=== PATIENT | female | born 1965 | race Caucasian/White ===

== ENCOUNTER 2017-01-10 02:13 | Emergency (ER) | payer MEDICARE ==
[2017-01-10] MEDS ORDERED: Phenergan 25 MG INJ IV ONE (02:42)
[2017-01-10] MEDS ORDERED: Sodium Chloride 0.9% 1000 ML 1,000 ML IV SCH (02:45)
[2017-01-10] MEDS ORDERED: Phenergan 25 MG INJ ONE (02:50)
[2017-01-10] MEDS ORDERED: Sodium Chloride 0.9% 1000 ML 1,000 ML ONE (02:50)
--- NOTE | 2017-01-10 02:50 | ERPHSYRPT ---
- History of Present Illness Time Seen by Provider: 01/10/17 02:28 Source: patient Exam Limitations: no limitations Patient Subjective Stated Complaint: STATES THAT SHE HAS TROUBLE FREQUENTLY WITH ANXIETY AND NON-SPECIFIC CP - WHILE VISITING HER DYING MOTHER IN THE [facility], SHE BEGAN TO HAVE ANXIETY WITH CHEST PAIN RADIATING TO THE JAW - DESCRIBES HAVING FATIGUE, SHE HAS BEEN UP FOR NEARLY 24 HOURS - ALSO REPORTS SOME DIZZINESS Triage Nursing Assessment: AMBULATORY TO TREATMENT AREA FROM [facility] - MOVES ALL EXTREMITIES WITH EQUAL STRENGTH. ALERT/ORIENTED - ANXIOUS AFFECT. SKIN PWD - NO RASH/INJURY APPRECIATED. RESPS EASY - NON-LABORED. SWELLING OF THE EXTREMITIES Physician History: ABOUT 1 HOUR AGO PT HAD BEEN STANDING AT HER MOTHER'S BEDSIDE AT [facility] WHEN SHE SUDDENLY FELT DIZZY(VERTIGO), ANXIOUS, SHORT OF AIR , SHARP BURNING ACHY LOWER MID-LEFT ANTERIOR CHEST PAIN RADIATING TO THE LEFT SIDE OF THE NECK AND LEFT SHOULDER. PT ALSO C/O INTERMITTENT DIAPHORESIS FOR THE PAST 11 HOURS. Allergies/Adverse Reactions: bupropion HCl [From Wellbutrin] Allergy (Mild, Verified 01/10/17 02:23) CVA SYMPTOMS citalopram hydrobromide [From Celexa] Allergy (Mild, Verified 01/10/17 02:23) UNKNOWN REACTION naproxen Allergy (Mild, Verified 01/10/17 02:23) VOMIT BLOOD sumatriptan [From Imitrex] Allergy (Mild, Verified 01/10/17 02:23) Headache ELEVATES BLOOD PRESSURE sumatriptan succinate [From Imitrex] Allergy (Mild, Verified 01/10/17 02:23) Headache ELEVATES BLOOD PRESSURE Home Medications: Albuterol Sulfate [Proair Hfa] 2 puffs IH TID 02/04/15 [History] Aripiprazole [Abilify] 30 mg PO DAILY 02/04/15 [History] Diazepam [Valium] 2 mg PO TID 02/04/15 [History] Duloxetine HCl 30 mg [Cymbalta 30 MG Capsule] 30 mg PO DAILY 02/04/15 [ History] Duloxetine HCl 30 mg [Cymbalta 30 MG Capsule] 60 mg PO HS 02/04/15 [ History] Gabapentin [Neurontin] 800 mg PO TID 02/04/15 [History] Hydrochlorothiazide 25 mg [hydroDIURIL 25 MG] 12.5 mg PO DAILY 02/04/15 [ History] Hydroxyzine HCl 10 mg PO TID 02/04/15 [History] Omeprazole 20 MG [Prilosec 20 mg] 40 mg PO DAILY 02/04/15 [History] Oxymorphone HCl [Oxymorphone HCl ER] 5 mg PO BID 02/04/15 [History] Ropinirole HCl 2 mg PO HS 02/04/15 [History] Tapentadol HCl [Nucynta ER] 200 mg PO BID 02/04/15 [History] Tizanidine HCl 4 mg [Zanaflex 4 MG] 4 mg PO HS 02/04/15 [History] Trazodone HCl [Oleptro ER] 150 mg PO HS 02/04/15 [History] Hx Tetanus, Diphtheria Vaccination/Date Given: Yes Hx Influenza Vaccination/Date Given: Yes Hx Pneumococcal Vaccination/Date Given: Yes Immunizations Up to Date: No - Review of Systems Constitutional: No Fever Ears, Nose, & Throat: No Throat Pain Respiratory: Dyspnea Cardiac: Chest Pain Abdominal/Gastrointestinal: No Abdominal Pain, No Nausea, No Vomiting Genitourinary Symptoms: No Dysuria Musculoskeletal: Neck Pain, Joint Pain (LEFT SHOULDER PAIN) Skin: No Rash Neurological: Dizziness, No Headache Endocrine: Excessive Sweating All Other Systems: Reviewed and Negative - Past Medical History Pertinent Past Medical History: Yes Neurological History: Migraines ENT History: No Pertinent History Cardiac History: Angina, Other Respiratory History: Asthma Endocrine Medical History: No Pertinent History Musculoskeletal History: Arthritis, Degenerative Disk Disease, Fibromyalgia GI Medical History: GERD, Ulcer History: No Pertinent History Psycho-Social History: Anxiety, Depression Female Reproductive Disorders: Fibroids Other Medical History: chronic back pain - Past Surgical History Past Surgical History: Yes Neuro Surgical History: No Pertinent History Cardiac: Cardiac Catheterization Respiratory: No Pertinent History Gastrointestinal: No Pertinent History Genitourinary: No Pertinent History Musculoskeletal: Joint Replacement Female Surgical History: Hysterectomy Other Surgical History: D&C, right elbow, tubes in ears, tonsilectomy, deviated septum - Social History Smoking Status: Current every day smoker How long have you smoked: 40 Exposure to second hand smoke: No Drug Use: none Patient Lives Alone: Yes - Female History Hx Last Menstrual Period: N/A Hx Now: No - Nursing Vital Signs Nursing Vital Signs: Initial Vital Signs Pulse Rate [Right Radial] 72 Pulse Rate 62 Respiratory Rate 16 Blood Pressure [Right Arm] 120/62 Pain Intensity 0 - Physical Exam General Appearance: alert, anxiety Eye Exam: PERRL/EOMI Ears, Nose, Throat Exam: TMs normal, pharynx normal, moist mucous membranes Neck Exam: normal inspection Respiratory Exam: lungs clear Cardiovascular Exam: normal heart sounds Gastrointestinal/Abdomen Exam: soft, normal bowel sounds Back Exam: normal range of motion Extremity Exam: normal inspection, normal range of motion, No pedal edema Neurologic Exam: alert, cooperative, No normal mood/affect (ANXIOUS) Skin Exam: warm, dry SpO2 Interpretation: normal SpO2: 99 Oxygen Delivery: Room Air - Course Nursing assessment & vital signs reviewed: Yes EKG Interpreted by Me: RATE (66), Sinus Rhythm, NORMAL AXIS, NORMAL INTERVALS - Radiology Exams Chest X-ray Interpretation: Interpreted by me, No Pneumonia Ordered Tests: Active Orders 24 hr Category Date Time Status Vehicle And Equipment Cleaner STAT Care 01/10/17 03:00 Active EKG-ER Only STAT Care 01/10/17 02:40 Active IV Insertion STAT Care 01/10/17 02:42 Active Pulse Oximetry (ED) STAT Care 01/10/17 02:40 Active CHEST 1 VIEW (PORTABLE) Stat Exams 01/10/17 02:41 Taken AMYLASE Stat Lab 01/10/17 02:45 Received CBC W DIFF Stat Lab 01/10/17 02:45 Completed CMP Stat Lab 01/10/17 02:45 Received LIPASE Stat Lab 01/10/17 02:45 Received MAGNESIUM Stat Lab 01/10/17 02:45 Received Manual Differential NC Stat Lab 01/10/17 02:45 Completed TROPONIN Stat Lab 01/10/17 02:45 Received UA Stat Lab 01/10/17 03:10 Completed Urine Triage Profile Stat Lab 01/10/17 03:10 Received Medication Summary Generic Name Dose Route Start Last Admin Trade Name Freq PRN Reason Stop Dose Admin Sodium Chloride 1,000 mls @ 300 mls/hr 01/10/17 02:45 01/10/17 02:59 Sodium Chloride 0.9% 1000 Ml IV 02/09/17 02:44 300 mls/hr .Q3H20M FIIF Administration Discontinued Medications Generic Name Dose Route Start Last Admin Trade Name Sheridan PRN Reason Stop Dose Admin Sodium Chloride Confirm 01/10/17 02:50 Sodium Chloride 0.9% 1000 Ml Administered 01/10/17 02:51 Dose 1,000 mls @ ud .ROUTE .STK-MED ONE Promethazine HCl 12.5 mg 01/10/17 02:42 01/10/17 02:59 Phenergan 25 Mg Inj IV 01/10/17 02:43 12.5 mg STAT ONE Administration Promethazine HCl Confirm 01/10/17 02:50 Phenergan 25 Mg Inj Administered 01/10/17 02:51 Dose 25 mg .ROUTE .STK-MED ONE Lab/Rad Data: Laboratory Result Diagrams 01/10/17 02:45 Laboratory Results 01/10/17 01/10/17 Range/Units 03:10 02:45 WBC 7.6 (4.0-10.5) K/mm3 RBC 4.52 (4.1-5.4) M/mm3 Hgb 13.5 (12.0-16.0) gm/dl Hct 41.8 (35-47) % MCV 92.5 (78-100) fl MCH 29.9 (26-32) pg MCHC 32.3 (32-36) g/dl RDW 13.1 (11.5-14.0) % Plt Count 192 (150-450) K/mm3 MPV 10.6 H (6-9.5) fl Segmented Neutrophils 42 (36.0-66.0) % Lymphocytes (Manual) 47 H (24-44) % Monocytes (Manual) 9 (0.0-12.0) % Eosinophils (Manual) 2 (0.00-3.0) % Differential Comment NORMAL Platelet Estimate NORMAL (NORMAL) Ur Collection Type CLEAN CATCH Urine Color YELLOW (YELLOW) Urine Appearance CLEAR (CLEAR) Urine pH 6.5 (5-6) Ur Specific [place] 1.010 (1.005-1.025) Urine Protein NEGATIVE (Negative) Urine Glucose (UA) NEGATIVE (NEGATIVE) mg/dL Urine Ketones NEGATIVE (NEGATIVE) Urine Nitrite NEGATIVE (NEGATIVE) Urine Bilirubin NEGATIVE (NEGATIVE) Urine Urobilinogen 0.2 (0-1) mg/dL Urine WBC (Auto) NEGATIVE (NEGATIVE) Urine RBC (Auto) NEGATIVE (0-5) Gallito/ul Specimen Received 01/10/17:0300 - Departure Time of Disposition: 05:08 Departure Disposition: Home Clinical Impression: CHEST PAIN, VERTIGO Condition: Fair Critical Care Time: No Instructions: Chest Pain, Vertigo Additional Instructions: FOLLOW UP WITH PRIVATE DOCTOR TOMORROW. Prescriptions: Meclizine HCl 25 mg [Antivert 25 mg] 25 mg PO Q8H PRN PRN #20 tablet PRN Reason: Dizziness
[2017-01-10 02:55] LABS: Mean Cell Volume 92.5 fl (78-100); Mean Corpuscular Hemoglobin 29.9 pg (26-32); Mean Platelet Volume 10.6 fl (6-9.5); Platelet Count 192 K/mm3 (150-450); Red Blood Count 4.52 M/mm3 (4.1-5.4); Red Cell Distribution Width 13.1 % (11.5-14.0); White Blood Count 7.6 K/mm3 (4.0-10.5)
[2017-01-10 03:20] LABS: COMPLETE URINE MICROSCOPIC? NO; Collection Type CLEAN CATCH; Ph 6.5 (5-6)
[2017-01-10 03:22] LABS: Eosinophil 2 % (0.00-3.0); Platelet Estimate NORMAL (NORMAL); Total Cells Counted 100
[2017-01-10 05:24] VITALS: BP 106/52; PULSE 80; O2SAT 100
--- NOTE | 2017-01-10 08:48 | XRAY ---
Indication: Chest pain. Comparison: September 25, 2014 Portable chest again demonstrates normal heart, lungs, and bony thorax.
== END 2017-01-10 05:25 | disposition home or self-care (01) ==
LOC: ED 02:13
DX: R07.89 Other chest pain (principal); R42 Dizziness and giddiness
CPT/HCPCS: 36000; 36415; 71010; 80053; 80307; 81002; 82150; 83690; 83735; 84484; 85025; 93005; 93041; 96360; 96361; 96374; 99283; 99284; J2550

== ENCOUNTER 2017-07-07 13:36 | Emergency (ER) | payer MEDICARE ==
[2017-07-07] MEDS ORDERED: Sodium Chloride 0.9% 1000 ML 1,000 ML IV STA (13:49)
[2017-07-07] MEDS ORDERED: Reglan 10 MG/2 ML IV ONE (13:49)
[2017-07-07] MEDS ORDERED: BENADRYL 50 MG/ML IV ONE (13:49)
[2017-07-07] MEDS ORDERED: TORAdol 30 mg Injection IV ONE (13:49)
--- NOTE | 2017-07-07 13:55 | ERPHSYRPT ---
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 She has headache for the past 4 days, worse and not better with fioricet which has been helping. Some nausea. No fever, chills, visual problems. No vomiting. Hit her head on a curtain kemal 2 weeks ago without LOC or incident. Left sided frontal headache and really similar to prior. Timing/Duration: day(s) (4), gradual onset Quality: aching Head Pain Location: frontal (left) Severity of Pain-Max: severe Severity of Pain-Current: severe Allergies/Adverse Reactions: bupropion HCl [From Wellbutrin] Allergy (Mild, Verified 07/07/17 13:44) CVA SYMPTOMS citalopram hydrobromide [From Celexa] Allergy (Mild, Verified 07/07/17 13:44) UNKNOWN REACTION naproxen Allergy (Mild, Verified 07/07/17 13:44) VOMIT BLOOD sumatriptan [From Imitrex] Allergy (Mild, Verified 07/07/17 13:44) Headache ELEVATES BLOOD PRESSURE sumatriptan succinate [From Imitrex] Allergy (Mild, Verified 07/07/17 13:44) Headache ELEVATES BLOOD PRESSURE Home Medications: Albuterol Sulfate [Proair Hfa] 2 puffs IH TID 02/04/15 [History] Aripiprazole [Abilify] 30 mg PO DAILY 02/04/15 [History] Diazepam [Valium] 2 mg PO TID 02/04/15 [History] Gabapentin [Neurontin] 800 mg PO TID 02/04/15 [History] Omeprazole 20 MG [Prilosec 20 mg] 40 mg PO DAILY 02/04/15 [History] Oxymorphone HCl [Oxymorphone HCl ER] 5 mg PO BID 02/04/15 [History] Ropinirole HCl 2 mg PO HS 02/04/15 [History] Tapentadol HCl [Nucynta ER] 200 mg PO BID 02/04/15 [History] Butalbital 1 gm MC UD 07/07/17 [History] Carisoprodol 350 mg [Soma 350 mg] 350 mg PO DAILY 07/07/17 [History] Codeine/Butalbit/Acetamin/Caff [Fioricet-Cod [id number] Cap] 1 each PO UD 05/18 [History] Furosemide 20 mg [Lasix 20 mg] 20 mg PO DAILY 07/07/17 [History] Magnesium 200 mg PO DAILY 07/07/17 [History] Potassium Chloride 20 Meq [Klor-Con 20 MEQ] 20 meq PO TID 07/07/17 [History] Topiramate 100 mg [Topamax 100 MG] 200 mg PO BID 07/07/17 [History] Venlafaxine HCl [Venlafaxine HCl ER] 150 mg PO BID 07/07/17 [History] Hx Tetanus, Diphtheria Vaccination/Date Given: Yes Hx Influenza Vaccination/Date Given: Yes Hx Pneumococcal Vaccination/Date Given: Yes Immunizations Up to Date: Yes - Review of Systems Constitutional: No Fever, No Chills Eyes: No Vision Changes, No Double Vision Ears, Nose, & Throat: No Symptoms Respiratory: No Symptoms Cardiac: No Chest Pain Abdominal/Gastrointestinal: Nausea, No Abdominal Pain, No Vomiting Musculoskeletal: No Neck Pain Skin: No Rash Neurological: Headache, No Dizziness, No Focal Weakness, No Paralysis, No Parasthesia, No Speech Changes All Other Systems: Reviewed and Negative - Past Medical History Pertinent Past Medical History: Yes Neurological History: Migraines ENT History: No Pertinent History Cardiac History: Angina, Other Respiratory History: Asthma Endocrine Medical History: No Pertinent History Musculoskeletal History: Arthritis, Degenerative Disk Disease, Fibromyalgia GI Medical History: GERD, Ulcer History: No Pertinent History Psycho-Social History: Anxiety, Depression Female Reproductive Disorders: Fibroids Other Medical History: chronic back pain - Past Surgical History Past Surgical History: Yes Neuro Surgical History: No Pertinent History Cardiac: Cardiac Catheterization Respiratory: No Pertinent History Gastrointestinal: No Pertinent History Genitourinary: No Pertinent History Musculoskeletal: Joint Replacement Female Surgical History: Hysterectomy Other Surgical History: D&C, right elbow, tubes in ears, deviated septum - Social History Smoking Status: Never smoker How long have you smoked: 40 Exposure to second hand smoke: No Drug Use: none Patient Lives Alone: Yes (here with family member) - Female History Hx Last Menstrual Period: HYSTERECTOMY Hx Now: No - Nursing Vital Signs Nursing Vital Signs: Initial Vital Signs Temperature 97.8 F 07/07/17 13:40 Pulse Rate 68 07/07/17 13:40 Respiratory Rate 16 07/07/17 13:40 Blood Pressure 110/80 07/07/17 13:40 O2 Sat by Pulse Oximetry 98 07/07/17 13:40 Pain Scale Pain Intensity 10 - Physical Exam General Appearance: alert, other (normaocephalix without contusion, laceration, or ecchymosis) Eye Exam: PERRL/EOMI Ears, Nose, Throat Exam: moist mucous membranes Neck Exam: normal inspection, non-tender, supple Respiratory Exam: normal breath sounds Cardiovascular Exam: regular rate/rhythm Gastrointestinal/Abdominal Exam: soft, No tenderness, No distention Extremity Exam: normal inspection, normal range of motion Mental Status Exam: alert, oriented x 3, 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 Exam: normal hearing, normal speech, PERRL Coordination/Gait Exam: normal gait Motor/Sensory Exam: no motor deficit, no sensory deficit, no pronator drift Skin Exam: normal color, warm, dry, No rash SpO2 Interpretation: normal SpO2: 98 Oxygen Delivery: Room Air - Course Nursing assessment & vital signs reviewed: Yes Ordered Tests: Active Orders 24 hr Category Date Time Status IV Insertion STAT Care 07/07/17 13:49 Active Medication Summary Generic Name Dose Route Start Last Admin Trade Name Freq PRN Reason Stop Dose Admin Magnesium Sulfate/Dextrose 100 mls @ 100 mls/hr 07/07/17 14:45 07/07/17 15:02 Magnesium 1 Gm / 100 Ml D5w IV 07/07/17 16:44 100 mls/hr Q1H FIFI Administration Discontinued Medications Generic Name Dose Route Start Last Admin Trade Name Freq PRN Reason Stop Dose Admin Diphenhydramine HCl 25 mg 07/07/17 13:49 07/07/17 14:04 Benadryl 50 Mg/Ml IV 07/07/17 13:50 25 mg STAT ONE Administration Diphenhydramine HCl Confirm 07/07/17 14:00 Benadryl 50 Mg/Ml Administered 07/07/17 14:01 Dose 50 mg .ROUTE .STK-MED ONE Sodium Chloride 1,000 mls @ 999 mls/hr 07/07/17 13:49 07/07/17 14:03 Sodium Chloride 0.9% 1000 Ml IV 07/07/17 14:49 999 mls/hr .Q1H1M STA Administration Sodium Chloride Confirm 07/07/17 14:00 Sodium Chloride 0.9% 1000 Ml Administered 07/07/17 14:01 Dose 1,000 mls @ ud .ROUTE .STK-MED ONE Ketorolac Tromethamine 30 mg 07/07/17 13:49 07/07/17 14:05 Toradol 30 Mg Injection IV 07/07/17 13:50 30 mg STAT ONE Administration Ketorolac Tromethamine Confirm 07/07/17 14:00 Toradol 30 Mg Injection Administered 07/07/17 14:01 Dose 30 mg .ROUTE .STK-MED ONE Metoclopramide HCl 10 mg 07/07/17 13:49 07/07/17 14:06 Reglan 10 Mg/2 Ml IV 07/07/17 13:50 10 mg STAT ONE Administration Metoclopramide HCl Confirm 07/07/17 14:00 Reglan 10 Mg/2 Ml Administered 07/07/17 14:01 Dose 10 mg .ROUTE .STK-MED ONE - Progress Progress Note: 07/07/17 15:11 She was given IVF, benadryl, reglan, and toradol. Still some headache so was given mag sulfate rider. GRIGGS improving. Will recheck and release with headache instructions. Counseled pt/family regarding: diagnosis, need for follow-up - Departure Time of Disposition: 15:12 Departure Disposition: Home Clinical Impression: Headache Qualifiers: Headache type: unspecified Headache chronicity pattern: episodic headache Intractability: intractable Qualified Code(s): R51 - Headache Condition: Stable Critical Care Time: No Referrals: CINDY ROSE MD [Primary Care Provider] - Instructions: Headache Additional Instructions: HEADACHE 1. After discharge from the emergency department, you should rest at home in a cool, dark, quiet place for 12-24 hours. 2. If any of the following signs or symptoms are noticed, you should be re- evaluated right away: A. Visual changes B. Stiff Neck C. Change in quality or location of pain D. Fever E. Recurrent vomiting 3. If pain medications were prescribed or given, they may cause drowsiness. No driving today and stay with family. Do not take any sedating medication for next 8 hours. Follow up with Dr Rose. Return for problems or concerns.
[2017-07-07] MEDS ORDERED: Sodium Chloride 0.9% 1000 ML 1,000 ML ONE (14:00)
[2017-07-07] MEDS ORDERED: BENADRYL 50 MG/ML ONE (14:00)
[2017-07-07] MEDS ORDERED: TORAdol 30 mg Injection ONE (14:00)
[2017-07-07] MEDS ORDERED: Reglan 10 MG/2 ML ONE (14:00)
[2017-07-07] MEDS ORDERED: Magnesium 1 Gm / 100 Ml D5W*** 200 ML IV ONE (14:34)
[2017-07-07] MEDS: Magnesium 1 Gm / 100 Ml D5W*** 100 ML IV SCH ×2 (14:45→15:02)
[2017-07-07 15:14] VITALS: O2SAT 98
[2017-07-07 15:20] VITALS: BP 124/88; PULSE 60
== END 2017-07-07 15:20 | disposition home or self-care (01) ==
LOC: ED 13:36
DX: R51 Headache (principal)
CPT/HCPCS: 36000; 96360; 96361; 96365; 96374; 96375; 99284; J1200; J1885; J3475

== ENCOUNTER 2017-08-27 17:58 | Emergency (ER) | payer MEDICARE ==
[2017-08-27] MEDS ORDERED: DECADRON 10MG INJ. IM ONE (18:20)
[2017-08-27] MEDS ORDERED: Norflex 60 MG/2 ML IM ONE (18:20)
[2017-08-27] MEDS ORDERED: Ketamine HCl 50 MG/ML IM ONE (18:21)
[2017-08-27] MEDS ORDERED: DECADRON 10MG INJ. ONE (18:39)
[2017-08-27] MEDS ORDERED: Norflex 60 MG/2 ML ONE (18:39)
--- NOTE | 2017-08-27 19:15 | ERPHSYRPT ---
- History of Present Illness Time Seen by Provider: 08/27/17 18:10 Source: patient, family Exam Limitations: no limitations Patient Subjective Stated Complaint: pt here for chronic pain to lower back and states she taken the maxium pain meds for the day and has talked with her pain specialist today. Triage Nursing Assessment: pt arrived per , sedated.answers all questions appropriate.able to undress self, resp easy, skin w/d Physician History: patinet azeem exacerbation of chronic bacxk pain; exerted helping neighbor move yesterday; no fall; same chronic pain but worse; has maxed her pain meds; no change urine of BMs Timing/Duration: today (worse), yesterday (onset), gradual onset, worse Method of Injury: lifting, other (staining) Quality: aching Back Pain Location: lumbar spine Back Pain Radiation: buttocks Severity of Pain-Max: severe Severity of Pain-Current: severe (/) Modifying Factors: Improves With: movement (worse) Associated Symptoms: lower back pain, muscle spasms Previous symptoms: same symptoms as today Allergies/Adverse Reactions: bupropion HCl [From Wellbutrin] Allergy (Mild, Verified 08/27/17 18:18) CVA SYMPTOMS citalopram hydrobromide [From Celexa] Allergy (Mild, Verified 08/27/17 18:18) UNKNOWN REACTION naproxen Allergy (Mild, Verified 08/27/17 18:18) VOMIT BLOOD sumatriptan [From Imitrex] Allergy (Mild, Verified 08/27/17 18:18) Headache ELEVATES BLOOD PRESSURE sumatriptan succinate [From Imitrex] Allergy (Mild, Verified 08/27/17 18:18) Headache ELEVATES BLOOD PRESSURE Home Medications: Albuterol Sulfate [Proair Hfa] 2 puffs IH TID 02/04/15 [History] Aripiprazole [Abilify] 30 mg PO DAILY 02/04/15 [History] Diazepam [Valium] 2 mg PO TID 02/04/15 [History] Gabapentin [Neurontin] 800 mg PO TID 02/04/15 [History] Omeprazole 20 MG [Prilosec 20 mg] 40 mg PO DAILY 02/04/15 [History] Oxymorphone HCl [Oxymorphone HCl ER] 5 mg PO BID 02/04/15 [History] Ropinirole HCl 2 mg PO HS 02/04/15 [History] Tapentadol HCl [Nucynta ER] 200 mg PO BID 02/04/15 [History] Butalbital 1 gm MC UD 07/07/17 [History] Carisoprodol 350 mg [Soma 350 mg] 350 mg PO DAILY 07/07/17 [History] Codeine/Butalbit/Acetamin/Caff [Fioricet-Cod 03-15-561-40 Cap] 1 each PO UD 05/18 [History] Furosemide 20 mg [Lasix 20 mg] 20 mg PO DAILY 07/07/17 [History] Magnesium 200 mg PO DAILY 07/07/17 [History] Potassium Chloride 20 Meq [Klor-Con 20 MEQ] 20 meq PO TID 07/07/17 [History] Topiramate 100 mg [Topamax 100 MG] 200 mg PO BID 07/07/17 [History] Venlafaxine HCl [Venlafaxine HCl ER] 150 mg PO BID 07/07/17 [History] Hx Tetanus, Diphtheria Vaccination/Date Given: Yes Hx Influenza Vaccination/Date Given: Yes Hx Pneumococcal Vaccination/Date Given: Yes Immunizations Up to Date: Yes - Review of Systems Constitutional: No Symptoms Eyes: No Symptoms Ears, Nose, & Throat: No Symptoms Respiratory: No Cough, No Dyspnea, No Wheezing Cardiac: No Chest Pain, No Palpitations, No Syncope Abdominal/Gastrointestinal: No Abdominal Pain, No Nausea, No Vomiting, No Diarrhea Genitourinary Symptoms: No Hematuria, No Incontinence, No Urinary Retention Musculoskeletal: Back Pain, No Fall, No Injury Skin: No Symptoms Neurological: No Symptoms Psychological: No Symptoms Endocrine: No Symptoms Hematologic/Lymphatic: No Symptoms Immunological/Allergic: No Symptoms - Past Medical History Pertinent Past Medical History: Yes Neurological History: Migraines ENT History: No Pertinent History Cardiac History: Angina, Other Respiratory History: Asthma Endocrine Medical History: No Pertinent History Musculoskeletal History: Arthritis, Degenerative Disk Disease, Fibromyalgia GI Medical History: GERD, Ulcer History: No Pertinent History Psycho-Social History: Anxiety, Depression Female Reproductive Disorders: Fibroids Other Medical History: chronic back pain - Past Surgical History Past Surgical History: Yes Neuro Surgical History: No Pertinent History Cardiac: Cardiac Catheterization Respiratory: No Pertinent History Gastrointestinal: No Pertinent History Genitourinary: No Pertinent History Musculoskeletal: Joint Replacement Female Surgical History: Hysterectomy Other Surgical History: D&C, right elbow, tubes in ears, deviated septum - Social History Smoking Status: Current every day smoker How long have you smoked: 40 Exposure to second hand smoke: Yes Alcohol Use: None Drug Use: none Patient Lives Alone: No Significant Family History: no pertinent family hx - Female History Hx Last Menstrual Period: hyster Hx Now: No - Nursing Vital Signs Nursing Vital Signs: Initial Vital Signs Temperature 98.3 F 08/27/17 18:06 Pulse Rate 76 08/27/17 18:06 Respiratory Rate 14 08/27/17 18:06 Blood Pressure 123/83 08/27/17 18:06 O2 Sat by Pulse Oximetry 98 08/27/17 18:06 Pain Scale Pain Intensity [Back] 9 Pain Intensity 9 - Physical Exam General Appearance: severe distress (back pain), alert, thin Eye Exam: PERRL/EOMI, eyes nml inspection, No photophobia Ears, Nose, Throat Exam: normal ENT inspection, TMs normal, pharynx normal, moist mucous membranes Neck Exam: normal inspection, non-tender, supple, full range of motion, No meningismus Respiratory Exam: normal breath sounds, lungs clear, airway intact, No chest tenderness, No respiratory distress Cardiovascular Exam: regular rate/rhythm, normal heart sounds, normal peripheral pulses, capillary refill <2 sec, No murmur Gastrointestinal Exam: soft, normal bowel sounds, No tenderness, No guarding, No rebound Pelvic Exam: deferred Rectal Exam: deferred Back Exam: normal inspection, muscle spasm (lllllower back bilatrera), No normal range of motion (pain), No CVA tenderness, No vertebral tenderness Extremity Exam: normal inspection, normal range of motion, other (pain wiht straight leg raising left> right), No lily's sign, No pedal edema Peripheral Pulses: carotid (R): 4+, carotid (L): 4+, femoral (R): 4+, femoral (L ): 4+ Neurologic Exam: alert, oriented x 3, cooperative, airport 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 IM 08/27/17 18:21 10 mg STAT ONE Administration Dexamethasone Sodium Phosphate Confirm 08/27/17 18:39 Decadron 10mg Inj. Administered 08/27/17 18:40 Dose 10 mg .ROUTE .STK-MED ONE Ketamine HCl 45 mg 08/27/17 18:21 08/27/17 19:00 Ketamine Hcl 50 Mg/Ml IM 08/27/17 18:22 45 mg STAT ONE Administration Orphenadrine Citrate 60 mg 08/27/17 18:20 08/27/17 18:50 Norflex 60 Mg/2 Ml IM 08/27/17 18:21 60 mg STAT ONE Administration Orphenadrine Citrate Confirm 08/27/17 18:39 Norflex 60 Mg/2 Ml Administered 08/27/17 18:40 Dose 60 mg .ROUTE .STK-MED ONE - Progress Progress: improved (after meds), re-examined (after meds) Progress Note: 08/27/17 19:14 discussed treatmetnn plan; here with friend; medicate and recheck; much improved after meds; will release; instructions given Counseled pt/family regarding: diagnosis, need for follow-up - Departure Time of Disposition: 19:15 Departure Disposition: Home Clinical Impression: Acute exacerbation of chronic low back pain Condition: Stable Critical Care Time: No Referrals: CINDY ROSE MD [Primary Care Provider] - Instructions: Low Back Pain Additional Instructions: Back pain instructions. Rest, ice x 24-48 hours, then warm compresses; no heavy lifting (>20#'s) x 3-5 days; call [facility] or [facility] Med doctor in am for follow up appointment and or referral as needed.; continue home meds Return if problems. Take meds as prescribed. Follow-up with family doctor as directed. Call for appointment. Return if any problems. If you smoke please stop. Call or follow up with your family doctor for assistance if you need it to stop. Please wear your seatbelt when driving. Have a nice day. Thank you for allowing us to participate in your care today. :o) Dr Antonio Luz
[2017-08-27 19:32] VITALS: O2SAT 99
[2017-08-27 19:48] VITALS: BP 113/70; PULSE 90
== END 2017-08-27 19:48 | disposition home or self-care (01) ==
LOC: ED 17:58
DX: M54.5 Low back pain (principal); G89.29 Other chronic pain; X50.0XXA Overexertion from strenuous movement or load, initial encounter
CPT/HCPCS: 96372; 99283; J1100; J2360

== ENCOUNTER 2018-01-22 20:04 | Emergency (ER) | payer MEDICARE ==
[2018-01-22] MEDS ORDERED: Norflex 60 MG/2 ML IM ONE (20:56)
[2018-01-22] MEDS ORDERED: TORAdol 30 mg Injection IM ONE (20:56)
[2018-01-22] MEDS ORDERED: TORAdol 30 mg Injection ONE (21:03)
[2018-01-22] MEDS ORDERED: Norflex 60 MG/2 ML ONE (21:04)
--- NOTE | 2018-01-22 21:05 | ERPHSYRPT ---
- History of Present Illness Time Seen by Provider: 01/22/18 20:50 Source: patient Exam Limitations: no limitations Patient Subjective Stated Complaint: patient was moving a recliner from one room to another. Got hurt but it wasn't a big deal and then went to move some totes and twisted her back wrong and felt it "pop". Pain radiated from low back to up high and has now caused a migraine. Triage Nursing Assessment: Pt A&O x3, walked in with a cane very slowly and appears to be in severe pain. bilateral upper and lower pulses normal. vitals wnl. Physician History: Pt has a Hx of chronic back pain, had MRI recently. She was lifting furniture today, felt a "pop" in her low back and developed severe pain, radiating to both legs. She denies leg weakness, numbness, no loss of bladder or bowel control, no fever, abdominal pain or vomiting. Timing/Duration: today Method of Injury: lifting Quality: radiating, sharp Back Pain Location: lumbar spine Back Pain Radiation: buttocks, upper legs Severity of Pain-Max: severe Severity of Pain-Current: severe Modifying Factors: Improves With: immobilization, movement Associated Symptoms: denies symptoms Previous symptoms: same symptoms as today Allergies/Adverse Reactions: bupropion HCl [From Wellbutrin] Allergy (Mild, Verified 01/22/18 20:31) CVA SYMPTOMS citalopram hydrobromide [From Celexa] Allergy (Mild, Verified 01/22/18 20:31) UNKNOWN REACTION naproxen Allergy (Mild, Verified 01/22/18 20:31) VOMIT BLOOD sumatriptan [From Imitrex] Allergy (Mild, Verified 01/22/18 20:31) Headache ELEVATES BLOOD PRESSURE sumatriptan succinate [From Imitrex] Allergy (Mild, Verified 01/22/18 20:31) Headache ELEVATES BLOOD PRESSURE Home Medications: Albuterol Sulfate [Proair Hfa] 2 puffs IH TID 02/04/15 [History] Aripiprazole [Abilify] 30 mg PO DAILY 02/04/15 [History] Diazepam [Valium] 2 mg PO TID 02/04/15 [History] Gabapentin [Neurontin] 800 mg PO TID 02/04/15 [History] Omeprazole 20 MG [Prilosec 20 mg] 40 mg PO DAILY 02/04/15 [History] Oxymorphone HCl [Oxymorphone HCl ER] 5 mg PO BID 02/04/15 [History] Ropinirole HCl 2 mg PO HS 02/04/15 [History] Tapentadol HCl [Nucynta ER] 200 mg PO BID 02/04/15 [History] Butalbital 1 gm MC UD 07/07/17 [History] Carisoprodol 350 mg [Soma 350 mg] 350 mg PO DAILY 07/07/17 [History] Codeine/Butalbit/Acetamin/Caff [Fioricet-Cod 18-14-360-40 Cap] 1 each PO UD 05/18 [History] Furosemide 20 mg [Lasix 20 mg] 20 mg PO DAILY 07/07/17 [History] Magnesium 200 mg PO DAILY 07/07/17 [History] Potassium Chloride 20 Meq [Klor-Con 20 MEQ] 20 meq PO TID 07/07/17 [History] Topiramate 100 mg [Topamax 100 MG] 200 mg PO BID 07/07/17 [History] Venlafaxine HCl [Venlafaxine HCl ER] 150 mg PO BID 07/07/17 [History] Phentermine HCl [Adipex-P] 37.5 mg PO DAILY 01/22/18 [History] Hx Tetanus, Diphtheria Vaccination/Date Given: Yes Hx Influenza Vaccination/Date Given: Yes Hx Pneumococcal Vaccination/Date Given: Yes - Review of Systems Constitutional: No Symptoms Abdominal/Gastrointestinal: Nausea Musculoskeletal: Back Pain All Other Systems: Reviewed and Negative - Past Medical History Pertinent Past Medical History: Yes Neurological History: Migraines ENT History: No Pertinent History Cardiac History: Angina, Other Respiratory History: Asthma Endocrine Medical History: No Pertinent History Musculoskeletal History: Arthritis, Degenerative Disk Disease, Fibromyalgia GI Medical History: GERD, Ulcer History: No Pertinent History Psycho-Social History: Anxiety, Depression Female Reproductive Disorders: Fibroids Other Medical History: chronic back pain - Past Surgical History Past Surgical History: Yes Neuro Surgical History: No Pertinent History Cardiac: Cardiac Catheterization Respiratory: No Pertinent History Gastrointestinal: No Pertinent History Genitourinary: No Pertinent History Musculoskeletal: Joint Replacement Female Surgical History: Hysterectomy Other Surgical History: D&C, right elbow, tubes in ears, deviated septum - Social History Smoking Status: Current every day smoker How long have you smoked: 40 Exposure to second hand smoke: Yes Alcohol Use: None Drug Use: none Patient Lives Alone: No Significant Family History: no pertinent family hx - Female History Hx Now: No - Nursing Vital Signs Nursing Vital Signs: Initial Vital Signs Temperature 98.0 F 01/22/18 20:14 Pulse Rate 82 01/22/18 20:14 Blood Pressure 112/76 01/22/18 20:14 O2 Sat by Pulse Oximetry 98 01/22/18 20:14 Pain Scale Pain Intensity [Posterior Back 9 ] Pain Intensity 8 - Physical Exam General Appearance: no apparent distress Eye Exam: eyes nml inspection Ears, Nose, Throat Exam: normal ENT inspection Neck Exam: normal inspection, non-tender, supple Respiratory Exam: normal breath sounds, lungs clear, airway intact, No chest tenderness Cardiovascular Exam: regular rate/rhythm, normal heart sounds, normal peripheral pulses, No murmur Gastrointestinal Exam: soft, normal bowel sounds, No tenderness, No distention Back Exam: normal inspection, decreased range of motion, muscle spasm, No CVA tenderness, No vertebral tenderness, No point tenderness Extremity Exam: normal inspection, No calf tenderness Neurologic Exam: alert, oriented x 3, cooperative, normal mood/affect, No motor deficits Skin Exam: normal color, warm, dry, No rash Lymphatic Exam: No adenopathy SpO2 Interpretation: normal SpO2: 98 Oxygen Delivery: Room Air - Radiology Exams L-Spine X-ray Interpretation: Interpreted by me, Negative Ordered Tests: Active Orders 24 hr Category Date Time Status LUMBAR LIMITED (2 OR 3 VIEWS) Stat Exams 01/22/18 20:56 Taken CULTURE,URINE Stat Lab 01/22/18 23:15 Received UA W/ MICROSCOPIC Stat Lab 01/22/18 23:15 Completed Urine Triage Profile Stat Lab 01/22/18 22:30 Completed Medication Summary Discontinued Medications Generic Name Dose Route Start Last Admin Trade Name Sheridan PRN Reason Stop Dose Admin Cephalexin HCl 500 mg 01/23/18 00:07 Keflex 500 Mg PO 01/23/18 00:08 STAT ONE Ketorolac Tromethamine 60 mg 01/22/18 20:56 01/22/18 21:45 Toradol 30 Mg Injection IM 01/22/18 20:57 60 mg STAT ONE Administration Ketorolac Tromethamine Confirm 01/22/18 21:03 Toradol 30 Mg Injection Administered 01/22/18 21:04 Dose 60 mg .ROUTE .STK-MED ONE Morphine Sulfate 4 mg 01/22/18 22:59 01/22/18 23:10 Morphine Sulfate 4 Mg Inj IM 01/22/18 23:00 4 mg STAT ONE Administration Morphine Sulfate Confirm 01/22/18 23:06 Morphine Sulfate 4 Mg Inj Administered 01/22/18 23:07 Dose 4 mg .ROUTE .STK-MED ONE Orphenadrine Citrate 60 mg 01/22/18 20:56 01/22/18 21:45 Norflex 60 Mg/2 Ml IM 01/22/18 20:57 60 mg STAT ONE Administration Orphenadrine Citrate Confirm 01/22/18 21:04 Norflex 60 Mg/2 Ml Administered 01/22/18 21:05 Dose 60 mg .ROUTE .STK-MED ONE Promethazine HCl 25 mg 01/22/18 22:59 01/22/18 23:10 Phenergan 25 Mg Inj IM 01/22/18 23:00 25 mg STAT ONE Administration Promethazine HCl Confirm 01/22/18 23:06 Phenergan 25 Mg Inj Administered 01/22/18 23:07 Dose 25 mg .ROUTE .STK-MED ONE Lab/Rad Data: Laboratory Results 01/22/18 01/22/18 Range/Units 23:15 22:30 Ur Collection Type CCMS Urine Color YELLOW (YELLOW) Urine Appearance SLIGHTLY CLOUDY (CLEAR) Urine pH 6.0 (5-6) Ur Specific [place] 1.020 (1.005-1.025) Urine Protein NEGATIVE (Negative) Urine Ketones NEGATIVE (NEGATIVE) Urine Blood NEGATIVE (0-5) [place]/ul Urine Nitrite POSITIVE (NEGATIVE) Urine Bilirubin NEGATIVE (NEGATIVE) Urine Urobilinogen NORMAL (0-1) mg/dL Ur Leukocyte Esterase 1+ (NEGATIVE) Urine Microscopic WBC 25-50 (0-5) /HPF Ur Epithelial Cells RARE (FEW) /HPF Calcium Oxalate Crystal 10-25 (NEGATIVE) /HPF Urine Bacteria MANY (NEGATIVE) /HPF Urine Mucus SLIGHT (NEGATIVE) /HPF Urine Culture Reflexed YES (NO) Urine Glucose NEGATIVE (NEGATIVE) mg/dL Urine Opiates Level NEG. (NEGATIVE) Ur Methadone NEG. (NEGATIVE) Urine Barbiturates POS. (NEGATIVE) Ur Phencyclidine (PCP) NEG. (NEGATIVE) Urine Amphetamine NEG. (NEGATIVE) U Benzodiazepine Level POS. (NEGATIVE) Urine Cocaine NEG. (NEGATIVE) Urine Marijuana (THC) NEG. (NEGATIVE) Specimen Received 01-22-18 6642 - Progress Progress: improved Progress Note: 01/23/18 00:22 Improved after Morphine im, no fever, asleep, no severe pain or distress. I discussed the results with her, she was given Keflex x1 PO. She told me that she takes Opana for her back pain, but she is very low on it. I suggested to contact her Pain Clinic this morning,, I gave her Rx for Opana 5mg Po Q6h PRN # 5 tablets. - Departure Time of Disposition: 00:25 Departure Disposition: Home Clinical Impression: Back pain Qualifiers: Back pain location: low back pain Chronicity: chronic Back pain laterality: bilateral Sciatica presence: with sciatica Sciatica laterality: sciatica laterality unspecified Qualified Code(s): M54.40 - Lumbago with sciatica, unspecified side; G89.29 - Other chronic pain; G89.29 - Other chronic pain UTI (urinary tract infection) Qualifiers: Urinary tract infection type: site unspecified Hematuria presence: without hematuria Qualified Code(s): N39.0 - Urinary tract infection, site not specified Condition: Stable Critical Care Time: No Referrals: KAUSHIK CABRERA MD [Primary Care Provider] - Additional Instructions: Rest bx 2-3 days, apply moist heat to painful muscles, return if severe pain, sudden leg weakness, numbness, loss of bladder, bowel control!
[2018-01-22] MEDS ORDERED: Phenergan 25 MG INJ IM ONE (22:59)
[2018-01-22] MEDS ORDERED: MORPHINE SULFATE 4 MG INJ IM ONE (22:59)
[2018-01-22] MEDS ORDERED: MORPHINE SULFATE 4 MG INJ ONE (23:06)
[2018-01-22] MEDS ORDERED: Phenergan 25 MG INJ ONE (23:06)
[2018-01-22 23:27] LABS: Amphetamine,Urine NEG. (NEGATIVE); Barbiturate,Urine POS. (NEGATIVE); Benzodiazepine,Urine POS. (NEGATIVE); Cocaine,Urine NEG. (NEGATIVE); Methadone,Urine NEG. (NEGATIVE); Opiate,Urine NEG. (NEGATIVE); PCP,Urine NEG. (NEGATIVE); THC,Urine NEG. (NEGATIVE)
[2018-01-22 23:27] LABS: Appearance SLIGHTLY CLOUDY (CLEAR); Glucose NEGATIVE (NEGATIVE); Ketones NEGATIVE (NEGATIVE); Leukocyte Esterase 1+ (NEGATIVE); Nitrite POSITIVE (NEGATIVE); Protein,Urine Dip NEGATIVE (Negative)
[2018-01-22 23:28] LABS: Bilirubin NEGATIVE (NEGATIVE); Blood NEGATIVE Ery/ul (0-5); Urobilinogen NORMAL mg/dL (0-1)
[2018-01-22 23:29] LABS: Bacteria MANY /HPF (NEGATIVE); Epithelial Cells RARE /HPF (FEW); Mucus SLIGHT /HPF (NEGATIVE); WBC 25-50 /HPF (0-5)
[2018-01-23] MEDS ORDERED: KEFLEX 500 MG PO ONE (00:07)
[2018-01-23] MEDS ORDERED: KEFLEX 500 MG ONE (00:21)
[2018-01-23 00:48] VITALS: BP 129/67; PULSE 75; O2SAT 97
--- NOTE | 2018-01-23 08:54 | XRAY ---
Indication: Pain. Comparison: April 08, 2014. 3 views of the lumbar spine unchanged again demonstrating minimal levoscoliosis, minimal multilevel anterior endplate spurring, mild L3-S1 disc space narrowing, and bilateral L5-S1 degenerative facet arthropathy. No new/acute findings.
== END 2018-01-23 00:48 | disposition home or self-care (01) ==
LOC: ED 20:04
DX: M54.40 Lumbago with sciatica, unspecified side (principal); G89.29 Other chronic pain; N39.0 Urinary tract infection, site not specified; Z79.899 Other long term (current) drug therapy
CPT/HCPCS: 72100; 80307; 81000; 87077; 87086; 87186; 96372; 99284; J1885; J2270; J2360; J2550; A9270-GY

== ENCOUNTER 2019-04-20 16:44 | Observation (INO) | payer MEDICARE ==
[2019-04-20 17:23] LABS: BASOPHIL % 0.4 % (0.0-0.4); Basophil (Absolute #) 0.03 (0-0.4); Eosinophil % 2.1 % (0.00-5.0); Eosinophil (Absolute #) 0.14 (0-0.5); Granulocyte Absolute (ANC) 3.03 (1.4-6.9); Granulocytes % 45.1 % (36.0-66.0); Hematocrit 41.8 % (35-47); Hemoglobin 13.9 gm/dl (12.0-16.0); Lymphocyte (Absolute #) 2.93 (1.0-4.6); Lymphocytes % 43.6 % (24.0-44.0); Mean Cell Volume 90.3 fl (78-100); Mean Corpuscular Hgb Concent. 33.3 g/dl (32-36); Mean Platelet Volume 10.4 fl (6-9.5); Monocyte (Absolute #) 0.59 (0.0-1.3); Monocytes % 8.8 % (0.0-12.0); Platelet Count 210 K/mm3 (150-450); Red Blood Count 4.63 M/mm3 (4.1-5.4); Red Cell Distribution Width 12.9 % (11.5-14.0); White Blood Count 6.7 K/mm3 (4.0-10.5)
[2019-04-20 17:42] LABS: ALKALINE PHOSPHATASE 74 U/L (38-126); ANION GAP 12.8 MEQ/L (5-15); BLOOD UREA NITROGEN 12 mg/dL (7-17); CHLORIDE 105 mmol/L (98-107); Calcium 9.7 mg/dL (8.4-10.2); Carbon Dioxide 27 mmol/L (22-30); Creatinine 1 0.64 mg/dL (0.52-1.04); Glucose 93 mg/dL (74-106); Potassium 3.8 mmol/L (3.5-5.1); SGOT/AST 21 U/L (14-36); SGPT/ALT 17 U/L (0-35); SODIUM 141 mmol/L (137-145); Total Protein 6.6 g/dL (6.3-8.2)
[2019-04-20 17:43] LABS: TROPONIN < 0.012 ng/mL (0.000-0.034)
[2019-04-20] MEDS ORDERED: BABY ASPIRIN 81 MG CHEW PO ONE (18:03)
--- NOTE | 2019-04-20 18:08 | ERPHSYRPT ---
- History of Present Illness Time Seen by Provider: 04/20/19 17:58 Historian: patient Exam Limitations: no limitations Patient Subjective Stated Complaint: pt here for sudden onset of chest pain to center of chest. nonradiating.no nausea, some sob which is gone now. Triage Nursing Assessment: pt alert, arrived per ambulance. was given 2 nitro enroute that helped, skin w/d/p,,chest clear, abd soft, no edema Physician History: 53-year-old white female with history of migraines, asthma, angina, GERD, ulcers , fibroids, arthritis, degenerative disc disease, fibromyalgia, anxiety, depression, panic disorder, chronic back pain Patient arrives with complaint of pain in her anterior sternal region described as a pressure associated with shortness of breath and nausea onset 2 hours ago Patient states that she took one of 81 mg aspirin Patient states that she is on oxymorphone 10 mg the sent to ER 250 mg in soma 350 mg at home She states she did not take her oxymorphone Past medical history includes migraines, asthma, angina, GERD, ulcers, fibroids , arthritis, degenerative disc disease, fibromyalgia, anxiety, depression, panic disorder, chronic back pain Past surgical history includes cardiac catheter, tonsillectomy, hysterectomy, right elbow replacement, D&C, 2-3 years, deviated septum Timing/Duration: today (2 hours prior to arrival) Activities at Onset: none Quality: pressure Location: substernal Chest Pain Radiation: no radiation Severity of Pain-Max: moderate Modifying Factors: Improves With: nothing Associated Symptoms: nausea, shortness of breath, No vomiting, No palpitations, No heartburn, No abdominal pain, No cough, No hurts to breathe, No diaphoresis, No chills, No fever, No fatigue, No weakness, No swelling/lump in chest, No syncope, No rash, No headache, No dizziness, No edema, No back pain Prior Chest Pain/Cardiac Workup: cardiac cath Nitro Today/Relief: 0.4 mg x 2 Aspirin Treatment Today: 81 mg x 1 Allergies/Adverse Reactions: bupropion HCl [From Wellbutrin] Allergy (Mild, Verified 04/20/19 16:59) CVA SYMPTOMS citalopram hydrobromide [From Celexa] Allergy (Mild, Verified 04/20/19 16:59) UNKNOWN REACTION naproxen Allergy (Mild, Verified 04/20/19 16:59) VOMIT BLOOD sumatriptan [From Imitrex] Allergy (Mild, Verified 04/20/19 16:59) Headache ELEVATES BLOOD PRESSURE sumatriptan succinate [From Imitrex] Allergy (Mild, Verified 04/20/19 16:59) Headache ELEVATES BLOOD PRESSURE Home Medications: Albuterol Sulfate [Proair Hfa] 2 puffs IH TID 02/04/15 [History] Aripiprazole [Abilify] 30 mg PO DAILY 02/04/15 [History] Gabapentin [Neurontin] 800 mg PO TID 02/04/15 [History] Omeprazole 20 MG [Prilosec 20 mg] 40 mg PO DAILY 02/04/15 [History] Oxymorphone HCl [Oxymorphone HCl ER] 5 mg PO BID 02/04/15 [History] Ropinirole HCl 2 mg PO HS 02/04/15 [History] Tapentadol HCl [Nucynta ER] 200 mg PO BID 02/04/15 [History] Butalbital 1 gm MC UD 07/07/17 [History] Carisoprodol 350 mg [Soma 350 mg] 350 mg PO DAILY 07/07/17 [History] Codeine/Butalbit/Acetamin/Caff [Fioricet-Cod [id number] Cap] 1 each PO UD 05/18 [History] Furosemide 20 mg [Lasix 20 mg] 20 mg PO DAILY 07/07/17 [History] Potassium Chloride 20 Meq [Klor-Con 20 MEQ] 20 meq PO TID 07/07/17 [History] Venlafaxine HCl [Venlafaxine HCl ER] 150 mg PO BID 07/07/17 [History] Phentermine HCl [Adipex-P] 37.5 mg PO DAILY 01/22/18 [History] Hx Tetanus, Diphtheria Vaccination/Date Given: No Hx Influenza Vaccination/Date Given: No Hx Pneumococcal Vaccination/Date Given: No Immunizations Up to Date: Yes - Review of Systems Constitutional: No Fever, No Chills Eyes: No Symptoms Ears, Nose, & Throat: No Symptoms Respiratory: Dyspnea, No Cough Cardiac: Chest Pain Abdominal/Gastrointestinal: Nausea, No Abdominal Pain, No Vomiting, No Diarrhea Genitourinary Symptoms: No Dysuria Musculoskeletal: No Back Pain, No Neck Pain Skin: No Rash Neurological: No Dizziness, No Focal Weakness, No Sensory Changes Psychological: No Symptoms Endocrine: No Symptoms All Other Systems: Reviewed and Negative - Past Medical History Pertinent Past Medical History: Yes Neurological History: Migraines ENT History: No Pertinent History Cardiac History: Angina, Other Respiratory History: Asthma Endocrine Medical History: No Pertinent History Musculoskeletal History: Arthritis, Degenerative Disk Disease, Fibromyalgia GI Medical History: GERD, Ulcer History: No Pertinent History Psycho-Social History: Anxiety, Depression, Panic Disorder Female Reproductive Disorders: Fibroids Other Medical History: chronic back pain - Past Surgical History Past Surgical History: Yes Neuro Surgical History: No Pertinent History Cardiac: Cardiac Catheterization Respiratory: No Pertinent History Gastrointestinal: No Pertinent History Genitourinary: No Pertinent History Musculoskeletal: Joint Replacement Female Surgical History: Hysterectomy Other Surgical History: D&C, right elbow, tubes in ears, deviated septum - Social History Smoking Status: Current every day smoker How long have you smoked: 40 Exposure to second hand smoke: Yes Alcohol Use: None Drug Use: none Patient Lives Alone: No Significant Family History: no pertinent family hx - Female History Hx Last Menstrual Period: hyster Hx Now: No - Nursing Vital Signs Nursing Vital Signs: Initial Vital Signs Temperature 98.7 F 04/20/19 16:49 Pulse Rate 69 04/20/19 16:49 Respiratory Rate 20 04/20/19 16:49 Blood Pressure 124/78 04/20/19 16:49 O2 Sat by Pulse Oximetry 97 04/20/19 16:49 Pain Scale Pain Intensity 7 - Physical Exam General Appearance: mild distress, alert Eye Exam: PERRL/EOMI, eyes nml inspection Ears, Nose, Throat Exam: normal ENT inspection, moist mucous membranes Neck Exam: normal inspection, non-tender, supple, full range of motion Respiratory Exam: normal breath sounds, lungs clear, No respiratory distress Cardiovascular Exam: regular rate/rhythm, capillary refill <2 sec Gastrointestinal/Abdomen Exam: soft, No tenderness, No mass Back Exam: normal inspection, No CVA tenderness, No vertebral tenderness Extremity Exam: normal inspection, normal range of motion Neurologic Exam: alert, oriented x 3, cooperative, 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, normal mood/affect, sensation nml, No motor deficits Skin Exam: normal color, warm, dry SpO2 Interpretation: normal (98%) SpO2: 98 - Course Nursing assessment & vital signs reviewed: Yes EKG Interpreted by Me: RATE (66 bpm), Sinus Rhythm, NORMAL AXIS, Other (EKG: Sinus rhythm, 66 beats per minute, normal axis, no acute ST or T wave changes.) - Radiology Exams Chest X-ray Interpretation: Interpreted by me (no acute disease process noted) Ordered Tests: Active Orders 24 hr Category Date Time Status [employer] STAT Care 04/20/19 17:04 Active EKG-ER Only STAT Care 04/20/19 17:05 Active IV Insertion STAT Care 04/20/19 17:03 Active CHEST 1 VIEW (PORTABLE) Stat Exams 04/20/19 17:03 Taken AMYLASE Stat Lab 04/20/19 17:00 Completed CBC W DIFF Stat Lab 04/20/19 17:15 Completed CMP Routine Lab 04/20/19 17:15 Completed D-DIMER QUANTITATION Stat Lab 04/20/19 18:25 Completed LIPASE Stat Lab 04/20/19 17:00 Completed TROPONIN Q3H Lab 04/20/19 17:15 Completed TROPONIN Q3H Lab 04/20/19 17:15 Ordered TROPONIN Q3H Lab 04/20/19 20:15 Ordered Medication Summary Discontinued Medications Generic Name Dose Route Start Last Admin Trade Name Freq PRN Reason Stop Dose Admin Aspirin 243 mg 04/20/19 18:03 04/20/19 18:16 Baby Aspirin 81 Mg Chew PO 04/20/19 18:04 243 mg STAT ONE Administration Lab/Rad Data: Laboratory Result Diagrams 04/20/19 17:15 04/20/19 17:15 Laboratory Results 04/20/19 04/20/19 04/20/19 Range/Units 18:25 17:15 17:15 WBC 6.7 (4.0-10.5) K/mm3 RBC 4.63 (4.1-5.4) M/mm3 Hgb 13.9 (12.0-16.0) gm/dl Hct 41.8 (35-47) % MCV 90.3 (78-100) fl MCH 30.0 (26-32) pg MCHC 33.3 (32-36) g/dl RDW 12.9 (11.5-14.0) % Plt Count 210 (150-450) K/mm3 MPV 10.4 H (6-9.5) fl Gran % 45.1 (36.0-66.0) % Eos # (Auto) 0.14 (0-0.5) Absolute Lymphs (auto) 2.93 (1.0-4.6) Absolute Monos (auto) 0.59 (0.0-1.3) Lymphocytes % 43.6 (24.0-44.0) % Monocytes % 8.8 (0.0-12.0) % Eosinophils % 2.1 (0.00-5.0) % Basophils % 0.4 (0.0-0.4) % Absolute Granulocytes 3.03 (1.4-6.9) Basophils # 0.03 (0-0.4) D-Dimer 449 (215-500) ng/mL Sodium 141 (137-145) mmol/L Potassium 3.8 (3.5-5.1) mmol/L Chloride 105 (98-107) mmol/L Carbon Dioxide 27 (22-30) mmol/L Anion Gap 12.8 (5-15) MEQ/L BUN 12 (7-17) mg/dL Creatinine 0.64 (0.52-1.04) mg/dL Estimated GFR > 60.0 ML/MIN Glucose 93 (74-106) mg/dL Calcium 9.7 (8.4-10.2) mg/dL Total Bilirubin 0.30 (0.2-1.3) mg/dL AST 21 (14-36) U/L ALT 17 (0-35) U/L Alkaline Phosphatase 74 (38-126) U/L Troponin I < 0.012 (0.000-0.034) ng/mL Serum Total Protein 6.6 (6.3-8.2) g/dL Albumin 4.0 (3.5-5.0) g/dL Amylase (30-110) U/L Lipase (23-300) U/L 04/20/19 Range/Units 17:00 WBC (4.0-10.5) K/mm3 RBC (4.1-5.4) M/mm3 Hgb (12.0-16.0) gm/dl Hct (35-47) % MCV (78-100) fl MCH (26-32) pg MCHC (32-36) g/dl RDW (11.5-14.0) % Plt Count (150-450) K/mm3 MPV (6-9.5) fl Gran % (36.0-66.0) % Eos # (Auto) (0-0.5) Absolute Lymphs (auto) (1.0-4.6) Absolute Monos (auto) (0.0-1.3) Lymphocytes % (24.0-44.0) % Monocytes % (0.0-12.0) % Eosinophils % (0.00-5.0) % Basophils % (0.0-0.4) % Absolute Granulocytes (1.4-6.9) Basophils # (0-0.4) D-Dimer (215-500) ng/mL Sodium (137-145) mmol/L Potassium (3.5-5.1) mmol/L Chloride (98-107) mmol/L Carbon Dioxide (22-30) mmol/L Anion Gap (5-15) MEQ/L BUN (7-17) mg/dL Creatinine (0.52-1.04) mg/dL Estimated GFR ML/MIN Glucose (74-106) mg/dL Calcium (8.4-10.2) mg/dL Total Bilirubin (0.2-1.3) mg/dL AST (14-36) U/L ALT (0-35) U/L Alkaline Phosphatase (38-126) U/L Troponin I (0.000-0.034) ng/mL Serum Total Protein (6.3-8.2) g/dL Albumin (3.5-5.0) g/dL Amylase 41 (30-110) U/L Lipase 47 (23-300) U/L - Progress Progress: improved Air Movement: fair Progress Note: 04/20/19 19:15 Patient feeling better after aspirin 324 mg orally. I discuss case with Dr. Hernandez. Will place patient on observation, will continue telemetry, continue serial troponins. Write for of morphine as needed for pain continue aspirin daily. - Departure Departure Disposition: Observation Clinical Impression: Chest pain Qualifiers: Chest pain type: unspecified Qualified Code(s): R07.9 - Chest pain, unspecified Condition: Fair Critical Care Time: No Referrals: KAUSHIK CABRERA MD [Primary Care Provider] -
[2019-04-20 18:19] LABS: AMYLASE 41 U/L (30-110); LIPASE 47 U/L (23-300)
[2019-04-20] MEDS ORDERED: Zofran 4 MG/2 ML VIAL IV PRN (21:09)
[2019-04-20] MEDS ORDERED: Nicoderm CQ 21 MG TOP SCH (23:30)
[2019-04-20] MEDS ORDERED: PHENERGAN 25 MG PO PRN (23:40)
[2019-04-20] MEDS ORDERED: REQUIP 2MG TAB PO SCH (23:45)
[2019-04-20] MEDS ORDERED: Flonase NASAL NS SCH (23:45)
[2019-04-20] MEDS ORDERED: Abilify 10 MG PO SCH (23:45)
[2019-04-20] MEDS ORDERED: Voltaren GEL TOP PRN (23:45)
[2019-04-21] MEDS: BUSPAR 5 MG PO SCH ×2 (00:13→09:47)
[2019-04-21] MEDS: Neurontin 400 MG PO SCH ×3 (00:14→14:11)
[2019-04-21] MEDS: SOMA 350 MG PO SCH ×2 (00:14→09:49)
[2019-04-21] MEDS: OXYCODONE-ACETAMINOPHEN 10-325 PO PRN ×3 (00:14→14:12)
[2019-04-21] MEDS: MORPHINE SULFATE 4 MG INJ IV PRN ×2 (02:48→09:58)
[2019-04-21] MEDS ORDERED: PROVENTIL 2.5 MG/3 ML NEB IH PRN (03:09)
[2019-04-21] MEDS ORDERED: PROVENTIL COMMON CANISTER IH PRN (03:10)
[2019-04-21 05:30] LABS: BASOPHIL % 0.4 % (0.0-0.4); Basophil (Absolute #) 0.02 (0-0.4); Eosinophil % 2.4 % (0.00-5.0); Eosinophil (Absolute #) 0.13 (0-0.5); Granulocyte Absolute (ANC) 2.37 (1.4-6.9); Granulocytes % 43.1 % (36.0-66.0); Hematocrit 40.2 % (35-47); Hemoglobin 13.4 gm/dl (12.0-16.0); Lymphocyte (Absolute #) 2.52 (1.0-4.6); Lymphocytes % 45.9 % (24.0-44.0); Mean Cell Volume 90.7 fl (78-100); Mean Corpuscular Hemoglobin 30.2 pg (26-32); Mean Corpuscular Hgb Concent. 33.3 g/dl (32-36); Mean Platelet Volume 10.3 fl (6-9.5); Monocyte (Absolute #) 0.45 (0.0-1.3); Monocytes % 8.2 % (0.0-12.0); Platelet Count 193 K/mm3 (150-450); Red Blood Count 4.43 M/mm3 (4.1-5.4); Red Cell Distribution Width 13.1 % (11.5-14.0); White Blood Count 5.5 K/mm3 (4.0-10.5)
[2019-04-21 05:40] LABS: ALBUMIN 3.5 g/dL (3.5-5.0); ALKALINE PHOSPHATASE 59 U/L (38-126); ANION GAP 10.4 MEQ/L (5-15); BLOOD UREA NITROGEN 15 mg/dL (7-17); CHLORIDE 107 mmol/L (98-107); Calcium 9.3 mg/dL (8.4-10.2); Carbon Dioxide 27 mmol/L (22-30); Creatinine 1 0.74 mg/dL (0.52-1.04); Glucose 107 mg/dL (74-106); Potassium 3.7 mmol/L (3.5-5.1); SGOT/AST 25 U/L (14-36); SGPT/ALT 18 U/L (0-35); SODIUM 141 mmol/L (137-145); Total Protein 6.1 g/dL (6.3-8.2)
[2019-04-21] MEDS ORDERED: ACETAMIN PO PRN (08:04)
[2019-04-21] MEDS ORDERED: BUTALBIT PO PRN (08:04)
[2019-04-21] MEDS ORDERED: CODEINE PO PRN (08:04)
[2019-04-21] MEDS ORDERED: CAFF PO PRN (08:04)
[2019-04-21] MEDS ORDERED: [UNRECOGNIZED DRUG - OTHER] PO PRN (08:04)
[2019-04-21] MEDS ORDERED: OXYMORPHONE HCL 10 MG PO PRN (08:04)
[2019-04-21] MEDS ORDERED: ERENUMAB AOOE IM SCH (08:15)
[2019-04-21] MEDS ORDERED: LASIX 20 MG PO SCH (10:00)
[2019-04-21] MEDS ORDERED: NON-FORMULARY ITEM (Omeprazole 20 Mg [Prilosec 20 Mg] 40 MG) PO SCH (10:00)
[2019-04-21] MEDS ORDERED: NON-FORMULARY ITEM (Phentermine Hcl [Adipex-P] 37.5 MG) PO SCH (10:00)
[2019-04-21] MEDS ORDERED: Protonix 40MG Tablet PO SCH (10:00)
[2019-04-21] MEDS ORDERED: Klor Con 10 MEQ PO SCH (10:00)
[2019-04-21] MEDS ORDERED: Flonase NASAL NS SCH (10:00)
[2019-04-21] MEDS ORDERED: NON-FORMULARY ITEM (Venlafaxine Hcl [Venlafaxine Hcl Er] 150 MG) PO SCH (10:00)
[2019-04-21] MEDS ORDERED: NON-FORMULARY ITEM (Potassium Chloride 20 Meq [Klor-Con 20 Meq] 20 MEQ) PO SCH (10:00)
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
[2019-04-21 13:53] VITALS: BP 124/69; PULSE 62; O2SAT 95
--- NOTE | 2019-04-21 13:58 | PCM.DCORD ---
- Discharge Condition: Good Prescriptions: Continue Aripiprazole [Abilify] 30 mg PO HS Ropinirole HCl 2 mg PO HS Omeprazole 20 MG [Prilosec 20 mg] 40 mg PO DAILY Albuterol Sulfate [Proair Hfa] 2 puffs IH TID PRN PRN PRN Reason: shortness of breath/wheezing Gabapentin [Neurontin] 800 mg PO TID Codeine/Butalbit/Acetamin/Caff [Fioricet-Cod 45-17-553-40 Cap] 1 each PO BID PRN PRN PRN Reason: Migraine Venlafaxine HCl [Venlafaxine HCl ER] 150 mg PO DAILY Potassium Chloride 20 Meq [Klor-Con 20 MEQ] 20 meq PO DAILY Furosemide 20 mg [Lasix 20 mg] 20 mg PO DAILY Carisoprodol 350 mg [Soma 350 mg] 350 mg PO BID Phentermine HCl [Adipex-P] 37.5 mg PO DAILY Oxymorphone HCl 10 mg PO BID PRN PRN PRN Reason: Pain Diclofenac Sodium Gel [Voltaren GEL] 100 gm TP TID PRN PRN PRN Reason: Pain Promethazine HCl 25 mg [Phenergan 25 mg] 12.5 mg PO Q4H PRN PRN PRN Reason: nausea Erenumab-Aooe [Aimovig Autoinjector] 1 dose IM UD Buspirone HCl [Buspar] 10 mg PO BID Tapentadol HCl [Nucynta ER] 250 mg PO BID Fluticasone Propionate [Flonase NASAL] 2 sprays NS BID Instructions: Angina (DC) Follow up with: KAUSHIK CABRERA MD [Primary Care Provider] - 1 Week
[2019-04-21] MEDS ORDERED: Effexor XR 75 MG PO SCH (22:00)
--- NOTE | 2019-04-22 10:21 | XRAY ---
Exam: AP portable chest film from 04/20/2019. Comparison: AP portable chest film from 01/10/2017. Indication: 53-year-old female with chest pain. Findings: The heart size appears normal. There is mild tortuosity of the descending thoracic aorta. The remainder of the vivek and mediastinal structures appears unremarkable. The lungs are well inflated and appear clear. No pulmonary vascular congestion, pneumothorax, or pleural fluid is seen. No acute osseous process is seen. Impression: 1. No acute cardiopulmonary process is seen. The findings are unchanged from 01/10/2017.
== END 2019-04-21 15:25 | disposition home or self-care (01) ==
LOC: ED 16:44 → MED SURG 21:04
PROVIDERS: ADMIT Family Medicine; ATTEND Family Medicine
DX: R07.89 Other chest pain (principal); X50.0XXA Overexertion from strenuous movement or load, initial encounter; G89.29 Other chronic pain; R07.9 Chest pain, unspecified; R06.02 Shortness of breath; R11.0 Nausea; Z79.899 Other long term (current) drug therapy; F17.200 Nicotine dependence, unspecified, uncomplicated
CPT/HCPCS: 36000; 36415; 71045; 80053; 82150; 83690; 84443; 84484; 85025; 85379; 86141; 93005; 93041; 93268; 94762; 99285; G0378; J2270; A9270-GY

== ENCOUNTER 2019-04-29 21:04 | Emergency (ER) | payer MEDICARE ==
--- NOTE | 2019-04-29 21:08 | ERPHSYRPT ---
- History of Present Illness Time Seen by Provider: 04/29/19 21:08 Source: patient, EMS Physician History: 53 y/o white female presents via ems with low back pain. pt has chronic low back pain. pt out of pain meds and has appt with pain specialist tomorrow. Timing/Duration: today Method of Injury: bending, other (no fall or injury) Quality: aching, stabbing Back Pain Location: lumbar spine Back Pain Radiation: buttocks Severity of Pain-Max: moderate Severity of Pain-Current: moderate Associated Symptoms: denies symptoms Previous symptoms: same symptoms as today Allergies/Adverse Reactions: bupropion HCl [From Wellbutrin] Allergy (Mild, Verified 04/30/19 00:26) CVA SYMPTOMS citalopram hydrobromide [From Celexa] Allergy (Mild, Verified 04/30/19 00:26) UNKNOWN REACTION naproxen Allergy (Mild, Verified 04/30/19 00:26) VOMIT BLOOD sumatriptan [From Imitrex] Allergy (Mild, Verified 04/30/19 00:26) Headache ELEVATES BLOOD PRESSURE sumatriptan succinate [From Imitrex] Allergy (Mild, Verified 04/30/19 00:26) Headache ELEVATES BLOOD PRESSURE Home Medications: Albuterol Sulfate [Proair Hfa] 2 puffs IH TID PRN PRN 02/04/15 [History] Aripiprazole [Abilify] 30 mg PO HS 02/04/15 [History] Gabapentin [Neurontin] 800 mg PO TID 02/04/15 [History] Omeprazole 20 MG [Prilosec 20 mg] 40 mg PO DAILY 02/04/15 [History] Ropinirole HCl 2 mg PO HS 02/04/15 [History] Carisoprodol 350 mg [Soma 350 mg] 350 mg PO BID 07/07/17 [History] Codeine/Butalbit/Acetamin/Caff [Fioricet-Cod 52-93-576-40 Cap] 1 each PO BID PRN PRN 07/07/17 [History] Furosemide 20 mg [Lasix 20 mg] 20 mg PO DAILY 07/07/17 [History] Potassium Chloride 20 Meq [Klor-Con 20 MEQ] 20 meq PO DAILY 07/07/17 [History] Venlafaxine HCl [Venlafaxine HCl ER] 150 mg PO DAILY 07/07/17 [History] Phentermine HCl [Adipex-P] 37.5 mg PO DAILY 01/22/18 [History] Buspirone HCl [Buspar] 10 mg PO BID 04/20/19 [History] Diclofenac Sodium Gel [Voltaren GEL] 100 gm TP TID PRN PRN 04/20/19 [ History] Erenumab-Aooe [Aimovig Autoinjector] 1 dose IM UD 04/20/19 [History] Fluticasone Propionate [Flonase NASAL] 2 sprays NS BID 04/20/19 [History] Oxymorphone HCl 10 mg PO BID PRN PRN 04/20/19 [History] Promethazine HCl 25 mg [Phenergan 25 mg] 12.5 mg PO Q4H PRN PRN 04/20/19 [ History] Tapentadol HCl [Nucynta ER] 250 mg PO BID 04/20/19 [History] Hx Tetanus, Diphtheria Vaccination/Date Given: No Hx Influenza Vaccination/Date Given: No Hx Pneumococcal Vaccination/Date Given: No - Review of Systems Constitutional: No Symptoms Eyes: No Symptoms Ears, Nose, & Throat: No Symptoms Respiratory: No Symptoms Cardiac: No Symptoms Abdominal/Gastrointestinal: No Symptoms Genitourinary Symptoms: No Symptoms Musculoskeletal: Back Pain Skin: No Symptoms Neurological: No Symptoms Psychological: No Symptoms Endocrine: No Symptoms Hematologic/Lymphatic: No Symptoms Immunological/Allergic: No Symptoms All Other Systems: Reviewed and Negative - Past Medical History Pertinent Past Medical History: Yes Neurological History: Migraines ENT History: No Pertinent History Cardiac History: Angina, Other Respiratory History: Asthma Endocrine Medical History: No Pertinent History Musculoskeletal History: Arthritis, Degenerative Disk Disease, Fibromyalgia GI Medical History: GERD, Ulcer History: No Pertinent History Psycho-Social History: Anxiety, Depression, Panic Disorder Female Reproductive Disorders: Fibroids Other Medical History: chronic back pain - Past Surgical History Past Surgical History: Yes Neuro Surgical History: No Pertinent History Cardiac: Cardiac Catheterization Respiratory: No Pertinent History Gastrointestinal: No Pertinent History Genitourinary: No Pertinent History Musculoskeletal: Joint Replacement Female Surgical History: Hysterectomy Other Surgical History: D&C, right elbow, tubes in ears, deviated septum - Social History Smoking Status: Current every day smoker How long have you smoked: 40 Exposure to second hand smoke: Yes Alcohol Use: None Drug Use: none Patient Lives Alone: No Significant Family History: no pertinent family hx - Nursing Vital Signs Nursing Vital Signs: Initial Vital Signs Temperature 98.1 F 04/29/19 21:10 Pulse Rate 87 04/29/19 21:10 Respiratory Rate 20 04/29/19 21:10 Blood Pressure 125/72 04/29/19 21:10 O2 Sat by Pulse Oximetry 96 04/29/19 21:10 Pain Scale Pain Intensity [Lower Back] 10 Pain Intensity 8 - Physical Exam General Appearance: moderate distress, alert, anxiety Eye Exam: PERRL/EOMI Ears, Nose, Throat Exam: normal ENT inspection, moist mucous membranes Neck Exam: normal inspection, non-tender, supple, full range of motion Respiratory Exam: airway intact, No chest tenderness, No respiratory distress Gastrointestinal Exam: soft, No normal bowel sounds, No tenderness, No guarding Pelvic Exam: not done Rectal Exam: not done Back Exam: decreased range of motion, muscle spasm, No vertebral tenderness Extremity Exam: normal inspection, normal range of motion, pelvis stable Neurologic Exam: alert, oriented x 3, cooperative, geometry tutor II-XII nml as tested, normal mood/affect Skin Exam: normal color, warm, dry Lymphatic Exam: No adenopathy SpO2 Interpretation: normal O2 Delivery: Room Air - Course Nursing assessment & vital signs reviewed: Yes Ordered Tests: Medication Summary Discontinued Medications Generic Name Dose Route Start Last Admin Trade Name Freq PRN Reason Stop Dose Admin Hydromorphone HCl 1 mg 04/29/19 21:09 04/30/19 00:07 Hydromorphone 1 Mg/Ml Ampule IM 04/29/19 21:10 1 mg STAT ONE Administration Hydromorphone HCl Confirm 04/30/19 00:01 Hydromorphone 1 Mg/Ml Ampule Administered 04/30/19 00:02 Dose 1 mg .ROUTE .STK-MED ONE Methylprednisolone Sodium Succinate 125 mg 04/29/19 21:09 04/30/19 00:09 Solu-Medrol 125 Mg IM 04/29/19 21:10 125 mg STAT ONE Administration Methylprednisolone Sodium Succinate Confirm 04/30/19 00:02 Solu-Medrol 125 Mg Administered 04/30/19 00:03 Dose 125 mg .ROUTE .STK-MED ONE Ondansetron HCl 4 mg 04/29/19 21:09 04/30/19 00:10 Zofran Odt 4 Mg PO 04/29/19 21:10 4 mg STAT ONE Administration Ondansetron HCl Confirm 04/30/19 00:04 Zofran Odt 4 Mg Administered 04/30/19 00:05 Dose 4 mg .ROUTE .STK-MED ONE - Progress Progress: improved, pain not gone completely Counseled pt/family regarding: diagnosis, need for follow-up - Departure Departure Disposition: Home Clinical Impression: Back pain Condition: Stable Critical Care Time: No Referrals: KAUSHIK CABRERA MD [Primary Care Provider] - Additional Instructions: keep your appointment with your pain specialist tomorrow.
[2019-04-29] MEDS ORDERED: ZOFRAN ODT 4 MG PO ONE (21:09)
[2019-04-29] MEDS ORDERED: Hydromorphone 1 mg/ml Ampule IM ONE (21:09)
[2019-04-29] MEDS ORDERED: solu-MEDROL 125 MG IM ONE (21:09)
[2019-04-30] MEDS ORDERED: Hydromorphone 1 mg/ml Ampule ONE (00:01)
[2019-04-30] MEDS ORDERED: solu-MEDROL 125 MG ONE (00:02)
[2019-04-30] MEDS ORDERED: ZOFRAN ODT 4 MG ONE (00:04)
[2019-04-30] MEDS ORDERED: NORCO 5/325 MG PO ONE (01:05)
[2019-04-30] MEDS ORDERED: SOMA 350 MG PO ONE (01:06)
[2019-04-30] MEDS ORDERED: NORCO 5/325 MG ONE (01:12)
[2019-04-30 01:34] VITALS: BP 126/71; PULSE 66; O2SAT 95
== END 2019-04-30 01:46 | disposition home or self-care (01) ==
LOC: ED 21:04
DX: G89.29 Other chronic pain (principal); Z79.899 Other long term (current) drug therapy
CPT/HCPCS: 96372; 99284; J1170; J2930; Q0162; A9270-GY

== ENCOUNTER 2019-05-16 16:36 | Emergency (ER) | payer MEDICARE ==
[2019-05-16] MEDS ORDERED: PERCOCET TABLET 5/325MG PO STA (17:22)
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
[2019-05-16] MEDS ORDERED: PERCOCET TABLET 5/325MG ONE (17:32)
[2019-05-16 18:45] VITALS: BP 124/80; PULSE 82; O2SAT 98
== END 2019-05-16 18:44 | disposition home or self-care (01) ==
LOC: ED 16:36
DX: M54.5 Low back pain (principal); G89.29 Other chronic pain; Z79.899 Other long term (current) drug therapy; K21.9 Gastro-esophageal reflux disease without esophagitis; M79.7 Fibromyalgia; M19.90 Unspecified osteoarthritis, unspecified site; F41.9 Anxiety disorder, unspecified
CPT/HCPCS: 99283; A9270-GY

== ENCOUNTER 2019-09-17 13:24 | Emergency (ER) | payer MEDICARE ==
[2019-09-17] MEDS ORDERED: Sodium Chloride 0.9% 1000 ML 1,000 ML IV STA (13:30)
--- NOTE | 2019-09-17 13:34 | ERPHSYRPT ---
- History of Present Illness Time Seen by Provider: 09/17/19 13:28 Source: patient, family, EMS, old records Exam Limitations: no limitations Physician History: PT IS A 54 Y/O WOMAN PRESENTS VIA EMS C/O "FLU" DESCRIBED COUGH, FEVER, FATIGUE. PT REPORTS MYALGIAS, NAUSEA NO VOMITING, COUGH NON PRODCUCTIVE, RLQ SHARP NON RADIATING ABD DISCOMFORT WITHOUT RELIEVING OR EXAC FACTORS 04/10. NO CP /SOB/V/DYSURIA/HEMATURIA/VAG BLEED OR DC. NO DIARRHEA. NO SICK CONTACTS. RAN OUT OF HER PERCOCET 1 WEEK AGO NO RHINORRHEA. STATES NEIGHBOR CALLED BC SHE WAS DECREASE ACTIVITY/LETHARGIC AND HAS BEEN IN BED FOR 1-2 DAYS. PT STATES SHE IS FREEZING. NO SI/AH/HI PMHX CHRONIC PAIN, MIGRAINES PSHX ORTHO MEDS REVIEWED ALL LIST REVIEWED +TOB +ETOH OCC DENIES ILLICITS UNEMPLOYED ON DISABILITY Allergies/Adverse Reactions: bupropion HCl [From Wellbutrin] Allergy (Mild, Verified 09/17/19 13:27) CVA SYMPTOMS citalopram hydrobromide [From Celexa] Allergy (Mild, Verified 09/17/19 13:27) UNKNOWN REACTION naproxen Allergy (Mild, Verified 09/17/19 13:27) VOMIT BLOOD sumatriptan [From Imitrex] Allergy (Mild, Verified 09/17/19 13:27) Headache ELEVATES BLOOD PRESSURE sumatriptan succinate [From Imitrex] Allergy (Mild, Verified 09/17/19 13:27) Headache ELEVATES BLOOD PRESSURE Home Medications: Albuterol Sulfate [Proair Hfa] 2 puffs IH TID PRN PRN 02/04/15 [History] Aripiprazole [Abilify] 30 mg PO HS 02/04/15 [History] Gabapentin [Neurontin] 800 mg PO TID 02/04/15 [History] Omeprazole 20 MG [Prilosec 20 mg] 40 mg PO DAILY 02/04/15 [History] Ropinirole HCl 2 mg PO HS 02/04/15 [History] Carisoprodol 350 mg [Soma 350 mg] 350 mg PO BID 07/07/17 [History] Codeine/Butalbit/Acetamin/Caff [Fioricet-Cod [id number] Cap] 1 each PO BID PRN PRN 07/07/17 [History] Furosemide 20 mg [Lasix 20 mg] 20 mg PO DAILY 07/07/17 [History] Potassium Chloride 20 Meq [Klor-Con 20 MEQ] 20 meq PO DAILY 07/07/17 [History] Venlafaxine HCl [Venlafaxine HCl ER] 150 mg PO DAILY 07/07/17 [History] Phentermine HCl [Adipex-P] 37.5 mg PO DAILY 01/22/18 [History] Buspirone HCl [Buspar] 10 mg PO BID 04/20/19 [History] Diclofenac Sodium Gel [Voltaren GEL] 100 gm TP TID PRN PRN 04/20/19 [ History] Erenumab-Aooe [Aimovig Autoinjector] 1 dose IM UD 04/20/19 [History] Fluticasone Propionate [Flonase NASAL] 2 sprays NS BID 04/20/19 [History] Oxymorphone HCl 10 mg PO BID PRN PRN 04/20/19 [History] Promethazine HCl 25 mg [Phenergan 25 mg] 12.5 mg PO Q4H PRN PRN 04/20/19 [ History] Tapentadol HCl [Nucynta ER] 250 mg PO BID 04/20/19 [History] Hx Tetanus, Diphtheria Vaccination/Date Given: No Hx Influenza Vaccination/Date Given: No Hx Pneumococcal Vaccination/Date Given: No - Review of Systems Constitutional: No Symptoms, Fever, Chills, Fatigue, Lethargy, Malaise, No Night Sweats, No Weakness, No Weight Loss Eyes: No Symptoms, No Discharge, No Eye Pain, No Eye Redness, No Itchy, No Photophobia, No Tearing, No Vision Changes, No Double Vision, No Foreign Body Sensation Ears, Nose, & Throat: No Symptoms, No Ear Pain, No Ear Discharge, No Hearing Changes, No Tinnitus, No Nose Congestion, No Nose Discharge, No Epistaxis, No Mouth Pain, No Mouth Swelling, No Throat Pain, No Throat Swelling, No Hoarse, No Painful Swallowing, No Stridor Respiratory: No Symptoms, Cough, No Cyanosis, No Dyspnea, No Dyspnea on Exertion (SCHWARTZ), No Stridor, No Wheezing Cardiac: No Symptoms, No Chest Pain, No Edema, No Palpitations, No Syncope, No Orthopnea Abdominal/Gastrointestinal: No Symptoms, Abdominal Pain, No Nausea, No Vomiting , No Diarrhea, No Constipation, No Hematemesis, No Hematochezia, No Melena, No Dysphagia, No Appetite Changes Genitourinary Symptoms: No Symptoms, No Dysuria, No Frequency, No Hematuria, No Hesitancy, No Incontinence, No Urgency, No Urinary Retention, No Flank Pain, No Menorrhagia, No , No Vaginal Bleeding, No Vaginal Discharge Musculoskeletal: No Symptoms, No Arthralgias, No Back Pain, No Neck Pain, No Deformity, No Fall, No Injury, No Joint Redness, No Joint Pain, No Joint Swelling, No Myalgias Skin: No Symptoms, No Cellulitis, No Decubiti, No Induration, No Pruritis, No Rash, No Skin Lesions, No Dryness Neurological: No Symptoms, No Dizziness, No Focal Weakness, No Gait Changes, No Headache, No Irritability, No Lethargy, No Paralysis, No Parasthesia, No Seizure , No Sensory Changes, No Speech Changes, No Tics, No Tremors, No Vertigo Psychological: No Symptoms, No Alcohol Abuse, No Drug Abuse, No Anxiety, No Depression, No Suicidal Ideations, No Homicidal Ideations, No Emotional Lability , No Hallucinations, No Memory Loss, No Mood Changes Endocrine: No Symptoms, No Polyuria, No Polydipsia, No Hair Changes, No Cold Intolerance, No Excessive Sweating, No Goiter Hematologic/Lymphatic: No Symptoms, No Anemia, No Blood Clots, No Easy Bleeding , No Gum Bleeding, No Easy Bruising, No Adenopathy Immunological/Allergic: No Symptoms All Other Systems: Reviewed and Negative - Past Medical History Pertinent Past Medical History: Yes Neurological History: Migraines ENT History: No Pertinent History Cardiac History: Angina, Other Respiratory History: Asthma Endocrine Medical History: No Pertinent History Musculoskeletal History: Arthritis, Degenerative Disk Disease, Fibromyalgia GI Medical History: GERD, Ulcer History: No Pertinent History Psycho-Social History: Anxiety, Depression, Panic Disorder Female Reproductive Disorders: Fibroids Other Medical History: chronic back pain - Past Surgical History Past Surgical History: Yes Neuro Surgical History: No Pertinent History Cardiac: Cardiac Catheterization Respiratory: No Pertinent History Gastrointestinal: No Pertinent History Genitourinary: No Pertinent History Musculoskeletal: Joint Replacement Female Surgical History: Hysterectomy Other Surgical History: D&C, right elbow, tubes in ears, deviated septum - Social History Smoking Status: Current every day smoker How long have you smoked: 40 Exposure to second hand smoke: No Alcohol Use: None Drug Use: none Patient Lives Alone: No Significant Family History: no pertinent family hx - Nursing Vital Signs Nursing Vital Signs: Initial Vital Signs Temperature 98.5 F 09/17/19 13:28 Pulse Rate 81 09/17/19 13:28 Respiratory Rate 18 09/17/19 13:28 Blood Pressure 124/81 09/17/19 13:28 O2 Sat by Pulse Oximetry 100 09/17/19 13:28 Pain Scale Pain Intensity 6 - Physical Exam General Appearance: no apparent distress, mild distress, alert, lethargy Eye Exam: PERRL/EOMI, eyes nml inspection, other (fundi normal sari), No scleral icterus, No pale conjunctivae, No photophobia, No EOM palsy/anisocoria Ears, Nose, Throat Exam: normal ENT inspection, TMs normal, pharynx normal, dry mucous membranes, TM abnormal (L), other (uvula midline, floor of mouth soft), No moist mucous membranes, No TM abnormal (R), No pharyngeal erythema, No tonsillar exudate Neck Exam: normal inspection, non-tender, supple, full range of motion, No meningismus, No mass, No Brudzinski, No Kernig's, No carotid bruit, No JVD, No limited range of motion, No lymphadenopathy, No midline tenderness, No thyromegaly Respiratory Exam: normal breath sounds, lungs clear, airway intact, No chest tenderness, No respiratory distress, No diminished breath sounds, No accessory muscle use, No prolonged expirations, No crackles/rales, No rhonchi, No wheezing , No stridor, No pleural rub Cardiovascular Exam: regular rate/rhythm, normal heart sounds, normal peripheral pulses, capillary refill <2 sec, No murmur, No friction rub, No gallop, No tachycardia, No bradycardia, No irregular, No capillary refill 2-3 sec, No capillary refill >3 sec, No edema, No pulse deficit Gastrointestinal/Abdomen Exam: soft, normal bowel sounds, tenderness (rlq NO GUARD OR REBOUND), No distention, No mass, No guarding, No ecchymosis, No pulsatile mass, No rebound, No hernia, No hepatomegaly, No organomegaly, No splenomegaly, No bruit Pelvic Exam: deferred, normal external exam Rectal Exam: deferred Back Exam: normal inspection, normal range of motion, other (neg slr sari, no sacral anesthesia, dtr 2/4 sari patella), No CVA tenderness, No vertebral tenderness, No rash, No decreased range of motion, No muscle spasm, No point tenderness Extremity Exam: normal inspection, normal range of motion, pelvis stable, No amputations, No contusions, No calf tenderness, No deformities, No lacerations, No parasthesia, No paralysis, No inflammation, No joint swelling, No limited range of motion, No pedal edema, No swelling, No tenderness Neurologic Exam: alert, oriented x 3, cooperative, battery hand II-XII nml as tested, normal mood/affect, nml cerebellar function, nml station & gait, sensation nml, No motor deficits, No sensory deficit, No disoriented, No confusion, No agitation, No uncooperative, No intoxicated appearance, No depressed mood/affect , No motor weakness, No facial droop, No slurred speech, No aphasia, No dysarthria, No abnormal gait, No abnormal cerebellar tests, No abnormal battery hand II- XII, No EOM palsy Skin Exam: normal color, warm, dry, No rash, No petechiae, No jaundice, No abrasion, No cyanosis, No diaphoresis, No decubitus, No embolic lesions, No ecchymosis, No jaundice, No laceration, No mottled, No pale Lymphatic Exam: No adenopathy SpO2 Interpretation: normal O2 Delivery: Room Air - Course Nursing assessment & vital signs reviewed: Yes Ordered Tests: Active Orders 24 hr Category Date Time Status IV Insertion STAT Care 09/17/19 13:30 Active Rectal Temperature STAT Care 09/17/19 13:30 Active ABDOMEN AND PELVIS W CONTRAST [CT] Stat Exams 09/17/19 13:31 Completed CHEST 2 VIEWS (PA AND LAT) Stat Exams 09/17/19 13:31 Completed CBC W DIFF Stat Lab 09/17/19 14:00 Completed CMP Stat Lab 09/17/19 14:00 Completed Lactic Acid Stat Lab 09/17/19 14:25 Completed UA W/RFX UR CULTURE Stat Lab 09/17/19 14:00 Completed Medication Summary Discontinued Medications Generic Name Dose Route Start Last Admin Trade Name Sheridan PRN Reason Stop Dose Admin Sodium Chloride 1,000 mls @ 999 mls/hr 09/17/19 13:30 09/17/19 14:58 Sodium Chloride 0.9% 1000 Ml IV 09/17/19 14:30 Infused .Q1H1M STA Infusion Sodium Chloride Confirm 09/17/19 13:53 Sodium Chloride 0.9% 1000 Ml Administered 09/17/19 13:54 Dose 1,000 mls @ ud .ROUTE .STK-MED ONE Lab/Rad Data: Laboratory Result Diagrams 09/17/19 14:00 09/17/19 14:00 Laboratory Results 09/17/19 09/17/19 09/17/19 Range/Units 14:25 14:00 14:00 WBC (4.0-10.5) K/mm3 RBC (4.1-5.4) M/mm3 Hgb (12.0-16.0) gm/dl Hct (35-47) % MCV (78-100) fl MCH (26-32) pg MCHC (32-36) g/dl RDW (11.5-14.0) % Plt Count (150-450) K/mm3 MPV (6-9.5) fl Gran % (36.0-66.0) % Eos # (Auto) (0-0.5) Absolute Lymphs (auto) (1.0-4.6) Absolute Monos (auto) (0.0-1.3) Lymphocytes % (24.0-44.0) % Monocytes % (0.0-12.0) % Eosinophils % (0.00-5.0) % Basophils % (0.0-0.4) % Absolute Granulocytes (1.4-6.9) Basophils # (0-0.4) Sodium (137-145) mmol/L Potassium (3.5-5.1) mmol/L Chloride (98-107) mmol/L Carbon Dioxide (22-30) mmol/L Anion Gap (5-15) MEQ/L BUN (7-17) mg/dL Creatinine (0.52-1.04) mg/dL Estimated GFR ML/MIN Glucose (74-106) mg/dL Lactic Acid 1.6 (0.4-2.0) Calcium (8.4-10.2) mg/dL Total Bilirubin (0.2-1.3) mg/dL AST (14-36) U/L ALT (0-35) U/L Alkaline Phosphatase (38-126) U/L Serum Total Protein (6.3-8.2) g/dL Albumin (3.5-5.0) g/dL Urine Color YELLOW (YELLOW) Urine Appearance SLIGHTLY CLOUDY (CLEAR) Urine pH 6.0 (5-6) Ur Specific [place] 1.018 (1.005-1.025) Urine Protein NEGATIVE (Negative) Urine Ketones SMALL (NEGATIVE) Urine Blood NEGATIVE (0-5) Gall[place]/ul Urine Nitrite NEGATIVE (NEGATIVE) Urine Bilirubin NEGATIVE (NEGATIVE) Urine Urobilinogen 2 (0-1) mg/dL Ur Leukocyte Esterase NEGATIVE (NEGATIVE) Urine WBC (Auto) 6-10 (0-5) /HPF Urine RBC (Auto) 3-5 (0-2) /HPF U Epithel Cells (Auto) FEW (FEW) /HPF Urine Bacteria (Auto) RARE (NEGATIVE) /HPF Urine Mucus (Auto) SLIGHT (NEGATIVE) /HPF Urine Culture Reflexed NO (NO) Urine Glucose NEGATIVE (NEGATIVE) mg/dL Influenza Type A Ag NEGATIVE (NEGATIVE) Influenza Type B Ag NEGATIVE (NEGATIVE) RSV (PCR) NEGATIVE (Negative) 09/17/19 09/17/19 Range/Units 14:00 14:00 WBC 6.3 (4.0-10.5) K/mm3 RBC 4.68 (4.1-5.4) M/mm3 Hgb 14.4 (12.0-16.0) gm/dl Hct 43.1 (35-47) % MCV 92.1 (78-100) fl MCH 30.8 (26-32) pg MCHC 33.4 (32-36) g/dl RDW 13.2 (11.5-14.0) % Plt Count 197 (150-450) K/mm3 MPV 10.2 H (6-9.5) fl Gran % 57.0 (36.0-66.0) % Eos # (Auto) 0.11 (0-0.5) Absolute Lymphs (auto) 1.97 (1.0-4.6) Absolute Monos (auto) 0.62 (0.0-1.3) Lymphocytes % 31.2 (24.0-44.0) % Monocytes % 9.8 (0.0-12.0) % Eosinophils % 1.7 (0.00-5.0) % Basophils % 0.3 (0.0-0.4) % Absolute Granulocytes 3.59 (1.4-6.9) Basophils # 0.02 (0-0.4) Sodium 142 (137-145) mmol/L Potassium 3.7 (3.5-5.1) mmol/L Chloride 110 H (98-107) mmol/L Carbon Dioxide 24 (22-30) mmol/L Anion Gap 12.6 (5-15) MEQ/L BUN 8 (7-17) mg/dL Creatinine 0.55 (0.52-1.04) mg/dL Estimated GFR > 60.0 ML/MIN Glucose 106 (74-106) mg/dL Lactic Acid (0.4-2.0) Calcium 9.4 (8.4-10.2) mg/dL Total Bilirubin 0.40 (0.2-1.3) mg/dL AST 21 (14-36) U/L ALT 18 (0-35) U/L Alkaline Phosphatase 70 (38-126) U/L Serum Total Protein 7.0 (6.3-8.2) g/dL Albumin 4.1 (3.5-5.0) g/dL Urine Color (YELLOW) Urine Appearance (CLEAR) Urine pH (5-6) Ur Specific [place] (1.005-1.025) Urine Protein (Negative) Urine Ketones (NEGATIVE) Urine Blood (0-5) Gallito/ul Urine Nitrite (NEGATIVE) Urine Bilirubin (NEGATIVE) Urine Urobilinogen (0-1) mg/dL Ur Leukocyte Esterase (NEGATIVE) Urine WBC (Auto) (0-5) /HPF Urine RBC (Auto) (0-2) /HPF U Epithel Cells (Auto) (FEW) /HPF Urine Bacteria (Auto) (NEGATIVE) /HPF Urine Mucus (Auto) (NEGATIVE) /HPF Urine Culture Reflexed (NO) Urine Glucose (NEGATIVE) mg/dL Influenza Type A Ag (NEGATIVE) Influenza Type B Ag (NEGATIVE) RSV (PCR) (Negative) - Progress Progress: improved Progress Note: 09/17/19 15:53 PT STATES SHE IS FREEZING. NO RIGORS RECTAL TEMP NORMAL NEG UA, NO LEUKOCYTOSIS NEG ER PRELIM CXR NAD NEG RESP PANEL NO SORE THROAT NO DIARRHEA NORMAL LABS S/NT/ND/NO HSM + BS X 4 ? OPIATE WITHDRAWL? AWAIT CT RESULT 09/17/19 16:30 CT A/P NEW MILD FLUID DISTENDED SMALL BOWEL LOOPS WITH FLUID LEVELING AND MILD WAL THICKENING FAVORING ENTERITIS. NORMAL APPENDIX OTHERWISE NAD. 09/17/19 16:34 TOLERATES PO FLUIDS AMBULATES AT BASELINE WOULD LIKE TO TRY TO GO HOME ALL QUESTIONS ANSWERED TO HER SATISFACTION Counseled pt/family regarding: drug and/or alcohol abuse, lab results, diagnosis , need for follow-up, rad results, smoking cessation - Departure Departure Disposition: Home Clinical Impression: Chronic pain, Viral illness, Encounter for medical screening examination Condition: Good Critical Care Time: No Referrals: KAUSHIK CABRERA MD [Primary Care Provider] - Instructions: Viral Gastroenteritis Additional Instructions: TO ER IF INTRACTABLE VOMITING, FEVER OVER 102, BLACK OR BLOODY STOOL, MORE THAN 10 STOOLS DAILY STAY WELL HYDRATED TYLENOL FOR DISCOMFORT PLEASE FOLLOW UP WITH YOUR DOCTOR IN 2-3 DAYS FOR RE-EVALUATION AND DEFINITIVE CARE
[2019-09-17] MEDS ORDERED: Sodium Chloride 0.9% 1000 ML 1,000 ML ONE (13:53)
[2019-09-17 14:06] LABS: Appearance SLIGHTLY CLOUDY (CLEAR); Bilirubin NEGATIVE (NEGATIVE); Blood NEGATIVE Ery/ul (0-5); Glucose NEGATIVE (NEGATIVE); Ketones SMALL (NEGATIVE); Leukocyte Esterase NEGATIVE (NEGATIVE); Mucus SLIGHT /HPF (NEGATIVE); Nitrite NEGATIVE (NEGATIVE); Protein,Urine Dip NEGATIVE (Negative); Specific Gravity 1.018 (1.005-1.025); Urobilinogen 2 mg/dL (0-1)
[2019-09-17 14:08] LABS: Bacteria RARE /HPF (NEGATIVE); Epithelial Cells FEW /HPF (FEW)
[2019-09-17 14:11] LABS: Absolute Neutrophil Ct (ANC) 3.59 (1.4-6.9); BASOPHIL % 0.3 % (0.0-0.4); Basophil (Absolute #) 0.02 (0-0.4); Eosinophil % 1.7 % (0.00-5.0); Eosinophil (Absolute #) 0.11 (0-0.5); Hematocrit 43.1 % (35-47); Hemoglobin 14.4 gm/dl (12.0-16.0); Lymphocyte (Absolute #) 1.97 (1.0-4.6); Lymphocytes % 31.2 % (24.0-44.0); Mean Cell Volume 92.1 fl (78-100); Mean Corpuscular Hemoglobin 30.8 pg (26-32); Mean Corpuscular Hgb Concent. 33.4 g/dl (32-36); Mean Platelet Volume 10.2 fl (6-9.5); Monocyte (Absolute #) 0.62 (0.0-1.3); Monocytes % 9.8 % (0.0-12.0); Platelet Count 197 K/mm3 (150-450); Red Blood Count 4.68 M/mm3 (4.1-5.4); Red Cell Distribution Width 13.2 % (11.5-14.0); White Blood Count 6.3 K/mm3 (4.0-10.5)
[2019-09-17 14:25] LABS: ALBUMIN 4.1 g/dL (3.5-5.0); ALKALINE PHOSPHATASE 70 U/L (38-126); ANION GAP 12.6 MEQ/L (5-15); BLOOD UREA NITROGEN 8 mg/dL (7-17); CHLORIDE 110 mmol/L (98-107); Calcium 9.4 mg/dL (8.4-10.2); Carbon Dioxide 24 mmol/L (22-30); Creatinine 1 0.55 mg/dL (0.52-1.04); Glucose 106 mg/dL (74-106); Potassium 3.7 mmol/L (3.5-5.1); SGOT/AST 21 U/L (14-36); SGPT/ALT 18 U/L (0-35); SODIUM 142 mmol/L (137-145)
[2019-09-17 14:37] LABS: INFLUENZA A NEGATIVE (NEGATIVE); INFLUENZA B NEGATIVE (NEGATIVE); RESPIRATORY SYNCTIAL VIRUS NEGATIVE (Negative)
--- NOTE | 2019-09-17 16:23 | XRAY ---
Indication: Fever and cough. No appetite. Right lower quadrant pain. Comparison: April 20, 2019. PA/lateral chest demonstrates normal heart and lungs. Bony thorax intact. No new/acute findings.
--- NOTE | 2019-09-17 16:26 | XRAY ---
Indication: Fever, cough, no appetite, and right lower quadrant pain. Multiple contiguous axial images obtained through the abdomen and pelvis using 80 cc of Isovue-370 contrast only. Comparison: September 25, 2012. Lung bases demonstrates minimal bilateral dependent atelectasis with stable tiny bibasilar calcified granulomas. No infiltrate or effusion. Heart is not enlarged. Noncontrasted stomach and bowel loops appear nonobstructed. Mild fluid distended small bowel loops up to 3 cm with some fluid leveling and wall thickening/enhancement bilaterally favoring enteritis. Normal appendix. Again mild scattered colonic diverticulosis without diverticulitis. No free fluid/air. Both kidneys enhance and excrete with new 1 cm left mid renal cortical cyst. Again previous hysterectomy. Remaining liver, gallbladder, pancreas, spleen, adrenal glands, kidneys, ureters, and bladder appear unremarkable. Aorta is normal in course and caliber. No AAA or pathologic retroperitoneal lymphadenopathy. Osseous structures intact with mild degenerative changes throughout the lumbar spine. No ventral or inguinal hernias. Impression: 1. New mild fluid distended small bowel loops with fluid leveling and mild wall thickening/enhancement favoring enteritis. 2. New left renal cortical cyst. 3. Stable colonic diverticulosis and bibasilar pulmonary calcified granulomas. 4. Remaining CT abdomen/pelvis with contrast exam is negative. CTDI 19.51
[2019-09-17 16:37] VITALS: BP 163/90; PULSE 88; O2SAT 98
== END 2019-09-17 16:52 | disposition home or self-care (01) ==
LOC: ED 13:24
DX: G89.29 Other chronic pain (principal); B34.9 Viral infection, unspecified; Z13.9 Encounter for screening, unspecified
CPT/HCPCS: 36415; 71046; 74177; 80053; 81001; 83605; 85025; 87631; 96360; 99284

== ENCOUNTER 2019-09-28 16:35 | Emergency (ER) | payer MEDICARE ==
--- NOTE | 2019-09-28 16:46 | ERPHSYRPT ---
- History of Present Illness Time Seen by Provider: 09/28/19 16:40 Source: patient Exam Limitations: no limitations Physician History: Patient has not fell well for over two weeks. She was seen two weeks ago in the emergency department and treated for sinusitis. She was seen last week by her physician and placed on other antibiotics for her sinusitis. Patient has not felt any better and feels overall achy. Occurred: other (2 weeks ago) Reason for Fall: unknown (patient did not fall, she simply has generalized aches and generalized weakness) Injuries/Pain Location: no injury Loss of Consciousness: no loss of consciousness Quality: aching Severity of Pain-Max: moderate Severity of Pain-Current: moderate Modifying Factors: Improves With: nothing Associated Symptoms (Fall): lightheadedness, No abdominal pain, No back pain, No confusion, No chest pain, No dizziness, No extremity injury, No headache, No muscle spasms, No nausea, No neck pain, No ringing in ears, No seizures, No shortness of breath, No slurred speech, No trouble walking, No vomiting, No vision changes Allergies/Adverse Reactions: bupropion HCl [From Wellbutrin] Allergy (Mild, Verified 09/28/19 16:52) CVA SYMPTOMS citalopram hydrobromide [From Celexa] Allergy (Mild, Verified 09/28/19 16:52) UNKNOWN REACTION naproxen Allergy (Mild, Verified 09/28/19 16:52) VOMIT BLOOD sumatriptan [From Imitrex] Allergy (Mild, Verified 09/28/19 16:52) Headache ELEVATES BLOOD PRESSURE sumatriptan succinate [From Imitrex] Allergy (Mild, Verified 09/28/19 16:52) Headache ELEVATES BLOOD PRESSURE Home Medications: Albuterol Sulfate [Proair Hfa] 2 puffs IH TID PRN PRN 02/04/15 [History] Aripiprazole [Abilify] 30 mg PO HS 02/04/15 [History] Gabapentin [Neurontin] 800 mg PO TID 02/04/15 [History] Omeprazole 20 MG [Prilosec 20 mg] 40 mg PO DAILY 02/04/15 [History] Ropinirole HCl 2 mg PO HS 02/04/15 [History] Carisoprodol 350 mg [Soma 350 mg] 350 mg PO BID 07/07/17 [History] Codeine/Butalbit/Acetamin/Caff [Fioricet-Cod [id number] Cap] 1 each PO BID PRN PRN 07/07/17 [History] Furosemide 20 mg [Lasix 20 mg] 20 mg PO DAILY 07/07/17 [History] Potassium Chloride 20 Meq [Klor-Con 20 MEQ] 20 meq PO DAILY 07/07/17 [History] Venlafaxine HCl [Venlafaxine HCl ER] 150 mg PO DAILY 07/07/17 [History] Phentermine HCl [Adipex-P] 37.5 mg PO DAILY 01/22/18 [History] Diclofenac Sodium Gel [Voltaren GEL] 100 gm TP TID PRN PRN 04/20/19 [ History] Erenumab-Aooe [Aimovig Autoinjector] 1 dose IM UD 04/20/19 [History] Fluticasone Propionate [Flonase NASAL] 2 sprays NS BID 04/20/19 [History] Promethazine HCl 25 mg [Phenergan 25 mg] 12.5 mg PO Q4H PRN PRN 04/20/19 [ History] Tapentadol HCl [Nucynta ER] 250 mg PO BID 04/20/19 [History] Hx Tetanus, Diphtheria Vaccination/Date Given: No Hx Influenza Vaccination/Date Given: No Hx Pneumococcal Vaccination/Date Given: No - Review of Systems Constitutional: Fever, Chills, Fatigue, Lethargy Eyes: No Discharge, No Eye Pain Ears, Nose, & Throat: No Ear Pain, No Nose Congestion, No Nose Discharge, No Throat Pain, No Throat Swelling, No Hoarse, No Painful Swallowing, No Stridor Respiratory: Cough, No Dyspnea Cardiac: No Chest Pain, No Palpitations Abdominal/Gastrointestinal: No Abdominal Pain, No Nausea, No Vomiting Genitourinary Symptoms: No Dysuria, No Frequency, No Hematuria, No Flank Pain Musculoskeletal: Myalgias, No Arthralgias, No Back Pain, No Neck Pain Skin: No Pruritis, No Rash Neurological: No Focal Weakness, No Gait Changes, No Headache, No Lethargy, No Parasthesia, No Tremors Psychological: No Anxiety Endocrine: No Polydipsia, No Excessive Sweating Hematologic/Lymphatic: No Easy Bleeding, No Easy Bruising All Other Systems: Reviewed and Negative - Past Medical History Pertinent Past Medical History: Yes Neurological History: Migraines ENT History: No Pertinent History Cardiac History: Angina, Other Respiratory History: Asthma Endocrine Medical History: No Pertinent History Musculoskeletal History: Arthritis, Degenerative Disk Disease, Fibromyalgia GI Medical History: GERD, Ulcer History: No Pertinent History Psycho-Social History: Anxiety, Depression, Panic Disorder Female Reproductive Disorders: Fibroids Other Medical History: chronic back pain - Past Surgical History Past Surgical History: Yes Neuro Surgical History: No Pertinent History Cardiac: Cardiac Catheterization Respiratory: No Pertinent History Gastrointestinal: No Pertinent History Genitourinary: No Pertinent History Musculoskeletal: Joint Replacement Female Surgical History: Hysterectomy Other Surgical History: D&C, right elbow, tubes in ears, deviated septum - Social History Smoking Status: Current every day smoker How long have you smoked: 40 Exposure to second hand smoke: No Alcohol Use: None Drug Use: none Patient Lives Alone: No Significant Family History: no pertinent family hx - Nursing Vital Signs Nursing Vital Signs: Initial Vital Signs Temperature 98.3 F 09/28/19 16:43 Pulse Rate 87 09/28/19 16:43 Respiratory Rate 16 09/28/19 16:43 Blood Pressure 140/86 09/28/19 16:43 O2 Sat by Pulse Oximetry 98 09/28/19 16:43 Pain Scale Pain Intensity 3 - Charlie Coma Score Best Eye Response ([place]): (4) open spontaneously Best Verbal Response ([place]): (5) oriented Best Motor Response ([place]): (6) obeys commands Charlie Total: 15 - Physical Exam General Appearance: no apparent distress, alert Head Injury: no evidence of injury, No active bleeding, No Henley's Sign, No contusions, No ecchymosis, No tenderness Eye Exam: PERRL/EOMI, eyes nml inspection, No scleral icterus, No photophobia ENT Exam: airway nml, nml ext.inspection, hearing grossly normal, No evidence of ENT injury, No dental injury, No clear fluid (ears), No clear fluid (nose), No midface instability, No clotted nasal blood, No malocclusion, No oral injury Neck Exam: supple, trachea midline, full range of motion, normal alignment, normal inspection, No focal neuro deficit, No limited range of motion, No muscle spasm, No paraspinous muscle tender, No pain on movement of neck, No stiff neck, No tenderness, No tender lateral, No mid-line tenderness, No meningismus, No Brudzinski, No Kernig's, No lymphadenopathy Respiratory/Chest Exam: normal breath sounds, No chest tenderness, No respiratory distress, No ecchymosis, No crepitus, No decreased breath sounds, No rales, No rhonchi, No wheezing, No accessory muscle use, No rib tenderness Cardiovascular Exam: normal heart sounds, regular rate/rhythm, normal peripheral pulses, No murmur, No edema Gastrointestinal Exam: soft, normal bowel sounds, No tenderness, No distention, No mass, No guarding, No rebound Back Exam: normal inspection, normal range of motion, No CVA tenderness, No vertebral tenderness, No rash Extremity Exam: normal inspection, normal range of motion, capillary refill <3 sec, pelvis stable, No lily's sign, No bony point tenderness, No hip tenderness Peripheral Pulses: dorsalis-pedis (R): 2+, dorsalis-pedis (L): 2+ Neurologic Exam: alert, oriented x 3, cooperative, 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 tested, normal mood/affect, sensation nml, No motor deficits, No sensory deficit, No agitation Skin Exam: normal color, warm, dry, No rash, No petechiae, No jaundice, No cyanosis SpO2 Interpretation: normal O2 Delivery: Room Air - Course Nursing assessment & vital signs reviewed: Yes EKG Interpreted by Me: RATE (74), Sinus Rhythm, NORMAL AXIS, NORMAL INTERVALS, NORMAL QRS, NORMAL ST-T, Other (negative previous EKG for comparison) - Radiology Exams Chest X-ray Interpretation: Interpreted by me, Reviewed by me, No Fracture, No Pneumonia, No Pneumothorax, Nml Heart Size, No Infiltrates, Nml Mediastinum - CT Exams Other CT Interpretation: Other (Sinuses without Contrast: Per Radiologist Interpretation: mild mucosal thickening. Right Maxillary sinus with fluid leveling, previous Bilateral maxillary sinus antrectomy. 6mm left ethmoid sinus osteoma) Ordered Tests: Active Orders 24 hr Category Date Time Status EKG-ER Only STAT Care 09/28/19 17:03 Active IV Insertion STAT Care 09/28/19 17:03 Active CHEST 1 VIEW (PORTABLE) Stat Exams 09/28/19 17:04 Taken SINUSES WITHOUT CONTRAST [CT] Stat Exams 09/28/19 17:03 Taken AMYLASE Stat Lab 09/28/19 17:41 Completed CBC W DIFF Stat Lab 09/28/19 17:41 Completed CMP Stat Lab 09/28/19 17:41 Completed CULTURE,URINE Stat Lab 09/28/19 Received LIPASE Stat Lab 09/28/19 17:41 Completed Lactic Acid Stat Lab 09/28/19 17:28 Completed PROTIME WITH INR Stat Lab 09/28/19 17:41 Completed TROPONIN Q3H Lab 09/28/19 17:41 Completed TROPONIN Q3H Lab 09/28/19 20:15 Ordered TROPONIN Q3H Lab 09/28/19 23:15 Ordered TROPONIN Q3H Lab 09/29/19 02:15 Ordered TROPONIN Q3H Lab 09/29/19 05:15 Ordered UA W/RFX UR CULTURE Stat Lab 09/28/19 Completed Urine Triage Profile Stat Lab 09/28/19 17:40 Completed Medication Summary Discontinued Medications Generic Name Dose Route Start Last Admin Trade Name Freq PRN Reason Stop Dose Admin Diphenhydramine HCl 25 mg 09/28/19 17:03 09/28/19 17:43 Benadryl 50 Mg/Ml IV 09/28/19 17:04 25 mg STAT ONE Administration Diphenhydramine HCl Confirm 09/28/19 17:35 Benadryl 50 Mg/Ml Administered 09/28/19 17:36 Dose 50 mg .ROUTE .STK-MED ONE Fentanyl Citrate 50 mcg 09/28/19 16:47 09/28/19 16:59 Sublimaze 100 Mcg/2 Ml IM 09/28/19 16:48 50 mcg STAT ONE Administration Fentanyl Citrate Confirm 09/28/19 16:58 Sublimaze 100 Mcg/2 Ml Administered 09/28/19 16:59 Dose 100 mcg .ROUTE .STK-MED ONE Sodium Chloride 1,000 mls @ 999 mls/hr 09/28/19 17:03 09/28/19 17:43 Sodium Chloride 0.9% 1000 Ml IV 09/28/19 18:03 999 mls/hr .Q1H1M STA Administration Sodium Chloride Confirm 09/28/19 17:35 Sodium Chloride 0.9% 1000 Ml Administered 09/28/19 17:36 Dose 1,000 mls @ ud .ROUTE .STK-MED ONE Lab/Rad Data: Laboratory Result Diagrams 09/28/19 17:41 09/28/19 17:41 Laboratory Results 09/28/19 09/28/19 09/28/19 Range/Units Unknown 17:41 17:41 WBC (4.0-10.5) K/mm3 RBC (4.1-5.4) M/mm3 Hgb (12.0-16.0) gm/dl Hct (35-47) % MCV (78-100) fl MCH (26-32) pg MCHC (32-36) g/dl RDW (11.5-14.0) % Plt Count (150-450) K/mm3 MPV (6-9.5) fl Gran % (36.0-66.0) % Eos # (Auto) (0-0.5) Absolute Lymphs (auto) (1.0-4.6) Absolute Monos (auto) (0.0-1.3) Lymphocytes % (24.0-44.0) % Monocytes % (0.0-12.0) % Eosinophils % (0.00-5.0) % Basophils % (0.0-0.4) % Absolute Granulocytes (1.4-6.9) Basophils # (0-0.4) PT 12.0 (9.95-12.35) SECONDS INR 1.06 (0.8-3.0) Sodium (137-145) mmol/L Potassium (3.5-5.1) mmol/L Chloride (98-107) mmol/L Carbon Dioxide (22-30) mmol/L Anion Gap (5-15) MEQ/L BUN (7-17) mg/dL Creatinine (0.52-1.04) mg/dL Estimated GFR ML/MIN Glucose (74-106) mg/dL Lactic Acid (0.4-2.0) Calcium (8.4-10.2) mg/dL Total Bilirubin (0.2-1.3) mg/dL AST (14-36) U/L ALT (0-35) U/L Alkaline Phosphatase (38-126) U/L Troponin I < 0.012 (0.000-0.034) ng/mL Serum Total Protein (6.3-8.2) g/dL Albumin (3.5-5.0) g/dL Amylase (30-110) U/L Lipase (23-300) U/L Urine Color YELLOW (YELLOW) Urine Appearance CLEAR (CLEAR) Urine pH 6.0 (5-6) Ur Specific [place] 1.006 (1.005-1.025) Urine Protein NEGATIVE (Negative) Urine Ketones TRACE (NEGATIVE) Urine Blood NEGATIVE (0-5) [place]/ul Urine Nitrite NEGATIVE (NEGATIVE) Urine Bilirubin NEGATIVE (NEGATIVE) Urine Urobilinogen NEGATIVE (0-1) mg/dL Ur Leukocyte Esterase NEGATIVE (NEGATIVE) Urine WBC (Auto) 6-10 (0-5) /HPF Urine RBC (Auto) 0-2 (0-2) /HPF U Epithel Cells (Auto) RARE (FEW) /HPF Urine Bacteria (Auto) RARE (NEGATIVE) /HPF Urine Culture Reflexed YES (NO) Urine Glucose NEGATIVE (NEGATIVE) mg/dL Urine Opiates Level (NEGATIVE) Ur Methadone (NEGATIVE) Urine Barbiturates (NEGATIVE) Ur Phencyclidine (PCP) (NEGATIVE) Urine Amphetamine (NEGATIVE) U Benzodiazepine Level (NEGATIVE) Urine Cocaine (NEGATIVE) Urine Marijuana (THC) (NEGATIVE) 09/28/19 09/28/19 09/28/19 Range/Units 17:41 17:41 17:40 WBC 8.3 (4.0-10.5) K/mm3 RBC 5.16 (4.1-5.4) M/mm3 Hgb 15.8 (12.0-16.0) gm/dl Hct 46.2 (35-47) % MCV 89.5 (78-100) fl MCH 30.6 (26-32) pg MCHC 34.2 (32-36) g/dl RDW 13.3 (11.5-14.0) % Plt Count 241 (150-450) K/mm3 MPV 10.4 H (6-9.5) fl Gran % 79.8 H (36.0-66.0) % Eos # (Auto) 0.01 (0-0.5) Absolute Lymphs (auto) 1.24 (1.0-4.6) Absolute Monos (auto) 0.42 (0.0-1.3) Lymphocytes % 14.9 L (24.0-44.0) % Monocytes % 5.1 (0.0-12.0) % Eosinophils % 0.1 (0.00-5.0) % Basophils % 0.1 (0.0-0.4) % Absolute Granulocytes 6.63 (1.4-6.9) Basophils # 0.01 (0-0.4) PT (9.95-12.35) SECONDS INR (0.8-3.0) Sodium 142 (137-145) mmol/L Potassium 3.5 (3.5-5.1) mmol/L Chloride 103 (98-107) mmol/L Carbon Dioxide 28 (22-30) mmol/L Anion Gap 15.5 H (5-15) MEQ/L BUN 12 (7-17) mg/dL Creatinine 0.66 (0.52-1.04) mg/dL Estimated GFR > 60.0 ML/MIN Glucose 98 (74-106) mg/dL Lactic Acid (0.4-2.0) Calcium 10.3 H (8.4-10.2) mg/dL Total Bilirubin 0.50 (0.2-1.3) mg/dL AST 21 (14-36) U/L ALT 17 (0-35) U/L Alkaline Phosphatase 80 (38-126) U/L Troponin I (0.000-0.034) ng/mL Serum Total Protein 8.3 H (6.3-8.2) g/dL Albumin 4.9 (3.5-5.0) g/dL Amylase 62 (30-110) U/L Lipase 42 (23-300) U/L Urine Color (YELLOW) Urine Appearance (CLEAR) Urine pH (5-6) Ur Specific [place] (1.005-1.025) Urine Protein (Negative) Urine Ketones (NEGATIVE) Urine Blood (0-5) [place]/ul Urine Nitrite (NEGATIVE) Urine Bilirubin (NEGATIVE) Urine Urobilinogen (0-1) mg/dL Ur Leukocyte Esterase (NEGATIVE) Urine WBC (Auto) (0-5) /HPF Urine RBC (Auto) (0-2) /HPF U Epithel Cells (Auto) (FEW) /HPF Urine Bacteria (Auto) (NEGATIVE) /HPF Urine Culture Reflexed (NO) Urine Glucose (NEGATIVE) mg/dL Urine Opiates Level NEGATIVE (NEGATIVE) Ur Methadone NEGATIVE (NEGATIVE) Urine Barbiturates POSITIVE (NEGATIVE) Ur Phencyclidine (PCP) NEGATIVE (NEGATIVE) Urine Amphetamine NEGATIVE (NEGATIVE) U Benzodiazepine Level POSITIVE (NEGATIVE) Urine Cocaine NEGATIVE (NEGATIVE) Urine Marijuana (THC) NEGATIVE (NEGATIVE) 09/28/19 Range/Units 17:28 WBC (4.0-10.5) K/mm3 RBC (4.1-5.4) M/mm3 Hgb (12.0-16.0) gm/dl Hct (35-47) % MCV (78-100) fl MCH (26-32) pg MCHC (32-36) g/dl RDW (11.5-14.0) % Plt Count (150-450) K/mm3 MPV (6-9.5) fl Gran % (36.0-66.0) % Eos # (Auto) (0-0.5) Absolute Lymphs (auto) (1.0-4.6) Absolute Monos (auto) (0.0-1.3) Lymphocytes % (24.0-44.0) % Monocytes % (0.0-12.0) % Eosinophils % (0.00-5.0) % Basophils % (0.0-0.4) % Absolute Granulocytes (1.4-6.9) Basophils # (0-0.4) PT (9.95-12.35) SECONDS INR (0.8-3.0) Sodium (137-145) mmol/L Potassium (3.5-5.1) mmol/L Chloride (98-107) mmol/L Carbon Dioxide (22-30) mmol/L Anion Gap (5-15) MEQ/L BUN (7-17) mg/dL Creatinine (0.52-1.04) mg/dL Estimated GFR ML/MIN Glucose (74-106) mg/dL Lactic Acid 1.6 (0.4-2.0) Calcium (8.4-10.2) mg/dL Total Bilirubin (0.2-1.3) mg/dL AST (14-36) U/L ALT (0-35) U/L Alkaline Phosphatase (38-126) U/L Troponin I (0.000-0.034) ng/mL Serum Total Protein (6.3-8.2) g/dL Albumin (3.5-5.0) g/dL Amylase (30-110) U/L Lipase (23-300) U/L Urine Color (YELLOW) Urine Appearance (CLEAR) Urine pH (5-6) Ur Specific [place] (1.005-1.025) Urine Protein (Negative) Urine Ketones (NEGATIVE) Urine Blood (0-5) [place]/ul Urine Nitrite (NEGATIVE) Urine Bilirubin (NEGATIVE) Urine Urobilinogen (0-1) mg/dL Ur Leukocyte Esterase (NEGATIVE) Urine WBC (Auto) (0-5) /HPF Urine RBC (Auto) (0-2) /HPF U Epithel Cells (Auto) (FEW) /HPF Urine Bacteria (Auto) (NEGATIVE) /HPF Urine Culture Reflexed (NO) Urine Glucose (NEGATIVE) mg/dL Urine Opiates Level (NEGATIVE) Ur Methadone (NEGATIVE) Urine Barbiturates (NEGATIVE) Ur Phencyclidine (PCP) (NEGATIVE) Urine Amphetamine (NEGATIVE) U Benzodiazepine Level (NEGATIVE) Urine Cocaine (NEGATIVE) Urine Marijuana (THC) (NEGATIVE) - Progress Progress: improved Progress Note: 09/28/19 19:05 Patient feeling better after IV fluids and medications. Patient is clear to auscultation on repeat examination. Counseled pt/family regarding: lab results, diagnosis, need for follow-up, rad results - Departure Departure Disposition: Home Clinical Impression: Malaise and fatigue, Cough in adult patient Acute maxillary sinusitis, unspecified Qualifiers: Recurrence: not specified as recurrent Qualified Code(s): J01.00 - Acute maxillary sinusitis, unspecified Condition: Good Critical Care Time: No Referrals: KAUSHIK CABRERA MD [Primary Care Provider] - 10/01/19 Instructions: Fatigue (DC), Sinusitis, Adult (DC), Cough, Adult (DC) Additional Instructions: Finish your antibiotics prescribed to you by your physician. You had a CT scan of your sinuses showing a right maxillary sinusitis and left ethmoid sinus osteoma. Your chest x-ray was read as negative per ED physician interpretation. Follow-up with your physician and your ENT to continue evaluate and check response to your symptoms. Return immediately to the emergency department if any worse pain, new fever, productive cough, new shortness of breath, new chest pain, new abdominal pain or any other new or concerning symptoms or signs that were not present at today's emergency department visit for immediate re-evaluation in the emergency department. Prescriptions: Fluticasone Propionate [Flonase NASAL] 2 spray NS BID #1 bottle
[2019-09-28] MEDS ORDERED: SUBLIMAZE 100 MCG/2 ML IM ONE (16:47)
[2019-09-28] MEDS ORDERED: SUBLIMAZE 100 MCG/2 ML ONE (16:58)
[2019-09-28] MEDS ORDERED: Sodium Chloride 0.9% 1000 ML 1,000 ML IV STA (17:03)
[2019-09-28] MEDS ORDERED: BENADRYL 50 MG/ML IV ONE (17:03)
[2019-09-28] MEDS ORDERED: BENADRYL 50 MG/ML ONE (17:35)
[2019-09-28] MEDS ORDERED: Sodium Chloride 0.9% 1000 ML 1,000 ML ONE (17:35)
[2019-09-28 17:45] LABS: Absolute Neutrophil Ct (ANC) 6.63 (1.4-6.9); BASOPHIL % 0.1 % (0.0-0.4); Basophil (Absolute #) 0.01 (0-0.4); Eosinophil % 0.1 % (0.00-5.0); Eosinophil (Absolute #) 0.01 (0-0.5); Hematocrit 46.2 % (35-47); Hemoglobin 15.8 gm/dl (12.0-16.0); Lymphocyte (Absolute #) 1.24 (1.0-4.6); Lymphocytes % 14.9 % (24.0-44.0); Mean Cell Volume 89.5 fl (78-100); Mean Corpuscular Hemoglobin 30.6 pg (26-32); Mean Corpuscular Hgb Concent. 34.2 g/dl (32-36); Mean Platelet Volume 10.4 fl (6-9.5); Monocyte (Absolute #) 0.42 (0.0-1.3); Monocytes % 5.1 % (0.0-12.0); Neutrophil % 79.8 % (36.0-66.0); Platelet Count 241 K/mm3 (150-450); Red Blood Count 5.16 M/mm3 (4.1-5.4); Red Cell Distribution Width 13.3 % (11.5-14.0); White Blood Count 8.3 K/mm3 (4.0-10.5)
[2019-09-28 18:02] LABS: ALBUMIN 4.9 g/dL (3.5-5.0); ALKALINE PHOSPHATASE 80 U/L (38-126); AMYLASE 62 U/L (30-110); ANION GAP 15.5 MEQ/L (5-15); BLOOD UREA NITROGEN 12 mg/dL (7-17); CHLORIDE 103 mmol/L (98-107); Calcium 10.3 mg/dL (8.4-10.2); Carbon Dioxide 28 mmol/L (22-30); Creatinine 1 0.66 mg/dL (0.52-1.04); Glucose 98 mg/dL (74-106); LIPASE 42 U/L (23-300); Potassium 3.5 mmol/L (3.5-5.1); SGOT/AST 21 U/L (14-36); SGPT/ALT 17 U/L (0-35); SODIUM 142 mmol/L (137-145); Total Protein 8.3 g/dL (6.3-8.2)
[2019-09-28 18:03] LABS: Appearance CLEAR (CLEAR); Bacteria RARE /HPF (NEGATIVE); Bilirubin NEGATIVE (NEGATIVE); Blood NEGATIVE Ery/ul (0-5); Epithelial Cells RARE /HPF (FEW); Glucose NEGATIVE (NEGATIVE); Ketones TRACE (NEGATIVE); Leukocyte Esterase NEGATIVE (NEGATIVE); Nitrite NEGATIVE (NEGATIVE); Protein,Urine Dip NEGATIVE (Negative); RBC 0-2 /HPF (0-2); Specific Gravity 1.006 (1.005-1.025); Urobilinogen NEGATIVE mg/dL (0-1)
[2019-09-28 18:14] LABS: Amphetamine,Urine NEGATIVE (NEGATIVE); Barbiturate,Urine POSITIVE (NEGATIVE); Benzodiazepine,Urine POSITIVE (NEGATIVE); Cocaine,Urine NEGATIVE (NEGATIVE); Methadone,Urine NEGATIVE (NEGATIVE); Opiate,Urine NEGATIVE (NEGATIVE); PCP,Urine NEGATIVE (NEGATIVE); THC,Urine NEGATIVE (NEGATIVE)
[2019-09-28 18:35] LABS: INR 1.06 (0.8-3.0)
[2019-09-28 18:44] VITALS: PULSE 82
[2019-09-28 18:56] VITALS: O2SAT 97
[2019-09-28 19:29] VITALS: BP 142/78
--- NOTE | 2019-09-29 08:43 | XRAY ---
Indication: Cough and congestion 2 weeks. Multiple axial images obtained through the paranasal sinuses. Sagittal and coronal reformatted images obtained. Comparison: None There has been bilateral maxillary sinus antrectomy. Right maxillary sinus demonstrates mild fluid leveling. 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 Right ostiomeatal unit demonstrates mild mucosal thickening at the level of the ostium. Nasal passages clear with minimal nasal septal deviation to the left. No acute fracture or suspicious bony lesions. Patient is edentulous. Visualized noncontrasted soft tissues including base of the brain unremarkable. Impression: 1. Bilateral maxillary sinus antrectomy with mild right maxillary sinus disease and mucosal thickening of the right ostiomeatal unit. 2. Incidental tiny left ethmoid sinus osteoma and minimal nasal septal deviation. CT DI 55.75
--- NOTE | 2019-09-29 08:45 | XRAY ---
Indication: Cough and body aches 2 weeks. Comparison: September 17, 2019. Portable chest again demonstrates normal heart and lungs with incidental tiny left base calcified granuloma. Bony thorax intact. No new/acute findings.
== END 2019-09-28 19:27 | disposition home or self-care (01) ==
LOC: ED 16:35
DX: R53.81 Other malaise (principal); R53.83 Other fatigue; R05 Cough; J01.00 Acute maxillary sinusitis, unspecified
CPT/HCPCS: 36000; 36415; 70486; 71045; 80053; 80307; 81001; 82150; 83605; 83690; 84484; 85025; 85610; 87086; 93005; 96372; 96374; 99284; 99285; J1200; J3010

== ENCOUNTER 2019-11-15 10:08 | Emergency (ER) | payer MEDICARE ==
[2019-11-15] MEDS ORDERED: TORAdol 30 mg Injection IM ONE (10:19)
[2019-11-15] MEDS ORDERED: Norflex 60 MG/2 ML IV ONE (10:19)
[2019-11-15 10:20] VITALS: O2SAT 98
[2019-11-15] MEDS ORDERED: TORAdol 30 mg Injection ONE (10:24)
[2019-11-15] MEDS ORDERED: Norflex 60 MG/2 ML ONE (10:24)
--- NOTE | 2019-11-15 10:44 | ERPHSYRPT ---
- History of Present Illness Time Seen by Provider: 11/15/19 10:41 Source: patient Exam Limitations: no limitations Patient Subjective Stated Complaint: Low back pain Triage Nursing Assessment: Patient brought into ED per EMS and transferred to bed with assist of 3. Patient A+O X 3. Patient's skin pink, warm and dry. Patient complains of low back pain for the past two days that has gotten worse. Paient complains of constant, sharp pain to lower back 10/10. No visible injuries or bruising noted. Patient has hx of chonic back pain. Physician History: Low back pain for few days. Patient complains of low back pain for the past two days that has gotten worse. Patient complains of constant, sharp pain to lower back 10/10. No visible injuries or bruising noted. Patient has hx of chonic back pain. Timing/Duration: day(s) Method of Injury: unknown Severity of Pain-Max: moderate Severity of Pain-Current: moderate Modifying Factors: Improves With: nothing Associated Symptoms: denies symptoms Previous symptoms: same symptoms as today Allergies/Adverse Reactions: bupropion HCl [From Wellbutrin] Allergy (Mild, Verified 11/15/19 10:20) CVA SYMPTOMS citalopram hydrobromide [From Celexa] Allergy (Mild, Verified 11/15/19 10:20) UNKNOWN REACTION naproxen Allergy (Mild, Verified 11/15/19 10:20) VOMIT BLOOD sumatriptan [From Imitrex] Allergy (Mild, Verified 11/15/19 10:20) Headache ELEVATES BLOOD PRESSURE sumatriptan succinate [From Imitrex] Allergy (Mild, Verified 11/15/19 10:20) Headache ELEVATES BLOOD PRESSURE Home Medications: Albuterol Sulfate [Proair Hfa] 2 puffs IH TID PRN PRN 02/04/15 [History] Aripiprazole [Abilify] 30 mg PO HS 02/04/15 [History] Gabapentin [Neurontin] 800 mg PO TID 02/04/15 [History] Omeprazole 20 MG [Prilosec 20 mg] 40 mg PO DAILY 02/04/15 [History] Ropinirole HCl 2 mg PO HS 02/04/15 [History] Carisoprodol 350 mg [Soma 350 mg] 350 mg PO BID 07/07/17 [History] Codeine/Butalbit/Acetamin/Caff [Fioricet-Cod 10-92-331-40 Cap] 1 each PO BID PRN PRN 07/07/17 [History] Furosemide 20 mg [Lasix 20 mg] 20 mg PO DAILY 07/07/17 [History] Potassium Chloride 20 Meq [Klor-Con 20 MEQ] 20 meq PO DAILY 07/07/17 [History] Venlafaxine HCl [Venlafaxine HCl ER] 150 mg PO DAILY 07/07/17 [History] Phentermine HCl [Adipex-P] 37.5 mg PO DAILY 01/22/18 [History] Diclofenac Sodium Gel [Voltaren GEL] 100 gm TP TID PRN PRN 04/20/19 [ History] Erenumab-Aooe [Aimovig Autoinjector] 1 dose IM UD 04/20/19 [History] Fluticasone Propionate [Flonase NASAL] 2 sprays NS BID 04/20/19 [History] Promethazine HCl 25 mg [Phenergan 25 mg] 12.5 mg PO Q4H PRN PRN 04/20/19 [ History] Tapentadol HCl [Nucynta ER] 250 mg PO BID 04/20/19 [History] Hx Tetanus, Diphtheria Vaccination/Date Given: No Hx Influenza Vaccination/Date Given: No Hx Pneumococcal Vaccination/Date Given: No Immunizations Up to Date: Yes - Review of Systems Constitutional: No Fever, No Chills Eyes: No Symptoms Ears, Nose, & Throat: No Symptoms Respiratory: No Cough, No Dyspnea Cardiac: No Chest Pain, No Edema, No Syncope Abdominal/Gastrointestinal: No Abdominal Pain, No Nausea, No Vomiting, No Diarrhea Genitourinary Symptoms: No Dysuria Musculoskeletal: Back Pain, No Neck Pain Skin: No Rash Neurological: No Dizziness, No Focal Weakness, No Sensory Changes Psychological: No Symptoms Endocrine: No Symptoms All Other Systems: Reviewed and Negative - Past Medical History Pertinent Past Medical History: Yes Neurological History: Migraines ENT History: No Pertinent History Cardiac History: Angina, Other Respiratory History: Asthma Endocrine Medical History: No Pertinent History Musculoskeletal History: Arthritis, Degenerative Disk Disease, Fibromyalgia GI Medical History: GERD, Ulcer History: No Pertinent History Psycho-Social History: Anxiety, Depression, Panic Disorder Female Reproductive Disorders: Fibroids Other Medical History: chronic back pain - Past Surgical History Past Surgical History: Yes Neuro Surgical History: No Pertinent History Cardiac: Cardiac Catheterization Respiratory: No Pertinent History Gastrointestinal: No Pertinent History Genitourinary: No Pertinent History Musculoskeletal: Joint Replacement Female Surgical History: Hysterectomy Other Surgical History: D&C, right elbow, tubes in ears, deviated septum - Social History Smoking Status: Current every day smoker How long have you smoked: 40 Exposure to second hand smoke: No Alcohol Use: None Drug Use: none Patient Lives Alone: Yes Significant Family History: no pertinent family hx - Female History Hx Last Menstrual Period: hysterectomy Hx Now: No - Nursing Vital Signs Nursing Vital Signs: Initial Vital Signs Pulse Rate 84 11/15/19 10:11 Respiratory Rate 18 11/15/19 10:11 Blood Pressure 133/84 11/15/19 10:11 O2 Sat by Pulse Oximetry 98 11/15/19 10:11 Pain Scale Pain Intensity 10 - Physical Exam General Appearance: no apparent distress, alert Eye Exam: PERRL/EOMI, eyes nml inspection Neck Exam: normal inspection, non-tender, supple, full range of motion, No meningismus, No midline tenderness Respiratory Exam: normal breath sounds, lungs clear, No respiratory distress Cardiovascular Exam: regular rate/rhythm, normal heart sounds Gastrointestinal Exam: soft, No tenderness, No mass Back Exam: decreased range of motion, muscle spasm Extremity Exam: normal inspection, normal range of motion, No calf tenderness, No pedal edema Neurologic Exam: alert, oriented x 3, cooperative, microcomputer technician II-XII nml as tested, normal mood/affect, nml station & gait, sensation nml, No motor deficits Skin Exam: normal color, warm, dry, No rash SpO2: 98 - Course Nursing assessment & vital signs reviewed: Yes Ordered Tests: Active Orders 24 hr Category Date Time Status CBC W DIFF Stat Lab 11/15/19 10:49 Completed CMP Stat Lab 11/15/19 10:49 Completed UA W/RFX UR CULTURE Stat Lab 11/15/19 11:22 Ordered Medication Summary Discontinued Medications Generic Name Dose Route Start Last Admin Trade Name Freq PRN Reason Stop Dose Admin Fentanyl Citrate 75 mcg 11/15/19 11:12 Sublimaze 100 Mcg/2 Ml IV 11/15/19 11:13 STAT ONE Ketorolac Tromethamine 60 mg 11/15/19 10:19 11/15/19 10:53 Toradol 30 Mg Injection IM 11/15/19 10:20 60 mg STAT ONE Administration Ketorolac Tromethamine Confirm 11/15/19 10:24 Toradol 30 Mg Injection Administered 11/15/19 10:25 Dose 60 mg .ROUTE .STK-MED ONE Morphine Sulfate 4 mg 11/15/19 11:12 Morphine Sulfate 4 Mg Inj IV 11/15/19 11:13 STAT ONE Orphenadrine Citrate 60 mg 11/15/19 10:19 11/15/19 10:56 Norflex 60 Mg/2 Ml IV 11/15/19 10:20 60 mg STAT ONE Administration Orphenadrine Citrate Confirm 11/15/19 10:24 Norflex 60 Mg/2 Ml Administered 11/15/19 10:25 Dose 60 mg .ROUTE .STK-MED ONE Lab/Rad Data: Laboratory Result Diagrams 11/15/19 10:49 11/15/19 10:49 Laboratory Results 11/15/19 11/15/19 Range/Units 10:49 10:49 WBC 6.4 (4.0-10.5) K/mm3 RBC 4.48 (4.1-5.4) M/mm3 Hgb 13.6 (12.0-16.0) gm/dl Hct 42.4 (35-47) % MCV 94.6 (78-100) fl MCH 30.4 (26-32) pg MCHC 32.1 (32-36) g/dl RDW 13.4 (11.5-14.0) % Plt Count 233 (150-450) K/mm3 MPV 10.0 H (6-9.5) fl Gran % 56.3 (36.0-66.0) % Eos # (Auto) 0.16 (0-0.5) Absolute Lymphs (auto) 1.97 (1.0-4.6) Absolute Monos (auto) 0.64 (0.0-1.3) Lymphocytes % 30.7 (24.0-44.0) % Monocytes % 10.0 (0.0-12.0) % Eosinophils % 2.5 (0.00-5.0) % Basophils % 0.5 (0.0-0.4) % Absolute Granulocytes 3.61 (1.4-6.9) Basophils # 0.03 (0-0.4) Sodium 143 (137-145) mmol/L Potassium 4.4 (3.5-5.1) mmol/L Chloride 105 (98-107) mmol/L Carbon Dioxide 29 (22-30) mmol/L Anion Gap 13.2 (5-15) MEQ/L BUN 10 (7-17) mg/dL Creatinine 0.62 (0.52-1.04) mg/dL Estimated GFR > 60.0 ML/MIN Glucose 78 (74-106) mg/dL Calcium 9.7 (8.4-10.2) mg/dL Total Bilirubin 0.50 (0.2-1.3) mg/dL AST 40 H (14-36) U/L ALT 34 (0-35) U/L Alkaline Phosphatase 62 (38-126) U/L Serum Total Protein 7.8 (6.3-8.2) g/dL Albumin 4.4 (3.5-5.0) g/dL - Progress Progress: improved, pain not gone completely Counseled pt/family regarding: diagnosis, need for follow-up, rad results - Departure Departure Disposition: Home Clinical Impression: Chronic pain after traumatic injury Low back pain Qualifiers: Chronicity: chronic Back pain laterality: unspecified Sciatica presence: without sciatica Qualified Code(s): M54.5 - Low back pain; G89.29 - Other chronic pain Condition: Stable Critical Care Time: No Referrals: KAUSHIK CABRERA MD [Primary Care Provider] - Instructions: Low Back Pain (DC) Additional Instructions: Discharge/Care Plan BENITEZ LOPEZ was seen on 11/15/19 in the Emergency Room. The patient was counseled regarding Diagnosis,Lab results, Imaging studies, need for follow up and when to return to the Emergency Room. Prescriptions given: Discharge Note I have spoken with the patient and/or caregivers. I have explained the patient' s condition, diagnosis and treatment plan based on the information available to me at this time. I have answered the patient's and/or caregiver's questions and addressed any concerns. The patient and/or caregivers have as good understanding of the patient's diagnosis, condition and treatment plan as can be expected at this point. The vital signs have been stable. The patient's condition is stable and appropriate for discharge from the emergency department. The patient will pursue further outpatient evaluation with the primary care physician or other designated or consulting physician as outlined in the discharge instructions. The patient and/or caregivers are agreeable to this plan of care and follow-up instructions have been explained in detail. The patient and/or caregivers have received these instruction. The patient/and or caregivers are aware that any significant change in condition or worsening of symptoms should prompt an immediate return to this or the closest emergency department or call 911.
[2019-11-15 10:52] LABS: Absolute Neutrophil Ct (ANC) 3.61 (1.4-6.9); BASOPHIL % 0.5 % (0.0-0.4); Basophil (Absolute #) 0.03 (0-0.4); Eosinophil % 2.5 % (0.00-5.0); Eosinophil (Absolute #) 0.16 (0-0.5); Hematocrit 42.4 % (35-47); Hemoglobin 13.6 gm/dl (12.0-16.0); Lymphocyte (Absolute #) 1.97 (1.0-4.6); Lymphocytes % 30.7 % (24.0-44.0); Mean Cell Volume 94.6 fl (78-100); Mean Corpuscular Hemoglobin 30.4 pg (26-32); Mean Corpuscular Hgb Concent. 32.1 g/dl (32-36); Monocyte (Absolute #) 0.64 (0.0-1.3); Neutrophil % 56.3 % (36.0-66.0); Platelet Count 233 K/mm3 (150-450); Red Blood Count 4.48 M/mm3 (4.1-5.4); Red Cell Distribution Width 13.4 % (11.5-14.0); White Blood Count 6.4 K/mm3 (4.0-10.5)
[2019-11-15 11:02] LABS: ALBUMIN 4.4 g/dL (3.5-5.0); ALKALINE PHOSPHATASE 62 U/L (38-126); ANION GAP 13.2 MEQ/L (5-15); BLOOD UREA NITROGEN 10 mg/dL (7-17); CHLORIDE 105 mmol/L (98-107); Calcium 9.7 mg/dL (8.4-10.2); Carbon Dioxide 29 mmol/L (22-30); Creatinine 1 0.62 mg/dL (0.52-1.04); Glucose 78 mg/dL (74-106); SGOT/AST 40 U/L (14-36); SGPT/ALT 34 U/L (0-35); SODIUM 143 mmol/L (137-145); Total Protein 7.8 g/dL (6.3-8.2)
[2019-11-15 11:09] LABS: Potassium 4.4 mmol/L (3.5-5.1)
[2019-11-15] MEDS ORDERED: SUBLIMAZE 100 MCG/2 ML IV ONE (11:12)
[2019-11-15] MEDS ORDERED: MORPHINE SULFATE 4 MG INJ IV ONE (11:12)
[2019-11-15 11:40] LABS: Appearance CLEAR (CLEAR); Bilirubin NEGATIVE (NEGATIVE); Blood NEGATIVE Ery/ul (0-5); Glucose NEGATIVE (NEGATIVE); Ketones NEGATIVE (NEGATIVE); Leukocyte Esterase NEGATIVE (NEGATIVE); Mucus SLIGHT /HPF (NEGATIVE); Nitrite NEGATIVE (NEGATIVE); Protein,Urine Dip NEGATIVE (Negative); Specific Gravity 1.003 (1.005-1.025); Urobilinogen NEGATIVE mg/dL (0-1)
[2019-11-15] MEDS ORDERED: SUBLIMAZE 100 MCG/2 ML ONE (11:47)
[2019-11-15] MEDS ORDERED: BENADRYL 50 MG/ML IV ONE (11:48)
[2019-11-15] MEDS ORDERED: BENADRYL 50 MG/ML ONE (11:55)
[2019-11-15 12:01] VITALS: PULSE 84
[2019-11-15 12:23] VITALS: BP 113/63
== END 2019-11-15 12:23 | disposition home or self-care (01) ==
LOC: ED 10:08
DX: M54.5 Low back pain (principal); G89.29 Other chronic pain; Z79.899 Other long term (current) drug therapy
CPT/HCPCS: 36415; 80053; 81001; 85025; 96372; 96374; 99284; J1200; J1885; J2360; J3010

== ENCOUNTER 2020-11-25 03:30 | Emergency (ER) | payer MEDICARE ==
--- NOTE | 2020-11-25 03:46 | ERPHSYRPT ---
- History of Present Illness Time Seen by Provider: 11/25/20 03:45 Source: patient Exam Limitations: no limitations Physician History: This is a 55-year-old white female who has chronic low back pain issues and presents with recurrent, acute exacerbation of chronic low back pain. She states that this episode began at 8 PM last night and tried to just lay still so she would not have pain. Patient has been in this emergency department several times for back pain issues. She was fired from one of her pain specialist for taking too many narcotics. Her most recent pain specialist retired. Patient denies fall or trauma to her back. Timing/Duration: yesterday Method of Injury: other (No injury) Quality: radiating, sharp Back Pain Location: lumbar spine Back Pain Radiation: buttocks Severity of Pain-Max: moderate Severity of Pain-Current: moderate Associated Symptoms: denies symptoms, lower back pain, muscle spasms, No urinary incontinence, No loss of bowel control, No constipation, No nausea, No vomiting, No problems urinating, No numbness in legs/feet Previous symptoms: same symptoms as today Allergies/Adverse Reactions: bupropion HCl [From Wellbutrin] Allergy (Mild, Verified 11/25/20 03:38) CVA SYMPTOMS citalopram hydrobromide [From Celexa] Allergy (Mild, Verified 11/25/20 03:38) UNKNOWN REACTION naproxen Allergy (Mild, Verified 11/25/20 03:38) VOMIT BLOOD sumatriptan [From Imitrex] Allergy (Mild, Verified 11/25/20 03:38) Headache ELEVATES BLOOD PRESSURE sumatriptan succinate [From Imitrex] Allergy (Mild, Verified 11/25/20 03:38) Headache ELEVATES BLOOD PRESSURE Home Medications: Albuterol Sulfate [Proair Hfa] 2 puffs IH TID PRN PRN 02/04/15 [History] Aripiprazole [Abilify] 30 mg PO HS 02/04/15 [History] Gabapentin [Neurontin] 800 mg PO TID 02/04/15 [History] Omeprazole 20 MG [Prilosec 20 mg] 40 mg PO DAILY 02/04/15 [History] Ropinirole HCl 2 mg PO HS 02/04/15 [History] Carisoprodol 350 mg [Soma 350 mg] 350 mg PO BID 07/07/17 [History] Codeine/Butalbit/Acetamin/Caff [Fioricet-Cod 12-25-006-40 Cap] 1 each PO BID PRN PRN 07/07/17 [History] Furosemide 20 mg [Lasix 20 mg] 20 mg PO DAILY 07/07/17 [History] Potassium Chloride 20 Meq [Klor-Con 20 MEQ] 20 meq PO DAILY 07/07/17 [History] Venlafaxine HCl [Venlafaxine HCl ER] 150 mg PO DAILY 07/07/17 [History] Phentermine HCl [Adipex-P] 37.5 mg PO DAILY 01/22/18 [History] Diclofenac Sodium Gel [Voltaren GEL] 100 gm TP TID PRN PRN 04/20/19 [History] Erenumab-Aooe [Aimovig Autoinjector] 1 dose IM UD 04/20/19 [History] Fluticasone Propionate [Flonase NASAL] 2 sprays NS BID 04/20/19 [History] Promethazine HCl 25 mg [Phenergan 25 mg] 12.5 mg PO Q4H PRN PRN 04/20/19 [History] Tapentadol HCl [Nucynta ER] 250 mg PO BID 04/20/19 [History] Hx Tetanus, Diphtheria Vaccination/Date Given: No Hx Influenza Vaccination/Date Given: No Hx Pneumococcal Vaccination/Date Given: No Travel Risk - International Travel Have you traveled outside of the country in past 3 weeks: No - Coronavirus Screening Are you exhibiting any of the following symptoms?: No Close contact with a COVID-19 positive Pt in past 14-21 Days: No - Review of Systems Constitutional: No Symptoms Eyes: No Symptoms Ears, Nose, & Throat: No Symptoms Respiratory: No Symptoms Cardiac: No Symptoms Abdominal/Gastrointestinal: No Symptoms Genitourinary Symptoms: No Symptoms Musculoskeletal: Back Pain Skin: No Symptoms Neurological: No Symptoms Psychological: No Symptoms Endocrine: No Symptoms Hematologic/Lymphatic: No Symptoms Immunological/Allergic: No Symptoms All Other Systems: Reviewed and Negative - Past Medical History Pertinent Past Medical History: Yes Neurological History: No Pertinent History ENT History: No Pertinent History Cardiac History: No Pertinent History Respiratory History: Asthma, Bronchitis, Pneumonia Endocrine Medical History: No Pertinent History Musculoskeletal History: No Pertinent History GI Medical History: GERD, Ulcer History: No Pertinent History Psycho-Social History: Anxiety, Depression, Panic Disorder Female Reproductive Disorders: Fibroids Other Medical History: chronic back pain - Past Surgical History Past Surgical History: Yes Neuro Surgical History: No Pertinent History Cardiac: Cardiac Catheterization Respiratory: No Pertinent History Gastrointestinal: No Pertinent History Genitourinary: No Pertinent History Musculoskeletal: Joint Replacement Female Surgical History: Hysterectomy Other Surgical History: D&C, right elbow, tubes in ears, deviated septum - Social History Smoking Status: Current every day smoker How long have you smoked: 40 Exposure to second hand smoke: No Alcohol Use: None Drug Use: none Patient Lives Alone: Yes Significant Family History: no pertinent family hx - Physical Exam General Appearance: mild distress, alert, anxiety, obese Eye Exam: PERRL/EOMI, eyes nml inspection Ears, Nose, Throat Exam: normal ENT inspection, moist mucous membranes Neck Exam: normal inspection, non-tender, supple, full range of motion Respiratory Exam: normal breath sounds, lungs clear, airway intact, No chest tenderness, No respiratory distress Cardiovascular Exam: regular rate/rhythm, normal heart sounds, normal peripheral pulses Gastrointestinal Exam: soft, normal bowel sounds, No tenderness Pelvic Exam: not done Rectal Exam: not done Back Exam: normal inspection, normal range of motion, muscle spasm, No CVA tenderness Extremity Exam: normal inspection, normal range of motion, pelvis stable Neurologic Exam: alert, oriented x 3, cooperative, balancer scale II-XII nml as tested, normal mood/affect, nml cerebellar function, nml station & gait, sensation nml Skin Exam: normal color, warm, dry Lymphatic Exam: No adenopathy SpO2 Interpretation: normal O2 Delivery: Room Air - Course Nursing assessment & vital signs reviewed: Yes Ordered Tests: Medication Summary Generic Name Dose Route Start Last Admin Trade Name Freq PRN Reason Stop Dose Admin Methylprednisolone Sodium Succinate 125 mg 11/25/20 03:56 Solu-Medrol 125 Mg IM 11/25/20 03:57 STAT ONE Orphenadrine Citrate 60 mg 11/25/20 03:56 Norflex 60 Mg/2 Ml IM 11/25/20 03:57 STAT ONE Oxycodone/Acetaminophen 1 tab 11/25/20 03:57 Oxycodone-Acetaminophen 10-325 PO 11/25/20 03:58 STAT STA - Progress Progress: unchanged, pain not gone completely, re-examined Progress Note: 11/25/20 04:03 Medical decision making: This patient was seen walking normally into the emergency department registration area and then walking normally and moving normally to the waiting area. As soon as nurses were accompanying her to the emergency room bed, she began moaning with pain. Patient was quiet in the room but then when I entered the room she began moaning. However she could move and transfer and rotate fine without any assistance. Will provide her with steroid, muscle relaxant and narcotic pain pill here in the emergency department. We had a discussion about outpatient treatment and we have decided to provide her with prescription for more steroid and muscle relaxants. 11/25/20 04:04 Counseled pt/family regarding: diagnosis, need for follow-up - Departure Departure Disposition: Home Clinical Impression: Acute exacerbation of chronic low back pain Condition: Stable Critical Care Time: No Referrals: KAUSHIK CABRERA MD [Primary Care Provider] - Additional Instructions: Take your medications as prescribed. Follow-up with your prescribing physician as well as your pain management physician for further management of your chronic condition. Prescriptions: Carisoprodol 350 mg [Soma 350 mg] 350 mg PO Q8H PRN PRN #10 tablet PRN Reason: Muscle Spasms Prednisone 10 mg [Deltasone 10 mg] 10 mg PO TID #12 tablet
[2020-11-25] MEDS ORDERED: solu-MEDROL 125 MG IM ONE (03:56)
[2020-11-25] MEDS ORDERED: Norflex 60 MG/2 ML IM ONE (03:56)
[2020-11-25] MEDS ORDERED: OXYCODONE-ACETAMINOPHEN 10-325 PO STA (03:57)
[2020-11-25] MEDS ORDERED: OXYCODONE-ACETAMINOPHEN 10-325 ONE (04:00)
[2020-11-25] MEDS ORDERED: solu-MEDROL 125 MG ONE (04:00)
[2020-11-25] MEDS ORDERED: Norflex 60 MG/2 ML ONE (04:00)
[2020-11-25 04:24] VITALS: BP 129/84; PULSE 89; O2SAT 97
== END 2020-11-25 04:58 | disposition home or self-care (01) ==
LOC: ED 03:30
DX: M54.5 Low back pain (principal); Z79.899 Other long term (current) drug therapy
CPT/HCPCS: 96372; 99284; J2360; J2930; A9270-GY

== ENCOUNTER 2021-04-20 10:02 | Emergency (ER) | payer MEDICARE ==
--- NOTE | 2021-04-20 10:06 | ERPHSYRPT ---
- History of Present Illness Time Seen by Provider: 04/20/21 10:06 Source: patient Exam Limitations: no limitations Physician History: This is a 55-year-old morbidly obese white female who presents with bilateral lower extremity swelling. This has been occurring over the last few weeks. Patient states the swelling is worse in the last 2 days. Patient had an appointment to see her primary care physician yesterday but missed it because her sister had a myocardial infarction and she was providing support care for her sister. Patient had some mild shortness of breath. She denies chest pain. She has not had fevers or chills. She said no nausea vomiting or diarrhea. Patient is taking Lasix but only 20 mg once a day orally. Patient had called her primary care physician and they told her to come into the emergency room to have an evaluation performed. Occurred: other (Present for the last few weeks and worsening over the last 2 days.) Quality: intermittent Severity of Pain-Max: none Severity of Pain-Current: none Modifying Factors: Improves With: nothing Associated Symptoms: none Allergies/Adverse Reactions: bupropion HCl [From Wellbutrin] Allergy (Mild, Verified 04/20/21 10:20) CVA SYMPTOMS citalopram hydrobromide [From Celexa] Allergy (Mild, Verified 04/20/21 10:20) UNKNOWN REACTION naproxen Allergy (Mild, Verified 04/20/21 10:20) VOMIT BLOOD sumatriptan [From Imitrex] Allergy (Mild, Verified 04/20/21 10:20) Headache ELEVATES BLOOD PRESSURE sumatriptan succinate [From Imitrex] Allergy (Mild, Verified 04/20/21 10:20) Headache ELEVATES BLOOD PRESSURE Home Medications: Albuterol Sulfate [Proair Hfa] 2 puffs IH TID PRN PRN 02/04/15 [History] Aripiprazole [Abilify] 30 mg PO HS 02/04/15 [History] Gabapentin [Neurontin] 800 mg PO TID 02/04/15 [History] Omeprazole 20 MG [Prilosec 20 mg] 40 mg PO DAILY 02/04/15 [History] Furosemide 20 mg [Lasix 20 mg] 20 mg PO DAILY 07/07/17 [History] Potassium Chloride 20 Meq [Klor-Con 20 MEQ] 20 meq PO DAILY 07/07/17 [History] Venlafaxine HCl [Venlafaxine HCl ER] 150 mg PO DAILY 07/07/17 [History] Phentermine HCl [Adipex-P] 37.5 mg PO DAILY 01/22/18 [History] Diclofenac Sodium Gel [Voltaren GEL] 100 gm TP TID PRN PRN 04/20/19 [History] Erenumab-Aooe [Aimovig Autoinjector] 1 dose IM UD 04/20/19 [History] Fluticasone Propionate [Flonase NASAL] 2 sprays NS BID 04/20/19 [History] Promethazine HCl 25 mg [Phenergan 25 mg] 12.5 mg PO Q4H PRN PRN 04/20/19 [ History] Hx Tetanus, Diphtheria Vaccination/Date Given: No Hx Influenza Vaccination/Date Given: No Hx Pneumococcal Vaccination/Date Given: No Travel Risk - International Travel Have you traveled outside of the country in past 3 weeks: No - Coronavirus Screening Are you exhibiting any of the following symptoms?: No Close contact with a COVID-19 positive Pt in past 14-21 Days: No - Review of Systems Constitutional: No Symptoms Eyes: No Symptoms Ears, Nose, & Throat: No Symptoms Respiratory: No Symptoms Cardiac: No Symptoms Abdominal/Gastrointestinal: No Symptoms Genitourinary Symptoms: No Symptoms Musculoskeletal: Other (Lateral pedal and ankle edema) Skin: No Symptoms Neurological: No Symptoms Psychological: No Symptoms Endocrine: No Symptoms Hematologic/Lymphatic: No Symptoms Immunological/Allergic: No Symptoms All Other Systems: Reviewed and Negative - Past Medical History Pertinent Past Medical History: Yes Neurological History: No Pertinent History ENT History: No Pertinent History Cardiac History: No Pertinent History Respiratory History: Asthma, Bronchitis, Pneumonia Endocrine Medical History: No Pertinent History Musculoskeletal History: No Pertinent History GI Medical History: GERD, Ulcer History: No Pertinent History Psycho-Social History: Anxiety, Depression, Panic Disorder Female Reproductive Disorders: Fibroids Other Medical History: chronic back pain - Past Surgical History Past Surgical History: Yes Neuro Surgical History: No Pertinent History Cardiac: Cardiac Catheterization Respiratory: No Pertinent History Gastrointestinal: No Pertinent History Genitourinary: No Pertinent History Musculoskeletal: Joint Replacement Female Surgical History: Hysterectomy Other Surgical History: D&C, right elbow, tubes in ears, deviated septum - Social History Smoking Status: Current every day smoker How long have you smoked: 40 Exposure to second hand smoke: No Alcohol Use: None Drug Use: none Patient Lives Alone: Yes Significant Family History: no pertinent family hx - Nursing Vital Signs Nursing Vital Signs: Initial Vital Signs Temperature 98.0 F 04/20/21 10:02 Pulse Rate 86 04/20/21 10:02 Respiratory Rate 20 04/20/21 10:02 Blood Pressure 144/79 04/20/21 10:02 O2 Sat by Pulse Oximetry 98 04/20/21 10:02 Pain Scale Pain Intensity 7 - Physical Exam General Appearance: no apparent distress, alert, anxiety, obese Eyes, Ears, Nose, Throat Exam: normal ENT inspection, moist mucous membranes Neck Exam: normal inspection, non-tender, supple, full range of motion Cardiovascular/Respiratory Exam: chest non-tender, normal breath sounds, regular rate/rhythm, heart sounds normal, no respiratory distress Gastrointestinal/Abdominal Exam: non-tender Back Exam: normal inspection, normal range of motion, No CVA tenderness, No beto tebral tenderness Hips Exam: bilateral: non-tender, normal inspection, normal range of motion, no evidence of injury Legs Exam: bilateral leg: non-tender, normal inspection, normal range of motion, no evidence of injury Knees Exam: bilateral knee: non-tender, normal inspection, normal range of motion, no evidence of injury Ankle Exam: bilateral ankle: non-tender, normal range of motion, no evidence of injury, swelling Foot Exam: bilateral foot: non-tender, normal range of motion, no evidence of injury, swelling Neuro/Tendon Exam: normal sensation, normal motor functions, normal tendon functions Mental Status Exam: alert, oriented x 3, cooperative Skin Exam: normal color, warm, dry SpO2 Interpretation: normal O2 Delivery: Room Air Ordered Tests: Active Orders 24 hr Category Date Time Status Fuel Verification Technician STAT Care 04/20/21 11:00 Active EKG-ER Only STAT Care 04/20/21 10:59 Active Pulse Oximetry (ED) STAT Care 04/20/21 10:59 Active CHEST 1 VIEW (PORTABLE) Stat Exams 04/20/21 11:00 Completed CBC W DIFF Stat Lab 04/20/21 11:27 Completed CMP Stat Lab 04/20/21 11:27 Completed D-DIMER QUANTITATIVE Stat Lab 04/20/21 11:27 Completed MAG [MAGNESIUM] Stat Lab 04/20/21 11:27 Completed NT PRO BNP Stat Lab 04/20/21 11:27 Completed Medication Summary Discontinued Medications Generic Name Dose Route Start Last Admin Trade Name Sheridan PRN Reason Stop Dose Admin Furosemide 40 mg 04/20/21 10:59 04/20/21 11:11 Lasix 40 Mg/4 Ml IV 04/20/21 11:00 40 mg STAT ONE Administration Furosemide Confirm 04/20/21 11:10 Lasix 40 Mg/4 Ml Administered 04/20/21 11:11 Dose 40 mg .ROUTE .STK-MED ONE Lab/Rad Data: Laboratory Result Diagrams 04/20/21 11:27 04/20/21 11:27 Laboratory Results 04/20/21 04/20/21 04/20/21 Range/Units 11:27 11:27 11:27 WBC (4.0-10.5) K/mm3 RBC (4.1-5.4) M/mm3 Hgb (12.0-16.0) gm/dl Hct (35-47) % MCV (78-100) fl MCH (26-32) pg MCHC (32-36) g/dl RDW (11.5-14.0) % Plt Count (150-450) K/mm3 MPV (7.5-11.0) fl Gran % (36.0-66.0) % Eos # (Auto) (0-0.5) Absolute Lymphs (auto) (1.0-4.6) Absolute Monos (auto) (0.0-1.3) Lymphocytes % (24.0-44.0) % Monocytes % (0.0-12.0) % Eosinophils % (0.00-5.0) % Basophils % (0.0-0.4) % Absolute Granulocytes (1.4-6.9) Basophils # (0-0.4) D-Dimer 358 (215-500) ng/mL Sodium 139 (137-145) mmol/L Potassium 3.9 (3.5-5.1) mmol/L Chloride 105 (98-107) mmol/L Carbon Dioxide 28 (22-30) mmol/L Anion Gap 10.0 (5-15) MEQ/L BUN 10 (7-17) mg/dL Creatinine 0.80 (0.52-1.04) mg/dL Estimated GFR > 60.0 ML/MIN Glucose 88 (74-106) mg/dL Calcium 9.5 (8.4-10.2) mg/dL Magnesium 2.1 (1.6-2.3) mg/dL Total Bilirubin 0.30 (0.2-1.3) mg/dL AST 24 (14-36) U/L ALT 21 (0-35) U/L Alkaline Phosphatase 75 (38-126) U/L NT-Pro-B Natriuret Pep 111 (0-900) pg/mL Serum Total Protein 6.4 (6.3-8.2) g/dL Albumin 3.9 (3.5-5.0) g/dL 04/20/21 Range/Units 11:27 WBC 6.3 (4.0-10.5) K/mm3 RBC 4.00 L (4.1-5.4) M/mm3 Hgb 11.7 L (12.0-16.0) gm/dl Hct 37.0 (35-47) % MCV 92.5 (78-100) fl MCH 29.3 (26-32) pg MCHC 31.6 L (32-36) g/dl RDW 13.3 (11.5-14.0) % Plt Count 230 (150-450) K/mm3 MPV 10.1 (7.5-11.0) fl Gran % 51.9 (36.0-66.0) % Eos # (Auto) 0.10 (0-0.5) Absolute Lymphs (auto) 2.37 (1.0-4.6) Absolute Monos (auto) 0.56 (0.0-1.3) Lymphocytes % 37.4 (24.0-44.0) % Monocytes % 8.8 (0.0-12.0) % Eosinophils % 1.6 (0.00-5.0) % Basophils % 0.3 (0.0-0.4) % Absolute Granulocytes 3.29 (1.4-6.9) Basophils # 0.02 (0-0.4) D-Dimer (215-500) ng/mL Sodium (137-145) mmol/L Potassium (3.5-5.1) mmol/L Chloride (98-107) mmol/L Carbon Dioxide (22-30) mmol/L Anion Gap (5-15) MEQ/L BUN (7-17) mg/dL Creatinine (0.52-1.04) mg/dL Estimated GFR ML/MIN Glucose (74-106) mg/dL Calcium (8.4-10.2) mg/dL Magnesium (1.6-2.3) mg/dL Total Bilirubin (0.2-1.3) mg/dL AST (14-36) U/L ALT (0-35) U/L Alkaline Phosphatase (38-126) U/L NT-Pro-B Natriuret Pep (0-900) pg/mL Serum Total Protein (6.3-8.2) g/dL Albumin (3.5-5.0) g/dL - Progress Progress: improved, re-examined Progress Note: 04/20/21 12:07 Chest x-ray shows no acute cardiopulmonary process Counseled pt/family regarding: lab results, diagnosis, need for follow-up, rad results - Departure Departure Disposition: Home Clinical Impression: Swelling of both lower extremities Condition: Stable Critical Care Time: No Referrals: KAUSHIK CABRERA MD [Primary Care Provider] - Additional Instructions: Increase your Lasix to 20 mg twice a day over the weekend. Call your primary care doctor's office today to make arrangements for a follow-up appointment for further management.
[2021-04-20] MEDS ORDERED: Lasix 40 MG/4 ML IV ONE (10:59)
[2021-04-20] MEDS ORDERED: Lasix 40 MG/4 ML ONE (11:10)
[2021-04-20 11:24] VITALS: BP 106/70; PULSE 73
[2021-04-20 11:25] VITALS: O2SAT 100
[2021-04-20 11:28] LABS: Absolute Neutrophil Ct (ANC) 3.29 (1.4-6.9); BASOPHIL % 0.3 % (0.0-0.4); Basophil (Absolute #) 0.02 (0-0.4); Eosinophil % 1.6 % (0.00-5.0); Hemoglobin 11.7 gm/dl (12.0-16.0); Lymphocyte (Absolute #) 2.37 (1.0-4.6); Lymphocytes % 37.4 % (24.0-44.0); Mean Cell Volume 92.5 fl (78-100); Mean Corpuscular Hemoglobin 29.3 pg (26-32); Mean Corpuscular Hgb Concent. 31.6 g/dl (32-36); Mean Platelet Volume 10.1 fl (7.5-11.0); Monocyte (Absolute #) 0.56 (0.0-1.3); Monocytes % 8.8 % (0.0-12.0); Neutrophil % 51.9 % (36.0-66.0); Platelet Count 230 K/mm3 (150-450); Red Cell Distribution Width 13.3 % (11.5-14.0); White Blood Count 6.3 K/mm3 (4.0-10.5)
[2021-04-20 11:58] LABS: ALBUMIN 3.9 g/dL (3.5-5.0); ALKALINE PHOSPHATASE 75 U/L (38-126); BLOOD UREA NITROGEN 10 mg/dL (7-17); CHLORIDE 105 mmol/L (98-107); Calcium 9.5 mg/dL (8.4-10.2); Carbon Dioxide 28 mmol/L (22-30); EST GLOMERULAR FILTRATION RATE > 60.0 ML/MIN; Glucose 88 mg/dL (74-106); Potassium 3.9 mmol/L (3.5-5.1); SGOT/AST 24 U/L (14-36); SGPT/ALT 21 U/L (0-35); SODIUM 139 mmol/L (137-145); Total Protein 6.4 g/dL (6.3-8.2)
--- NOTE | 2021-04-20 11:58 | XRAY ---
Indication: Short of breath. Comparison: September 28, 2019. Portable chest again demonstrates normal heart and lungs with incidental left base calcified granuloma. Bony thorax intact. No new/acute findings.
[2021-04-20 12:05] LABS: NT PRO BNP 111 pg/mL (0-900)
== END 2021-04-20 12:24 | disposition home or self-care (01) ==
LOC: ED 10:02
DX: M79.89 Other specified soft tissue disorders (principal); Z79.899 Other long term (current) drug therapy
CPT/HCPCS: 36415; 71045; 80053; 83735; 83880; 85025; 85379; 93041; 94760; 96374; 99284; J1940

== ENCOUNTER 2021-05-09 10:36 | Emergency (ER) | payer MEDICARE ==
[2021-05-09] MEDS ORDERED: Sodium Chloride 0.9% 1000 ML 1,000 ML IV SCH (11:00)
[2021-05-09 11:10] LABS: BASOPHIL % 0.5 % (0.0-0.4); Basophil (Absolute #) 0.03 (0-0.4); Eosinophil % 2.3 % (0.00-5.0); Eosinophil (Absolute #) 0.15 (0-0.5); Hemoglobin 12.5 gm/dl (12.0-16.0); Lymphocyte (Absolute #) 2.24 (1.0-4.6); Lymphocytes % 34.2 % (24.0-44.0); Mean Cell Volume 90.7 fl (78-100); Mean Corpuscular Hemoglobin 29.1 pg (26-32); Mean Corpuscular Hgb Concent. 32.1 g/dl (32-36); Monocyte (Absolute #) 0.63 (0.0-1.3); Monocytes % 9.6 % (0.0-12.0); Neutrophil % 53.4 % (36.0-66.0); Platelet Count 241 K/mm3 (150-450); Red Cell Distribution Width 13.4 % (11.5-14.0); White Blood Count 6.6 K/mm3 (4.0-10.5)
[2021-05-09 11:25] LABS: ACETAMINOPHEN < 10 ug/ml (10-30); ALBUMIN 3.8 g/dL (3.5-5.0); ALKALINE PHOSPHATASE 79 U/L (38-126); BLOOD UREA NITROGEN 10 mg/dL (7-17); CHLORIDE 105 mmol/L (98-107); Calcium 9.8 mg/dL (8.4-10.2); Carbon Dioxide 26 mmol/L (22-30); Creatinine 1 0.76 mg/dL (0.52-1.04); EST GLOMERULAR FILTRATION RATE > 60.0 ML/MIN; ETHYL ALCOHOL < 10 mg/dL (0-10); Glucose 125 mg/dL (74-106); MAGNESIUM 2.3 mg/dL (1.6-2.3); SALICYLATE < 1.0 mg/dL (2-20); SGOT/AST 24 U/L (14-36); SGPT/ALT 20 U/L (0-35); SODIUM 138 mmol/L (137-145); Total Protein 6.4 g/dL (6.3-8.2)
[2021-05-09 11:26] LABS: Potassium 4.1 mmol/L (3.5-5.1)
[2021-05-09 11:29] LABS: ANION GAP 11.1 MEQ/L (5-15)
--- NOTE | 2021-05-09 11:33 | XRAY ---
Indication: Altered mental status. Multiple contiguous axial images obtained through the head without contrast. Comparison: January 17, 2013. Normal appearing brain parenchyma, ventricles, and bony calvarium for patient's age. Visualized paranasal sinuses and mastoid air cells are clear. Impression: Continued normal CT head without contrast exam.
--- NOTE | 2021-05-09 11:35 | XRAY ---
Indication: Pneumonia. Comparison: April 20, 2021. Portable chest less inflated accentuating cardiopulmonary structures and crowding lung bases. No focal infiltrate, consolidation, or large effusion. Heart upper limits normal for AP portable technique. Impression: Nonacute underinflated chest.
--- NOTE | 2021-05-09 11:37 | ERPHSYRPT ---
- History of Present Illness Time Seen by Provider: 05/09/21 10:45 Source: patient Exam Limitations: no limitations Patient Subjective Stated Complaint: EMS states that the pt has an altered mental status that they believe is due to a possible UTI, pt admits to smoking meth yesterday Triage Nursing Assessment: Pt brought to the ER, bradycardic, rates head pain as 5/10, pulses normal, sleeping, denies abdominal pain, states urine is bright yellow like "Mountain Dew", A&O x3, doesn't appear to be in any distress Physician History: Patient is a 55-year-old female presents to our ED via EMS for evaluation of altered mental status that was observed this morning. Patient believes that she may have a urinary tract infection because her urine has been bright yellow. Patient states that she smoked meth yesterday. She currently complains of a headache rated 5 out of 10. No associated numbness tingling or weakness. No nausea or vomiting. No diaphoresis. Patient denies chest pain and abdominal pain. Patient is not dizzy. Patient answering questions appropriately. She does not appear to be in any distress. Patient voices no other complaints or concerns at this time. Timing/Duration: today Severity: moderate Modifying Factors: Improves With: other Associated Symptoms: No abdominal pain, No diaphoresis, No cough, No chest pain, No headaches, No seizure Allergies/Adverse Reactions: bupropion HCl [From Wellbutrin] Allergy (Mild, Verified 05/09/21 10:48) CVA SYMPTOMS citalopram hydrobromide [From Celexa] Allergy (Mild, Verified 05/09/21 10:48) UNKNOWN REACTION naproxen Allergy (Mild, Verified 05/09/21 10:48) VOMIT BLOOD sumatriptan [From Imitrex] Allergy (Mild, Verified 05/09/21 10:48) Headache ELEVATES BLOOD PRESSURE sumatriptan succinate [From Imitrex] Allergy (Mild, Verified 05/09/21 10:48) Headache ELEVATES BLOOD PRESSURE Home Medications: Albuterol Sulfate [Proair Hfa] 2 puffs IH TID PRN PRN 02/04/15 [History] Aripiprazole [Abilify] 30 mg PO HS 02/04/15 [History] Gabapentin [Neurontin] 800 mg PO TID 02/04/15 [History] Omeprazole 20 MG [Prilosec 20 mg] 40 mg PO DAILY 02/04/15 [History] Furosemide 20 mg [Lasix 20 mg] 20 mg PO DAILY 07/07/17 [History] Potassium Chloride 20 Meq [Klor-Con 20 MEQ] 20 meq PO DAILY 07/07/17 [History] Venlafaxine HCl [Venlafaxine HCl ER] 150 mg PO DAILY 07/07/17 [History] Phentermine HCl [Adipex-P] 37.5 mg PO DAILY 01/22/18 [History] Diclofenac Sodium Gel [Voltaren GEL] 100 gm TP TID PRN PRN 04/20/19 [History] Erenumab-Aooe [Aimovig Autoinjector] 1 dose IM UD 04/20/19 [History] Fluticasone Propionate [Flonase NASAL] 2 sprays NS BID 04/20/19 [History] Promethazine HCl 25 mg [Phenergan 25 mg] 12.5 mg PO Q4H PRN PRN 04/20/19 [History] Amitriptyline HCl 25 mg [Elavil 25 mg] 25 mg PO UD 05/09/21 [History] Diazepam 5 mg [Valium 5 MG] 5 mg PO BID 05/09/21 [History] Lasmiditan Succinate [Reyvow] 1 tab PO UD 05/09/21 [History] Tizanidine HCl 4 mg [Zanaflex 4 MG] 4 mg PO TID 05/09/21 [History] Tolterodine Tartrate 2 mg PO DAILY 05/09/21 [History] Hx Tetanus, Diphtheria Vaccination/Date Given: No Hx Influenza Vaccination/Date Given: No Hx Pneumococcal Vaccination/Date Given: No Travel Risk - International Travel Have you traveled outside of the country in past 3 weeks: No - Coronavirus Screening Are you exhibiting any of the following symptoms?: No Close contact with a COVID-19 positive Pt in past 14-21 Days: No - Vaccine Status Have you recieved a Covid-19 vaccination: No - Review of Systems Constitutional: No Symptoms, No Fever, No Chills Eyes: No Symptoms Ears, Nose, & Throat: No Symptoms Respiratory: No Symptoms, No Cough, No Dyspnea Cardiac: No Symptoms, No Chest Pain, No Edema, No Syncope Abdominal/Gastrointestinal: No Symptoms, No Abdominal Pain, No Nausea, No Vomiting, No Diarrhea Genitourinary Symptoms: No Symptoms, No Dysuria Musculoskeletal: No Symptoms, No Back Pain, No Neck Pain Skin: No Symptoms, No Rash Neurological: No Symptoms, No Dizziness, No Focal Weakness, No Sensory Changes Psychological: No Symptoms Endocrine: No Symptoms Hematologic/Lymphatic: No Symptoms Immunological/Allergic: No Symptoms All Other Systems: Reviewed and Negative - Past Medical History Pertinent Past Medical History: Yes Neurological History: No Pertinent History ENT History: No Pertinent History Cardiac History: No Pertinent History Respiratory History: Asthma, Bronchitis, Pneumonia Endocrine Medical History: No Pertinent History Musculoskeletal History: No Pertinent History GI Medical History: GERD, Ulcer History: No Pertinent History Psycho-Social History: Anxiety, Depression, Panic Disorder Female Reproductive Disorders: Fibroids Other Medical History: chronic back pain - Past Surgical History Past Surgical History: Yes Neuro Surgical History: No Pertinent History Cardiac: Cardiac Catheterization Respiratory: No Pertinent History Gastrointestinal: No Pertinent History Genitourinary: No Pertinent History Musculoskeletal: Joint Replacement Female Surgical History: Hysterectomy Other Surgical History: D&C, right elbow, tubes in ears, deviated septum - Social History Smoking Status: Current every day smoker How long have you smoked: 40 Exposure to second hand smoke: Yes Alcohol Use: None Drug Use: methamphetamines Patient Lives Alone: No Significant Family History: no pertinent family hx - Female History Hx Now: No - Nursing Vital Signs Nursing Vital Signs: Initial Vital Signs Temperature 97.6 F 05/09/21 10:38 Pulse Rate 59 L 05/09/21 10:38 Blood Pressure 117/80 05/09/21 10:38 O2 Sat by Pulse Oximetry 93 L 05/09/21 10:38 Pain Scale Pain Intensity 0 - Physical Exam General Appearance: no apparent distress, alert Eye Exam: PERRL/EOMI, eyes nml inspection Ears, Nose, Throat Exam: normal ENT inspection, TMs normal, pharynx normal, moist mucous membranes Neck Exam: normal inspection, non-tender, supple, full range of motion Respiratory Exam: normal breath sounds, lungs clear, No respiratory distress Cardiovascular Exam: regular rate/rhythm, normal heart sounds, normal peripheral pulses Gastrointestinal/Abdomen Exam: soft, normal bowel sounds, No tenderness, No mass Back Exam: normal inspection, normal range of motion, No CVA tenderness, No vertebral tenderness Extremity Exam: normal inspection, normal range of motion, pelvis stable Neurologic Exam: alert, oriented x 3, cooperative, normal mood/affect, sensation nml, No motor deficits Skin Exam: normal color, warm, dry, No rash Lymphatic Exam: No adenopathy SpO2 Interpretation: normal SpO2: 94 O2 Delivery: Room Air - Course Nursing assessment & vital signs reviewed: Yes EKG Interpreted by Me: RATE (56), Sinus Rhythm, NORMAL AXIS, NORMAL INTERVALS - Radiology Exams Chest X-ray Interpretation: Teleradiologist Report (Underinflated chest.) - CT Exams Head CT Interpretation: Tele-radiologist Report (Normal appearing brain parenchyma, ventricles, and bony calvarium for patient's age. Visualized paranasal sinuses and mastoid air cells are clear.) Other CT Interpretation: Tele-radiologist Report (CT angio head limited due to suboptimal contrast opacification minimal calcifications parasellar segments internal carotid arteries bilaterally. Remaining CT head with contrast exam is grossly negative) Ordered Tests: Active Orders 24 hr Category Date Time Status Staffing Clerk STAT Care 05/09/21 10:46 Active EKG-ER Only STAT Care 05/09/21 10:46 Active IV Insertion STAT Care 05/09/21 10:46 Active Pulse Oximetry (ED) STAT Care 05/09/21 10:46 Active CHEST 1 VIEW (PORTABLE) Stat Exams 05/09/21 10:46 Completed CTA HEAD W AND/OR WO CONTRAST [CT] Stat Exams 05/09/21 12:34 Completed HEAD WITHOUT CONTRAST [CT] Stat Exams 05/09/21 10:48 Completed ACETAMINOPHEN Stat Lab 05/09/21 11:00 Completed CBC W DIFF Stat Lab 05/09/21 11:00 Completed CMP Stat Lab 05/09/21 11:00 Completed ETHYL ALCOHOL Stat Lab 05/09/21 11:00 Completed MAGNESIUM Stat Lab 05/09/21 11:00 Completed SALICYLATE Stat Lab 05/09/21 11:00 Completed TROPONIN Q3H Lab 05/09/21 11:00 Completed TROPONIN Q3H Lab 05/09/21 14:00 Completed TROPONIN Q3H Lab 05/09/21 17:00 Ordered TROPONIN Q3H Lab 05/09/21 20:00 Ordered TROPONIN Q3H Lab 05/09/21 23:00 Ordered TSH [TSH, 3RD Generation] Stat Lab 05/09/21 11:00 Completed UA W/RFX UR CULTURE Stat Lab 05/09/21 11:37 Completed Urine Triage Profile Stat Lab 05/09/21 11:37 Completed Medication Summary Generic Name Dose Route Start Last Admin Trade Name Sheridan PRN Reason Stop Dose Admin Sodium Chloride 1,000 mls @ 100 mls/hr 05/09/21 11:00 Sodium Chloride 0.9% 1000 Ml IV 06/08/21 10:59 .Q10H [facility] Lab/Rad Data: Laboratory Result Diagrams 05/09/21 11:00 05/09/21 11:00 Laboratory Results 05/09/21 05/09/21 05/09/21 Range/Units 14:00 11:37 11:37 WBC (4.0-10.5) K/mm3 RBC (4.1-5.4) M/mm3 Hgb (12.0-16.0) gm/dl Hct (35-47) % MCV (78-100) fl MCH (26-32) pg MCHC (32-36) g/dl RDW (11.5-14.0) % Plt Count (150-450) K/mm3 MPV (7.5-11.0) fl Gran % (36.0-66.0) % Eos # (Auto) (0-0.5) Absolute Lymphs (auto) (1.0-4.6) Absolute Monos (auto) (0.0-1.3) Lymphocytes % (24.0-44.0) % Monocytes % (0.0-12.0) % Eosinophils % (0.00-5.0) % Basophils % (0.0-0.4) % Absolute Granulocytes (1.4-6.9) Basophils # (0-0.4) Sodium (137-145) mmol/L Potassium (3.5-5.1) mmol/L Chloride (98-107) mmol/L Carbon Dioxide (22-30) mmol/L Anion Gap (5-15) MEQ/L BUN (7-17) mg/dL Creatinine (0.52-1.04) mg/dL Estimated GFR ML/MIN Glucose (74-106) mg/dL Calcium (8.4-10.2) mg/dL Magnesium (1.6-2.3) mg/dL Total Bilirubin (0.2-1.3) mg/dL AST (14-36) U/L ALT (0-35) U/L Alkaline Phosphatase (38-126) U/L Troponin I < 0.012 (0.000-0.034) ng/mL Serum Total Protein (6.3-8.2) g/dL Albumin (3.5-5.0) g/dL TSH 3rd Generation (0.47-4.68) mIU/L Urine Color YELLOW (YELLOW) Urine Appearance CLOUDY (CLEAR) Urine pH 9.0 (5-6) Ur Specific [place] 1.005 (1.005-1.025) Urine Protein NEGATIVE (Negative) Urine Ketones NEGATIVE (NEGATIVE) Urine Blood NEGATIVE (0-5) Gall[place]/ul Urine Nitrite NEGATIVE (NEGATIVE) Urine Bilirubin NEGATIVE (NEGATIVE) Urine Urobilinogen NEGATIVE (0-1) mg/dL Ur Leukocyte Esterase NEGATIVE (NEGATIVE) Urine WBC (Auto) NONE (0-5) /HPF Urine RBC (Auto) NONE (0-2) /HPF U Epithel Cells (Auto) NONE (FEW) /HPF Urine Bacteria (Auto) NONE (NEGATIVE) /HPF Urine Culture Reflexed NO (NO) Urine Glucose NEGATIVE (NEGATIVE) mg/dL Salicylates (2-20) mg/dL Urine Opiates Level NEGATIVE (NEGATIVE) Ur Methadone NEGATIVE (NEGATIVE) Acetaminophen (10-30) ug/ml Urine Barbiturates NEGATIVE (NEGATIVE) Ur Phencyclidine (PCP) NEGATIVE (NEGATIVE) Urine Amphetamine POSITIVE (NEGATIVE) U Benzodiazepine Level NEGATIVE (NEGATIVE) Urine Cocaine NEGATIVE (NEGATIVE) Urine Marijuana (THC) NEGATIVE (NEGATIVE) Ethyl Alcohol (0-10) mg/dL 05/09/21 05/09/21 05/09/21 Range/Units 11:00 11:00 11:00 WBC (4.0-10.5) K/mm3 RBC (4.1-5.4) M/mm3 Hgb (12.0-16.0) gm/dl Hct (35-47) % MCV (78-100) fl MCH (26-32) pg MCHC (32-36) g/dl RDW (11.5-14.0) % Plt Count (150-450) K/mm3 MPV (7.5-11.0) fl Gran % (36.0-66.0) % Eos # (Auto) (0-0.5) Absolute Lymphs (auto) (1.0-4.6) Absolute Monos (auto) (0.0-1.3) Lymphocytes % (24.0-44.0) % Monocytes % (0.0-12.0) % Eosinophils % (0.00-5.0) % Basophils % (0.0-0.4) % Absolute Granulocytes (1.4-6.9) Basophils # (0-0.4) Sodium 138 (137-145) mmol/L Potassium 4.1 (3.5-5.1) mmol/L Chloride 105 (98-107) mmol/L Carbon Dioxide 26 (22-30) mmol/L Anion Gap 11.1 (5-15) MEQ/L BUN 10 (7-17) mg/dL Creatinine 0.76 (0.52-1.04) mg/dL Estimated GFR > 60.0 ML/MIN Glucose 125 H (74-106) mg/dL Calcium 9.8 (8.4-10.2) mg/dL Magnesium 2.3 (1.6-2.3) mg/dL Total Bilirubin 0.60 (0.2-1.3) mg/dL AST 24 (14-36) U/L ALT 20 (0-35) U/L Alkaline Phosphatase 79 (38-126) U/L Troponin I < 0.012 (0.000-0.034) ng/mL Serum Total Protein 6.4 (6.3-8.2) g/dL Albumin 3.8 (3.5-5.0) g/dL TSH 3rd Generation 1.210 (0.47-4.68) mIU/L Urine Color (YELLOW) Urine Appearance (CLEAR) Urine pH (5-6) Ur Specific [place] (1.005-1.025) Urine Protein (Negative) Urine Ketones (NEGATIVE) Urine Blood (0-5) Gallito/ul Urine Nitrite (NEGATIVE) Urine Bilirubin (NEGATIVE) Urine Urobilinogen (0-1) mg/dL Ur Leukocyte Esterase (NEGATIVE) Urine WBC (Auto) (0-5) /HPF Urine RBC (Auto) (0-2) /HPF U Epithel Cells (Auto) (FEW) /HPF Urine Bacteria (Auto) (NEGATIVE) /HPF Urine Culture Reflexed (NO) Urine Glucose (NEGATIVE) mg/dL Salicylates < 1.0 L (2-20) mg/dL Urine Opiates Level (NEGATIVE) Ur Methadone (NEGATIVE) Acetaminophen < 10 L (10-30) ug/ml Urine Barbiturates (NEGATIVE) Ur Phencyclidine (PCP) (NEGATIVE) Urine Amphetamine (NEGATIVE) U Benzodiazepine Level (NEGATIVE) Urine Cocaine (NEGATIVE) Urine Marijuana (THC) (NEGATIVE) Ethyl Alcohol < 10 (0-10) mg/dL 05/09/21 Range/Units 11:00 WBC 6.6 (4.0-10.5) K/mm3 RBC 4.30 (4.1-5.4) M/mm3 Hgb 12.5 (12.0-16.0) gm/dl Hct 39.0 (35-47) % MCV 90.7 (78-100) fl MCH 29.1 (26-32) pg MCHC 32.1 (32-36) g/dl RDW 13.4 (11.5-14.0) % Plt Count 241 (150-450) K/mm3 MPV 10.0 (7.5-11.0) fl Gran % 53.4 (36.0-66.0) % Eos # (Auto) 0.15 (0-0.5) Absolute Lymphs (auto) 2.24 (1.0-4.6) Absolute Monos (auto) 0.63 (0.0-1.3) Lymphocytes % 34.2 (24.0-44.0) % Monocytes % 9.6 (0.0-12.0) % Eosinophils % 2.3 (0.00-5.0) % Basophils % 0.5 (0.0-0.4) % Absolute Granulocytes 3.50 (1.4-6.9) Basophils # 0.03 (0-0.4) Sodium (137-145) mmol/L Potassium (3.5-5.1) mmol/L Chloride (98-107) mmol/L Carbon Dioxide (22-30) mmol/L Anion Gap (5-15) MEQ/L BUN (7-17) mg/dL Creatinine (0.52-1.04) mg/dL Estimated GFR ML/MIN Glucose (74-106) mg/dL Calcium (8.4-10.2) mg/dL Magnesium (1.6-2.3) mg/dL Total Bilirubin (0.2-1.3) mg/dL AST (14-36) U/L ALT (0-35) U/L Alkaline Phosphatase (38-126) U/L Troponin I (0.000-0.034) ng/mL Serum Total Protein (6.3-8.2) g/dL Albumin (3.5-5.0) g/dL TSH 3rd Generation (0.47-4.68) mIU/L Urine Color (YELLOW) Urine Appearance (CLEAR) Urine pH (5-6) Ur Specific [place] (1.005-1.025) Urine Protein (Negative) Urine Ketones (NEGATIVE) Urine Blood (0-5) Gallito/ul Urine Nitrite (NEGATIVE) Urine Bilirubin (NEGATIVE) Urine Urobilinogen (0-1) mg/dL Ur Leukocyte Esterase (NEGATIVE) Urine WBC (Auto) (0-5) /HPF Urine RBC (Auto) (0-2) /HPF U Epithel Cells (Auto) (FEW) /HPF Urine Bacteria (Auto) (NEGATIVE) /HPF Urine Culture Reflexed (NO) Urine Glucose (NEGATIVE) mg/dL Salicylates (2-20) mg/dL Urine Opiates Level (NEGATIVE) Ur Methadone (NEGATIVE) Acetaminophen (10-30) ug/ml Urine Barbiturates (NEGATIVE) Ur Phencyclidine (PCP) (NEGATIVE) Urine Amphetamine (NEGATIVE) U Benzodiazepine Level (NEGATIVE) Urine Cocaine (NEGATIVE) Urine Marijuana (THC) (NEGATIVE) Ethyl Alcohol (0-10) mg/dL - Progress Progress: improved Progress Note: Case discussed with Dr. Hernandez. Patient will need a neurologist to follow her. I spoke to Dr. Beatty our patient's primary care doctor who agrees however he only works at [facility] and advised transferring over to [facility]. Case discussed with Dr. Gusman of [facility] who accepts transfer. Plan of care discussed with patient. She agrees to transfer to [facility] for further evaluation and treatment. Teleneuro advised aspirin however patient is allergic to NSAIDs. 05/09/21 15:38 05/09/21 16:05 During patient's time in our ED patient symptoms gradually improved. She became more responsive less lethargic. However she did have 3 bouts of urinary incontinence in our ED. Discussed with Dr.: N.Magali Will see patient in: office Counseled pt/family regarding: lab results, diagnosis, rad results - Departure Departure Disposition: Transfer Clinical Impression: Altered mental status, Amphetamine use disorder, moderate, Incontinent of urine Condition: Stable Critical Care Time: No Referrals: KAUSHIK CABRERA MD [Primary Care Provider] -
[2021-05-09 12:24] LABS: Appearance CLOUDY (CLEAR); Bilirubin NEGATIVE (NEGATIVE); Blood NEGATIVE Ery/ul (0-5); Glucose NEGATIVE (NEGATIVE); Ketones NEGATIVE (NEGATIVE); Leukocyte Esterase NEGATIVE (NEGATIVE); Nitrite NEGATIVE (NEGATIVE); Protein,Urine Dip NEGATIVE (Negative); Specific Gravity 1.005 (1.005-1.025); Urobilinogen NEGATIVE mg/dL (0-1)
--- NOTE | 2021-05-09 12:45 | XRAY ---
Indication: Stroke. Acute mental status change. Smoking meth one day earlier. Conventional contrast enhanced CTA head performed using 100 cc Isovue 370 contrast. Two-dimensional sagittal and coronal reformatted images obtained. Comparison: None There is suboptimal opacification for unknown reason. Distal internal carotid arteries are bilaterally symmetric with minimal calcifications involving the parasellar segments. No critical stenosis, obstruction, or AV malformation. Normal carotid terminus with normal branching A1 and M1 segments bilaterally. More distal anterior cerebral, middle cerebral, anterior communicating, and posterior communicating arteries are normal in CTA appearance. Anatomic variant for origin of the posterior cerebral arteries bilaterally. Basilar artery normal in course and caliber with normal branching superior cerebellar arteries. Whole brain is negative for abnormal enhancing intra-or extra-axial mass. Impression: 1. Limited CTA head due to suboptimal contrast opacification. 2. Minimal calcifications parasellar segments internal carotid arteries bilaterally. 3. Remaining CTA head with contrast exam is grossly negative.
[2021-05-09 12:57] LABS: Amphetamine,Urine POSITIVE (NEGATIVE); Barbiturate,Urine NEGATIVE (NEGATIVE); Benzodiazepine,Urine NEGATIVE (NEGATIVE); Cocaine,Urine NEGATIVE (NEGATIVE); Methadone,Urine NEGATIVE (NEGATIVE); Opiate,Urine NEGATIVE (NEGATIVE); PCP,Urine NEGATIVE (NEGATIVE); THC,Urine NEGATIVE (NEGATIVE)
[2021-05-09 15:42] VITALS: BP 117/68
[2021-05-09 15:47] VITALS: PULSE 53
[2021-05-09 15:53] VITALS: O2SAT 94
== END 2021-05-09 16:05 | disposition short-term general hospital (02) ==
LOC: ED 10:36
DX: F15.90 Other stimulant use, unspecified, uncomplicated (principal); R32 Unspecified urinary incontinence
CPT/HCPCS: 36415; 70450; 70496; 71045; 80053; 80307; 81001; 83735; 84443; 84484; 85025; 93005; 93041; 94760; 99284; G0480; Q3014

== ENCOUNTER 2021-08-30 13:41 | Day surgery (SDC) | payer MEDICARE ==
[2013-09-08 16:10] VITALS: BP 136/82
[2021-08-30] MEDS ORDERED: Sodium Chloride 0.9(Preservative Free) 10 ML IJ ONE (13:42)
[2021-08-30] MEDS ORDERED: Depo-Medrol 80 MG/ML IM ONE (13:42)
[2021-08-30] MEDS ORDERED: DIPRIVAN 200 MG/20 ML IV ONE (14:58)
--- NOTE | 2021-08-30 16:31 | XRAY ---
23 seconds of fluoroscopy was used in surgery for a left L3-L5 transforaminal BERENICE.
--- NOTE | 2021-08-30 16:31 | XRAY ---
Indication: Left L3-L5 transforaminal BERENICE. Intraoperative fluoroscopy provided for 23 seconds. 4 digital spot image submitted for interpretation demonstrates posterior needle tips projecting over the expected left L3 and L4 nerve roots. Small amount of contrast injected for needle tip placement. Correlate with intraoperative findings/report.
[2021-08-30] MEDS ORDERED: Lactated Ringers 1,000 ML IV ONE (17:29)
== END 2021-08-30 15:23 | disposition home or self-care (01) ==
LOC: SDC-PAIN 13:41
PROVIDERS: ATTEND Psychiatry & Neurology Pain Medicine
DX: M54.16 Radiculopathy, lumbar region (principal); Z79.899 Other long term (current) drug therapy
CPT/HCPCS: 64483; 64484; 72100; 77003; J1040; J2704; Q9966

== ENCOUNTER 2022-07-04 15:53 | Emergency (ER) | payer MEDICARE ==
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
[2022-07-04 17:03] VITALS: BP 151/86
[2022-07-04 17:51] VITALS: PULSE 76; O2SAT 98
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
== END 2022-07-04 17:54 | disposition home or self-care (01) ==
LOC: ED 15:53
DX: S00.12XA Contusion of left eyelid and periocular area, initial encounter (principal); S00.11XA Contusion of right eyelid and periocular area, initial encounter; S00.83XA Contusion of other part of head, initial encounter; Y00.XXXA Assault by blunt object, initial encounter; R51.9 Headache, unspecified; R42 Dizziness and giddiness; H53.8 Other visual disturbances; Z79.899 Other long term (current) drug therapy; Z28.310 Unvaccinated for COVID-19
CPT/HCPCS: 70450; 70486; 72125; 99283

== ENCOUNTER 2022-11-14 12:20 | Day surgery (SDC) | payer MEDICARE ==
[2013-09-08 16:10] VITALS: BP 136/82
[2022-11-14] MEDS ORDERED: Depo-Medrol 40 MG/ML IM ONE (12:21)
[2022-11-14] MEDS ORDERED: BUPIVACAINE 0.5% VIAL IJ ONE (12:21)
[2022-11-14] MEDS ORDERED: LIDOCAINE HCL 1% 50 MG/5 ML VL PF IJ ONE (12:21)
[2022-11-14] MEDS ORDERED: Sodium Chloride 0.9(Preservative Free) 10 ML IJ ONE (12:21)
[2022-11-14] MEDS ORDERED: Versed 2 MG/2 ML Injection ONE (12:46)
[2022-11-14] MEDS ORDERED: DIPRIVAN 200 MG/20 ML IV ONE (14:20)
[2022-11-14] MEDS ORDERED: Lactated Ringers 1,000 ML IV ONE (14:59)
--- NOTE | 2022-11-14 16:42 | XRAY ---
Indication: Lumbar BERENICE. Intraoperative fluoroscopy provided for 10 seconds. 4 digital spot images submitted for interpretation demonstrates posterior needle tip projecting posterior to last lumbar segment. Small amount of contrast injected for needle tip placement. Correlate with intraoperative findings/report.
--- NOTE | 2022-11-14 16:44 | XRAY ---
Indication: Left hip injection. Intraoperative fluoroscopy provided for 11 seconds. Single digital spot image obtained prone submitted for interpretation demonstrates needle tip lateral to the left femur neck. Small amount of contrast injected for needle tip placement. Correlate with intraoperative findings/report.
--- NOTE | 2022-11-14 17:22 | XRAY ---
10 seconds of fluoroscopy was used in surgery for a lumbar BERENICE.
--- NOTE | 2022-11-14 17:22 | XRAY ---
11 seconds of fluoroscopy was used in surgery for a left hip intra-articular injection.
== END 2022-11-14 14:44 | disposition home or self-care (01) ==
LOC: SDC-PAIN 12:20
PROVIDERS: ATTEND Psychiatry & Neurology Pain Medicine
DX: M54.16 Radiculopathy, lumbar region (principal); M16.12 Unilateral primary osteoarthritis, left hip; Z79.899 Other long term (current) drug therapy
CPT/HCPCS: 20610; 62323; 72100; 73501; 77002; 77003; J1030; J2001; J2250; J2704; Q9966

== ENCOUNTER 2023-03-20 11:20 | Day surgery (SDC) | payer MEDICARE ==
[2013-09-08 16:10] VITALS: BP 136/82
[2023-03-20] MEDS ORDERED: BUPIVACAINE 0.5% VIAL IJ ONE (11:21)
[2023-03-20] MEDS ORDERED: Depo-Medrol 40 MG/ML IM ONE (11:21)
[2023-03-20] MEDS ORDERED: Pepcid 20 MG VIAL IV ONE (12:15)
[2023-03-20] MEDS ORDERED: Zofran 4 MG/2 ML VIAL ONE (12:15)
[2023-03-20] MEDS ORDERED: Reglan 10 MG/2 ML ONE (12:15)
[2023-03-20] MEDS ORDERED: DIPRIVAN 200 MG/20 ML IV ONE (13:25)
[2023-03-20] MEDS ORDERED: Lactated Ringers 1,000 ML IV ONE (14:21)
--- NOTE | 2023-03-20 14:30 | XRAY ---
Indication: Left hip and greater trochanter bursa injection Intraoperative fluoroscopy provider 21 seconds. 2 digital spot image submitted for interpretation demonstrates needle tip projecting lateral to the left femur neck. Second needle tip lateral to the greater trochanter. Small amount of contrast injected for both needle tip placement. Correlate with intraoperative findings/report.
--- NOTE | 2023-03-20 15:12 | XRAY ---
21 seconds of fluoroscopy was used in surgery for a left greater trochanteric bursa and left intra-articular hip injection.
== END 2023-03-20 14:05 | disposition home or self-care (01) ==
LOC: SDC-PAIN 11:20
PROVIDERS: ATTEND Psychiatry & Neurology Pain Medicine
DX: M16.12 Unilateral primary osteoarthritis, left hip (principal); M70.62 Trochanteric bursitis, left hip
CPT/HCPCS: 20610; 73502; 77002; J1030; J2405; J2704; Q9966

== ENCOUNTER 2024-08-07 22:49 | Emergency (ER) | payer MEDICARE ==
--- NOTE | 2024-08-07 23:04 | ERPHSYRPT ---
- History of Present Illness Time Seen by Provider: 08/07/24 23:03 Source: patient, family Exam Limitations: no limitations Physician History: This is a 59-year-old white female patient of Dr. Anders who arrives by private vehicle brought into the emergency department by her son because of symptoms of shortness of breath for the last 2 to 3 weeks and associated cough of thick white sputum. Patient stated that she quit smoking approximate 3 weeks ago but started back up again this past weekend because she was camping. Patient has sternal pain with coughing. Patient has not had a fever. She has had no nausea vomiting or diarrhea symptoms. Patient has history gastroesophageal reflux disease, anxiety and panic disorder, peptic ulcer disease, chronic low back pain, asthma, bronchitis and recurrent pneumonias. Timing/Duration: week(s) (Symptoms present for approximately 2 to 3 weeks), worse (Symptoms worse today) Activities at Onset: none Severity of Dyspnea-Max: moderate Severity of Dyspnea-Current: mild Possible Cause: frequent episodes, chronic episodes Modifying Factors: Improves With: coughing, deep breath Associated Symptoms: cough, chest pain/discomfort (Sternum anteriorly with coughing only), wheezing, productive cough (Thick white sputum) Allergies/Adverse Reactions: bupropion HCl [From Wellbutrin] Allergy (Mild, Verified 08/07/24 23:20) CVA SYMPTOMS citalopram hydrobromide [From Celexa] Allergy (Mild, Verified 08/07/24 23:20) UNKNOWN REACTION naproxen Allergy (Mild, Verified 08/07/24 23:20) VOMIT BLOOD sumatriptan [From Imitrex] Allergy (Mild, Verified 08/07/24 23:20) Headache ELEVATES BLOOD PRESSURE sumatriptan succinate [From Imitrex] Allergy (Mild, Verified 08/07/24 23:20) Headache ELEVATES BLOOD PRESSURE Home Medications: Albuterol Sulfate [Proair Hfa] 2 puffs IH TID PRN PRN 02/04/15 [History] Promethazine HCl 25 mg [Phenergan 25 mg] 12.5 mg PO Q4H PRN PRN 04/20/19 [History] Latanoprost 2.5 ml DROPS DAILY 08/07/24 [History] Lisinopril 5 mg [Zestril 5 MG] 5 mg PO DAILY 08/07/24 [History] Lurasidone HCl [Latuda] 120 mg PO DAILY 08/07/24 [History] Ondansetron [Ondansetron Odt ] 4 mg PO DAILY PRN PRN 08/07/24 [History] Rimegepant Sulfate [Nurtec Odt] 75 mg PO DAILY 08/07/24 [History] Hx Tetanus, Diphtheria Vaccination/Date Given: Yes Hx Influenza Vaccination/Date Given: No Hx Pneumococcal Vaccination/Date Given: Yes Travel Risk - International Travel Have you traveled outside of the country in past 3 weeks: No - Emerging Infectious Disease Are you exhibiting symptoms associated with any current EIDs: Yes Symptoms: Cough: New Onset - Review of Systems Constitutional: No Symptoms Eyes: No Symptoms Ears, Nose, & Throat: No Symptoms Respiratory: Cough, Dyspnea, Wheezing Cardiac: No Symptoms Abdominal/Gastrointestinal: No Symptoms Genitourinary Symptoms: No Symptoms Musculoskeletal: No Symptoms Skin: No Symptoms Neurological: No Symptoms Psychological: No Symptoms Endocrine: No Symptoms Hematologic/Lymphatic: No Symptoms Immunological/Allergic: No Symptoms All Other Systems: Reviewed and Negative - Past Medical History Pertinent Past Medical History: Yes Neurological History: No Pertinent History ENT History: No Pertinent History Cardiac History: No Pertinent History Respiratory History: Asthma, Bronchitis, Pneumonia Endocrine Medical History: No Pertinent History Musculoskeletal History: No Pertinent History GI Medical History: GERD, Ulcer History: No Pertinent History Psycho-Social History: Anxiety, Depression, Panic Disorder Female Reproductive Disorders: Fibroids Other Medical History: chronic back pain - Past Surgical History Past Surgical History: Yes Neuro Surgical History: No Pertinent History Cardiac: Cardiac Catheterization Respiratory: No Pertinent History Gastrointestinal: No Pertinent History Genitourinary: No Pertinent History Musculoskeletal: Joint Replacement Female Surgical History: Hysterectomy Other Surgical History: D&C, right elbow, tubes in ears, deviated septum Significant Family History: no pertinent family hx - Social History Smoking Status: Former smoker How long have you smoked: 40 Exposure to second hand smoke: Yes Alcohol Use: None Drug Use: none Patient Lives Alone: No - Nursing Vital Signs Nursing Vital Signs: Initial Vital Signs Temperature 97.8 F 08/07/24 22:51 Pulse Rate 66 08/07/24 22:51 Respiratory Rate 97 H 08/07/24 22:51 Blood Pressure 98/72 08/07/24 22:51 O2 Sat by Pulse Oximetry 97 08/07/24 22:51 Pain Scale Pain Intensity 8 - Physical Exam General Appearance: no apparent distress, alert, anxiety, thin Eye Exam: PERRL/EOMI, eyes nml inspection Ears, Nose, Throat Exam: hearing grossly normal, normal ENT inspection, normal pharynx Neck Exam: normal inspection, non-tender, supple, full range of motion Respiratory Exam: chest tenderness (Only when coughing midsternal region anterior), airway intact, rhonchi (Mild bilateral), No respiratory distress, No wheezing Cardiovascular/Chest Exam: normal heart sounds, regular rate/rhythm Abdominal/Gastrointestinal Exam: soft, normal bowel sounds, No tenderness Rectal Exam: not done Extremity Exam: non-tender, normal range of motion, normal inspection, no calf tenderness, no pedal edema, pelvis stable Neurologic Exam: alert, oriented x 3, cooperative, 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 nml as tested, nml cerebellar function, nml station & gait, sensation nml Skin Exam: normal color, warm, dry Lymphatic Exam: No adenopathy SpO2 Interpretation: normal O2 Delivery: Room Air - Course Nursing assessment & vital signs reviewed: Yes Ordered Tests: Active Orders 24 hr Category Date Time Status EKG-ER Only STAT Care 08/07/24 23:18 Active IV Insertion STAT Care 08/07/24 23:18 Active Pulse Oximetry (ED) STAT Care 08/07/24 23:18 Active CHEST 1 VIEW (PORTABLE) Stat Exams 08/07/24 23:18 Taken BLOOD CULTURE Stat Lab 08/07/24 23:50 Received CBC W DIFF Stat Lab 08/07/24 22:55 Completed CMP Stat Lab 08/07/24 22:55 Completed CULTURE,SPUTUM Stat Lab 08/07/24 23:25 Received D-DIMER QUANTITATIVE Stat Lab 08/07/24 22:55 Completed NT PRO BNPII Stat Lab 08/07/24 22:55 Completed TROPONIN Q4H Lab 08/07/24 22:55 Completed TROPONIN Q4H Lab 08/08/24 03:30 Ordered TROPONIN Q4H Lab 08/08/24 07:30 Ordered Respiratory Therapy Assessment DAILY RT 08/07/24 23:41 Active Medication Summary Discontinued Medications Generic Name Dose Route Start Last Admin Trade Name Freq PRN Reason Stop Dose Admin Hydrocodone Bitart/Acetaminophen 10 ml 08/07/24 23:50 08/08/24 00:10 Hydrocodone/Acetaminophen 5 Ml Udcup PO 08/07/24 23:51 10 ml STAT STA Administration Hydrocodone Bitart/Acetaminophen Confirm 08/08/24 00:06 Hydrocodone/Acetaminophen 5 Ml Udcup Administered 08/08/24 00:07 Dose 10 ml .ROUTE .STK-MED ONE Albuterol/Ipratropium 3 ml 08/07/24 23:42 08/07/24 23:57 Ipratropium/Albuterol Sulfate 3 Ml Ampul.Neb IH 08/07/24 23:43 3 ml STAT ONE Administration Albuterol/Ipratropium Confirm 08/07/24 23:43 Ipratropium/Albuterol Sulfate 3 Ml Ampul.Neb Administered 08/07/24 23:44 Dose 3 ml IH .STK-MED ONE Methylprednisolone Sodium 0 mg 08/07/24 23:50 08/08/24 00:10 Succinate 125 mg/ Sterile IV 08/07/24 23:51 125 mg Water 2 ml STAT ONE Administration Methylprednisolone Sodium Succinate Confirm 08/08/24 00:06 Methylprednis Sod Succ 125 Mg/2 Ml Vial Administered 08/08/24 00:07 Dose 125 mg .ROUTE .STK-MED ONE Ondansetron HCl 4 mg 08/08/24 00:14 08/08/24 00:16 Ondansetron Hcl 4 Mg/2 Ml Vial IV 08/08/24 00:15 4 mg STAT ONE Administration Ondansetron HCl Confirm 08/08/24 00:16 Ondansetron Hcl 4 Mg/2 Ml Vial Administered 08/08/24 00:17 Dose 4 mg .ROUTE .STK-MED ONE Sterile Water Confirm 08/08/24 00:06 Water For Injection,Sterile 10 Ml Vial Administered 08/08/24 00:07 Dose 10 ml IJ .STK-MED ONE Lab/Rad Data: Laboratory Result Diagrams 08/07/24 22:55 08/07/24 22:55 Laboratory Results 08/07/24 08/07/24 08/07/24 Range/Units 23:50 22:55 22:55 WBC (3.98-10.04) x10^3/uL RBC (3.93-5.22) x10^6/uL Hgb (11.2-15.7) g/dL Hct (34.1-44.9) % MCV (79.4-94.8) fL MCH (25.6-32.2) pg MCHC (32.2-35.5) g/dL RDW (11.7-14.4) % Plt Count (182-369) x10^3/uL MPV (9.4-12.3) fL Gran % (34.0-71.1) % Immature Gran % (Auto) (0.001-0.429) % Nucleat RBC Rel Count (0.00-0.2) % Eos # (Auto) (0.04-0.36) x10^3/uL Immature Gran # (Auto) (0.001-0.031) x10^3u/L Absolute Lymphs (auto) (1.18-3.74) x10^3/uL Absolute Monos (auto) (0.24-0.86) x10^3/uL Absolute Nucleated RBC (0.00-0.012) x10^3u/L Lymphocytes % (19.3-51.7) % Monocytes % (4.7-12.5) % Eosinophils % (0.7-5.8) % Basophils % (0.1-1.2) % Absolute Granulocytes (1.56-6.13) x10^3/uL Basophils # (0.01-0.08) x10^3/uL D-Dimer 0.47 (0.0-0.50) mg/L Sodium (135-145) mmol/L Potassium (3.5-5.1) mmol/L Chloride (98-107) mmol/L Carbon Dioxide (22-30) mmol/L Anion Gap (5-15) MEQ/L BUN (7-17) mg/dL Creatinine (0.52-1.04) mg/dL Estimated GFR ML/MIN Glucose (74-106) mg/dL Calcium (8.4-10.2) mg/dL Total Bilirubin (0.2-1.3) mg/dL AST (14-36) U/L ALT (0-35) U/L Alkaline Phosphatase (38-126) U/L Troponin I < 0.012 (0.000-0.033) ng/mL NT-Pro-B Natriuret Pep (<300) pg/mL Serum Total Protein (6.3-8.2) g/dL Albumin (3.5-5.0) g/dL Influenza Type A Ag NEGATIVE (NEGATIVE) Influenza Type B Ag NEGATIVE (NEGATIVE) RSV (PCR) NEGATIVE (NEGATIVE) SARS-CoV-2 (PCR) NEGATIVE (NEGATIVE) 08/07/24 08/07/24 Range/Units 22:55 22:55 WBC 9.2 (3.98-10.04) x10^3/uL RBC 4.07 (3.93-5.22) x10^6/uL Hgb 12.1 (11.2-15.7) g/dL Hct 36.0 (34.1-44.9) % MCV 88.5 (79.4-94.8) fL MCH 29.7 (25.6-32.2) pg MCHC 33.6 (32.2-35.5) g/dL RDW 12.3 (11.7-14.4) % Plt Count 255 (182-369) x10^3/uL MPV 10.2 (9.4-12.3) fL Gran % 62.9 (34.0-71.1) % Immature Gran % (Auto) 0.3 (0.001-0.429) % Nucleat RBC Rel Count 0.0 (0.00-0.2) % Eos # (Auto) 0.11 (0.04-0.36) x10^3/uL Immature Gran # (Auto) 0.03 (0.001-0.031) x10^3u/L Absolute Lymphs (auto) 2.29 (1.18-3.74) x10^3/uL Absolute Monos (auto) 0.94 H (0.24-0.86) x10^3/uL Absolute Nucleated RBC 0.00 (0.00-0.012) x10^3u/L Lymphocytes % 25.0 (19.3-51.7) % Monocytes % 10.3 (4.7-12.5) % Eosinophils % 1.2 (0.7-5.8) % Basophils % 0.3 (0.1-1.2) % Absolute Granulocytes 5.75 (1.56-6.13) x10^3/uL Basophils # 0.03 (0.01-0.08) x10^3/uL D-Dimer (0.0-0.50) mg/L Sodium 136 (135-145) mmol/L Potassium 3.4 L (3.5-5.1) mmol/L Chloride 102 (98-107) mmol/L Carbon Dioxide 24 (22-30) mmol/L Anion Gap 12.9 (5-15) MEQ/L BUN 9 (7-17) mg/dL Creatinine 0.90 (0.52-1.04) mg/dL Estimated GFR 73.6 ML/MIN Glucose 131 H (74-106) mg/dL Calcium 9.1 (8.4-10.2) mg/dL Total Bilirubin 0.40 (0.2-1.3) mg/dL AST 24 (14-36) U/L ALT 18 (0-35) U/L Alkaline Phosphatase 60 (38-126) U/L Troponin I (0.000-0.033) ng/mL NT-Pro-B Natriuret Pep 43.5 (<300) pg/mL Serum Total Protein 6.9 (6.3-8.2) g/dL Albumin 3.9 (3.5-5.0) g/dL Influenza Type A Ag (NEGATIVE) Influenza Type B Ag (NEGATIVE) RSV (PCR) (NEGATIVE) SARS-CoV-2 (PCR) (NEGATIVE) - Progress Progress: improved, re-examined Air Movement: fair Progress Note: 08/07/24 23:48 My medical decision making and the assignment of moderate complexity to this patient's medical issue today is based on review of the patient's past medical history, review the patient's medication list, reviewed patient drug allergy list, history present illness and physical findings on examination. The workup in this patient clued placement of intravenous line, infusion of Solu-Medrol intravenously, oral hydrocodone/acetaminophen elixir to help suppress cough, respiratory therapy evaluation and nebulizer treatment, CBC, CMP, BNP, troponin level, chest x-ray, viral swabs. Differential diagnosis includes but is not limited to pneumonia, COPD exacerbation, CHF exacerbation, myocardial infarction, arrhythmia I interpreted the preliminary chest x-ray report. There is no evidence of any acute, cardiopulmonary process. No obvious infiltrate present 08/08/24 01:11 I interpreted the patient's laboratory data results. Based on the laboratory data results, there are no acute, emergent medical issues. Blood Culture(s) Obtained: Yes Antibiotics given: Yes Counseled pt/family regarding: lab results, diagnosis, need for follow-up, rad results Medical Desision Making - Diagnostic Testing Diagnostic test were ordered, analyzed, and reviewed by me: Yes Radiological Interpretation: Interpreted by me - Risk of complications The pt has a mod risk of morbidity or mortality based on: Need for prescription drug management - Departure Departure Disposition: Home Clinical Impression: COPD exacerbation Condition: Stable Critical Care Time: No Referrals: LY ANDERS [NON-STAFF PHY W/O PRIVILEGES] - Follow up/PCP as directed Instructions: Chronic Obstructive Pulmonary Disease Additional Instructions: Avoid exposure to any type of smoke. Drink plenty of fluids. Take your steroids and other medication as prescribed. Call your primary care provider on 08/10/2024 to make arrangement for follow-up appointment for further evaluation management Prescriptions: Prednisone 10 mg [Deltasone 10 mg] 10 mg PO TID #12 tablet Hydrocodone/Acetaminophen [Hydrocodone-Acetamn 7.5-325/15] 10 ml PO Q8H PRN #60 ml MDD 30 ml PRN Reason: Cough
[2024-08-07 23:05] VITALS: TEMP 97.8
[2024-08-07 23:31] LABS: Absolute Neutrophil Ct (ANC) 5.75 x10^3/uL (1.56-6.13); BASOPHIL % 0.3 % (0.1-1.2); Basophil (Absolute #) 0.03 x10^3/uL (0.01-0.08); Eosinophil % 1.2 % (0.7-5.8); Eosinophil (Absolute #) 0.11 x10^3/uL (0.04-0.36); Hemoglobin 12.1 g/dL (11.2-15.7); IMMATURE GRAN # 0.03 x10^3u/L (0.001-0.031); IMMATURE GRAN % 0.3 % (0.001-0.429); Lymphocyte (Absolute #) 2.29 x10^3/uL (1.18-3.74); Mean Cell Volume 88.5 fL (79.4-94.8); Mean Corpuscular Hemoglobin 29.7 pg (25.6-32.2); Mean Corpuscular Hgb Concent. 33.6 g/dL (32.2-35.5); Mean Platelet Volume 10.2 fL (9.4-12.3); Monocyte (Absolute #) 0.94 x10^3/uL (0.24-0.86); Monocytes % 10.3 % (4.7-12.5); Neutrophil % 62.9 % (34.0-71.1); Platelet Count 255 x10^3/uL (182-369); Red Blood Count 4.07 x10^6/uL (3.93-5.22); Red Cell Distribution Width 12.3 % (11.7-14.4); White Blood Count 9.2 x10^3/uL (3.98-10.04)
[2024-08-07] MEDS ORDERED: DUONEB 0.5-3 MG/3 ml Neb IH ONE (23:43)
[2024-08-07] MEDS: DUONEB 0.5-3 MG/3 ml Neb IH ONE (23:57)
[2024-08-07 23:59] LABS: ALBUMIN 3.9 g/dL (3.5-5.0); ANION GAP 12.9 MEQ/L (5-15); BILIRUBIN,TOTAL 0.4 mg/dL (0.2-1.3); Calcium 9.1 mg/dL (8.4-10.2); Creatinine 1 0.9 mg/dL (0.52-1.04); EST GLOMERULAR FILTRATION RATE 73.6 ML/MIN; NT PRO BNPII 43.5 pg/mL (<300); Potassium 3.4 mmol/L (3.5-5.1); Total Protein 6.9 g/dL (6.3-8.2)
[2024-08-08] MEDS ORDERED: HYDROCODONE-ACETAMIN 2.5-108/5 ML SOLUTION ONE ×2 (00:06→01:20)
[2024-08-08] MEDS ORDERED: solu-MEDROL ONE (00:06)
[2024-08-08] MEDS ORDERED: Sterile H2O 10 ml IJ ONE (00:06)
[2024-08-08] MEDS: HYDROCODONE-ACETAMIN 2.5-108/5 ML SOLUTION PO STA ×2 (00:10→01:24)
[2024-08-08] MEDS: solu-MEDROL 125 MG, Sterile H2O 10 ml 2 ML IV ONE (00:10)
[2024-08-08] MEDS ORDERED: Zofran 4 MG/2 ML VIAL ONE (00:16)
[2024-08-08] MEDS: Zofran 4 MG/2 ML VIAL IV ONE (00:16)
[2024-08-08 00:36] LABS: INFLUENZA A NEGATIVE (NEGATIVE); INFLUENZA B NEGATIVE (NEGATIVE); RESPIRATORY SYNCTIAL VIRUS NEGATIVE (NEGATIVE); SARS-CoV-2 Xpert Express NEGATIVE (NEGATIVE)
[2024-08-08 01:07] VITALS: BP 110/58; PULSE 76; RESP 15; O2SAT 94
--- NOTE | 2024-08-08 07:02 | XRAY ---
Indication: Cough. Comparison: May 09, 2021 Portable chest better inflated with now mild left lung base discoid atelectasis/scarring. Remaining heart, lungs, and bony thorax unremarkable.
== END 2024-08-08 01:37 | disposition home or self-care (01) ==
LOC: ED 22:49
DX: J44.1 Chronic obstructive pulmonary disease with (acute) exacerbation (principal); R06.02 Shortness of breath; R05.1 Acute cough; Z79.52 Long term (current) use of systemic steroids; Z79.891 Long term (current) use of opiate analgesic; Z79.899 Other long term (current) drug therapy
CPT/HCPCS: 0241U; 36000; 36415; 71045; 80053; 83880; 84484; 85025; 85379; 87040; 87070; 93005; 94640; 94760; 96374; 99284; J2405; J2919; A9270-GY

== ENCOUNTER 2025-03-16 10:54 | Observation (INO) | payer MEDICARE ==
[2025-03-16] MEDS ORDERED: Sterile H2O 10 ml IJ ONE (11:35)
[2025-03-16] MEDS ORDERED: solu-MEDROL ONE (11:35)
[2025-03-16] MEDS: solu-MEDROL 125 MG, Sterile H2O 10 ml 2 ML IV ONE (11:36)
[2025-03-16] MEDS ORDERED: DUONEB 0.5-3 MG/3 ml Neb IH ONE (11:38)
[2025-03-16] MEDS: DUONEB 0.5-3 MG/3 ml Neb IH ONE (11:49)
[2025-03-16] MEDS ORDERED: Zofran 4 MG/2 ML VIAL ONE (11:52)
[2025-03-16 11:53] LABS: BASOPHIL % 0.3 % (0.1-1.2); Basophil (Absolute #) 0.06 x10^3/uL (0.01-0.08); Eosinophil % 0.2 % (0.7-5.8); Eosinophil (Absolute #) 0.03 x10^3/uL (0.04-0.36); Hematocrit 37.9 % (34.1-44.9); IMMATURE GRAN % 0.5 % (0.001-0.429); Lymphocyte (Absolute #) 2.41 x10^3/uL (1.18-3.74); Lymphocytes % 13.1 % (19.3-51.7); Mean Cell Volume 85.4 fL (79.4-94.8); Mean Corpuscular Hemoglobin 29.3 pg (25.6-32.2); Mean Corpuscular Hgb Concent. 34.3 g/dL (32.2-35.5); Mean Platelet Volume 9.9 fL (9.4-12.3); Monocyte (Absolute #) 1.54 x10^3/uL (0.24-0.86); Monocytes % 8.4 % (4.7-12.5); Neutrophil % 77.5 % (34.0-71.1); Platelet Count 294 x10^3/uL (182-369); Red Blood Count 4.44 x10^6/uL (3.93-5.22); Red Cell Distribution Width 12.8 % (11.7-14.4); White Blood Count 18.4 x10^3/uL (3.98-10.04)
[2025-03-16] MEDS: Zofran 4 MG/2 ML VIAL IV ONE (11:53)
[2025-03-16 12:05] LABS: ALBUMIN 4.2 g/dL (3.5-5.0); ANION GAP 16.9 MEQ/L (5-15); BILIRUBIN,TOTAL 1.1 mg/dL (0.2-1.3); Calcium 9.4 mg/dL (8.4-10.2); Creatinine 1 0.83 mg/dL (0.52-1.04); EST GLOMERULAR FILTRATION RATE 81.2 ML/MIN; Potassium 3.6 mmol/L (3.5-5.1); Total Protein 7.1 g/dL (6.3-8.2)
[2025-03-16 12:31] LABS: INFLUENZA A NEGATIVE (NEGATIVE); INFLUENZA B NEGATIVE (NEGATIVE); RESPIRATORY SYNCTIAL VIRUS NEGATIVE (NEGATIVE); SARS-CoV-2 Xpert Express NEGATIVE (NEGATIVE)
--- NOTE | 2025-03-16 12:34 | ERPHSYRPT ---
- History of Present Illness Time Seen by Provider: 03/16/25 12:30 Source: patient Exam Limitations: no limitations Patient Subjective Stated Complaint: PT states "I have been feeling bad for about a week and I am supposed to have a ct of my lungs today at 1 pm for my copd. I have been coughing and I get a little short of breath and I feel terrible." Triage Nursing Assessment: Pt presented alert and oriented X 3, skin pwd.Pt ambulates with a slow gait, able to speak in clear full sentences. PT has intermittant cough. Physician History: 59-year-old female vapes and smokes presents to our emergency department for mariel luation of cough shortness of breath and generalized malaise. Symptoms started approximately 1 week ago. Symptoms have been progressive. Cough is dry nonproductive. No associated chest pain. No nausea vomiting or diaphoresis. Symptoms are moderate in intensity. Symptoms worse with exertion. Patient voices no other complaints or concerns at this time. Portions of this note were created with voice recognition technology. There may be grammatical, spelling, punctuation or sound alike errors Timing/Duration: week(s) (1 week) Activities at Onset: none Severity of Dyspnea-Max: moderate Severity of Dyspnea-Current: mild Possible Cause: occasional episodes Modifying Factors: Improves With: activity Associated Symptoms: cough Allergies/Adverse Reactions: bupropion HCl [From Wellbutrin] Allergy (Mild, Verified 08/07/24 23:20) CVA SYMPTOMS citalopram hydrobromide [From Celexa] Allergy (Mild, Verified 08/07/24 23:20) UNKNOWN REACTION naproxen Allergy (Mild, Verified 08/07/24 23:20) VOMIT BLOOD sumatriptan [From Imitrex] Allergy (Mild, Verified 08/07/24 23:20) Headache ELEVATES BLOOD PRESSURE sumatriptan succinate [From Imitrex] Allergy (Mild, Verified 08/07/24 23:20) Headache ELEVATES BLOOD PRESSURE Home Medications: Albuterol Sulfate [Proair Hfa] 2 puffs IH TID PRN PRN 02/04/15 [History] Latanoprost 2.5 ml DROPS DAILY 08/07/24 [History] Lisinopril 5 mg [Zestril 5 MG] 10 mg PO DAILY 08/07/24 [History] Lurasidone HCl [Latuda] 120 mg PO DAILY 08/07/24 [History] Ondansetron [Ondansetron Odt ] 8 mg PO DAILY PRN PRN 08/07/24 [History] Rimegepant Sulfate [Nurtec Odt] 75 mg PO DAILY 08/07/24 [History] Budesonide/Formoterol Fumarate [Symbicort 160-4.5 Mcg Inhaler] 10.2 gm IH DAILY 03/16/25 [History] Hx Tetanus, Diphtheria Vaccination/Date Given: Yes Hx Influenza Vaccination/Date Given: No Hx Pneumococcal Vaccination/Date Given: Yes Immunizations Up to Date: No Travel Risk - International Travel Have you traveled outside of the country in past 3 weeks: No - Emerging Infectious Disease Are you exhibiting symptoms associated with any current EIDs: Yes Symptoms: Cough: New Onset, Headaches/Body Aches/, Joint Pain - Review of Systems Constitutional: No Symptoms, No Fever, No Chills Eyes: No Symptoms Ears, Nose, & Throat: No Symptoms Respiratory: No Symptoms, No Cough, No Dyspnea Cardiac: No Symptoms, No Chest Pain, No Edema, No Syncope Abdominal/Gastrointestinal: No Symptoms, No Abdominal Pain, No Nausea, No Vomi ting, No Diarrhea Genitourinary Symptoms: No Symptoms, No Dysuria Musculoskeletal: No Symptoms, No Back Pain, No Neck Pain Skin: No Symptoms, No Rash Neurological: No Symptoms, No Dizziness, No Focal Weakness, No Sensory Changes Psychological: No Symptoms Endocrine: No Symptoms Hematologic/Lymphatic: No Symptoms Immunological/Allergic: No Symptoms All Other Systems: Reviewed and Negative - Past Medical History Pertinent Past Medical History: Yes Neurological History: No Pertinent History, Migraines ENT History: No Pertinent History Cardiac History: No Pertinent History Respiratory History: Asthma, Bronchitis, COPD, Pneumonia Endocrine Medical History: No Pertinent History Musculoskeletal History: No Pertinent History GI Medical History: GERD, Ulcer History: No Pertinent History Psycho-Social History: Anxiety, Depression, Panic Disorder Female Reproductive Disorders: Fibroids Other Medical History: chronic back pain - Past Surgical History Past Surgical History: Yes Neuro Surgical History: No Pertinent History Cardiac: Cardiac Catheterization Respiratory: No Pertinent History Gastrointestinal: No Pertinent History Genitourinary: No Pertinent History Musculoskeletal: Joint Replacement Female Surgical History: Hysterectomy Other Surgical History: D&C, right elbow, tubes in ears, deviated septum Significant Family History: no pertinent family hx - Social History Smoking Status: Former smoker How long have you smoked: 40 Exposure to second hand smoke: Yes Drug Use: none - Social Determinants of Health Will the patient participate in the screening: Yes Do you worry about a steady place to live?: No Do you have any problems with any of the following?: No known problems In the past 12 months,have you had to go without utilities?: No Transportation Issues: No Has anyone in your support network made you feel unsafe?: No Have you or anyone in your house had to go w/o enough food: No - Nursing Vital Signs Nursing Vital Signs: Initial Vital Signs Temperature 99.6 F 03/16/25 10:55 Pulse Rate 110 H 03/16/25 10:55 Respiratory Rate 22 03/16/25 10:55 Blood Pressure 138/83 03/16/25 10:55 O2 Sat by Pulse Oximetry 96 03/16/25 10:55 Pain Scale Pain Intensity 0 - Physical Exam General Appearance: no apparent distress, alert Eye Exam: PERRL/EOMI Ears, Nose, Throat Exam: hearing grossly normal, normal ENT inspection, normal pharynx Neck Exam: normal inspection, supple Respiratory Exam: diminished breath sounds, rhonchi, wheezing Cardiovascular/Chest Exam: normal heart sounds, regular rate/rhythm Abdominal/Gastrointestinal Exam: soft, No tenderness, No distention, No mass Extremity Exam: non-tender, normal range of motion, normal inspection, no calf tenderness, no pedal edema Neurologic Exam: alert, oriented x 3, cooperative, tank carpenter II-XII nml as tested, sensation nml, No motor deficits Skin Exam: normal color, warm, No dry SpO2 Interpretation: normal SpO2: 92 O2 Delivery: Room Air - Course Nursing assessment & vital signs reviewed: Yes - CT Exams Chest CT Interpretation: Tele-radiologist Report (No PE. Right upper and right middle lobe pneumonia) Ordered Tests: Active Orders 24 hr Category Date Time Status Real Estate Instructor STAT Care 03/16/25 11:25 Active IV Insertion STAT Care 03/16/25 11:24 Active Pulse Oximetry (ED) STAT Care 03/16/25 11:24 Active CHEST WITH CONTRAST [CT] Stat Exams 03/16/25 12:18 Completed BLOOD CULTURE Stat Lab 03/16/25 11:49 Received CBC W DIFF Stat Lab 03/16/25 11:35 Completed CMP Stat Lab 03/16/25 11:35 Completed D-DIMER QUANTITATIVE Stat Lab 03/16/25 11:35 Completed TROPONIN Q4H Lab 03/16/25 11:35 Completed TROPONIN Q4H Lab 03/16/25 15:30 Ordered TROPONIN Q4H Lab 03/16/25 19:30 Ordered Respiratory Therapy Assessment DAILY RT 03/16/25 11:54 Active Transfer Order Routine Transfer 03/16/25 Ordered Medication Summary Generic Name Dose Route Start Last Admin Trade Name Freq PRN Reason Stop Dose Admin Azithromycin 500 mg/ Sodium 250 mls @ 250 mls/hr 03/16/25 14:09 Chloride IV 03/16/25 15:08 STAT STA Discontinued Medications Generic Name Dose Route Start Last Admin Trade Name Freq PRN Reason Stop Dose Admin Albuterol/Ipratropium 3 ml 03/16/25 11:24 03/16/25 11:49 Ipratropium/Albuterol Sulfate 3 Ml Ampul.Neb IH 03/16/25 11:25 3 ml STAT ONE Administration Albuterol/Ipratropium Confirm 03/16/25 11:38 Ipratropium/Albuterol Sulfate 3 Ml Ampul.Neb Administered 03/16/25 11:39 Dose 3 ml IH .STK-MED ONE Methylprednisolone Sodium 0 mg 03/16/25 11:24 03/16/25 11:36 Succinate 125 mg/ Sterile IV 03/16/25 11:25 125 mg Water 2 ml STAT ONE Administration Ceftriaxone Sodium 2 gm in 100 mls @ 200 mls/hr 03/16/25 14:09 03/16/25 14:29 Rocephin 2 Gm/100 Ml Nacl IV 03/16/25 14:38 200 mls/hr STAT ONE 200 mls/hr Administration Ceftriaxone Sodium Confirm 03/16/25 14:28 Rocephin 2 Gm/100 Ml Nacl Administered 03/16/25 14:29 Dose 2 gm in 100 mls @ ud IV .STK-MED ONE Methylprednisolone Sodium Succinate Confirm 03/16/25 11:35 Methylprednis Sod Succ 125 Mg/2 Ml Vial Administered 03/16/25 11:36 Dose 125 mg .ROUTE .STK-MED ONE Ondansetron HCl 4 mg 03/16/25 11:50 03/16/25 11:53 Ondansetron Hcl 4 Mg/2 Ml Vial IV 03/16/25 11:51 4 mg STAT ONE Administration Ondansetron HCl Confirm 03/16/25 11:52 Ondansetron Hcl 4 Mg/2 Ml Vial Administered 03/16/25 11:53 Dose 4 mg .ROUTE .Bubble [employer] Balm-zoidu ONE Sterile Water Confirm 03/16/25 11:35 Water For Injection,Sterile 10 Ml Vial Administered 03/16/25 11:36 Dose 10 ml IJ .Bubble [employer] Balm-zoidu ONE Lab/Rad Data: Laboratory Result Diagrams 03/16/25 11:35 03/16/25 11:35 Laboratory Results 03/16/25 03/16/25 03/16/25 Range/Units 11:35 11:35 11:35 WBC (3.98-10.04) x10^3/uL RBC (3.93-5.22) x10^6/uL Hgb (11.2-15.7) g/dL Hct (34.1-44.9) % MCV (79.4-94.8) fL MCH (25.6-32.2) pg MCHC (32.2-35.5) g/dL RDW (11.7-14.4) % Plt Count (182-369) x10^3/uL MPV (9.4-12.3) fL Gran % (34.0-71.1) % Immature Gran % (Auto) (0.001-0.429) % Nucleat RBC Rel Count (0.00-0.2) % Eos # (Auto) (0.04-0.36) x10^3/uL Immature Gran # (Auto) (0.001-0.031) x10^3u/L Absolute Lymphs (auto) (1.18-3.74) x10^3/uL Absolute Monos (auto) (0.24-0.86) x10^3/uL Absolute Nucleated RBC (0.00-0.012) x10^3u/L Lymphocytes % (19.3-51.7) % Monocytes % (4.7-12.5) % Eosinophils % (0.7-5.8) % Basophils % (0.1-1.2) % Absolute Granulocytes (1.56-6.13) x10^3/uL Basophils # (0.01-0.08) x10^3/uL D-Dimer (0.0-0.50) mg/L Sodium (135-145) mmol/L Potassium (3.5-5.1) mmol/L Chloride (98-107) mmol/L Carbon Dioxide (22-30) mmol/L Anion Gap (5-15) MEQ/L BUN (7-17) mg/dL Creatinine (0.52-1.04) mg/dL Estimated GFR ML/MIN Glucose (74-106) mg/dL Calcium (8.4-10.2) mg/dL Total Bilirubin (0.2-1.3) mg/dL AST (14-36) U/L ALT (0-35) U/L Alkaline Phosphatase (38-126) U/L Troponin I < 0.012 (0.000-0.033) ng/mL Serum Total Protein (6.3-8.2) g/dL Albumin (3.5-5.0) g/dL Influenza Type A Ag NEGATIVE (NEGATIVE) Influenza Type B Ag NEGATIVE (NEGATIVE) RSV (PCR) NEGATIVE (NEGATIVE) SARS-CoV-2 (PCR) NEGATIVE (NEGATIVE) Group A Strep Antibody NOT DETECTED (NEGATIVE) Slides for Path Review 03/16/25 03/16/25 03/16/25 Range/Units 11:35 11:35 11:35 WBC 18.4 H (3.98-10.04) x10^3/uL RBC 4.44 (3.93-5.22) x10^6/uL Hgb 13.0 (11.2-15.7) g/dL Hct 37.9 (34.1-44.9) % MCV 85.4 (79.4-94.8) fL MCH 29.3 (25.6-32.2) pg MCHC 34.3 (32.2-35.5) g/dL RDW 12.8 (11.7-14.4) % Plt Count 294 (182-369) x10^3/uL MPV 9.9 (9.4-12.3) fL Gran % 77.5 H (34.0-71.1) % Immature Gran % (Auto) 0.5 H (0.001-0.429) % Nucleat RBC Rel Count 0.0 (0.00-0.2) % Eos # (Auto) 0.03 L (0.04-0.36) x10^3/uL Immature Gran # (Auto) 0.10 H (0.001-0.031) x10^3u/L Absolute Lymphs (auto) 2.41 (1.18-3.74) x10^3/uL Absolute Monos (auto) 1.54 H (0.24-0.86) x10^3/uL Absolute Nucleated RBC 0.00 (0.00-0.012) x10^3u/L Lymphocytes % 13.1 L (19.3-51.7) % Monocytes % 8.4 (4.7-12.5) % Eosinophils % 0.2 L (0.7-5.8) % Basophils % 0.3 (0.1-1.2) % Absolute Granulocytes 14.30 H (1.56-6.13) x10^3/uL Basophils # 0.06 (0.01-0.08) x10^3/uL D-Dimer 0.52 H (0.0-0.50) mg/L Sodium 137 (135-145) mmol/L Potassium 3.6 (3.5-5.1) mmol/L Chloride 100 (98-107) mmol/L Carbon Dioxide 23 (22-30) mmol/L Anion Gap 16.9 H (5-15) MEQ/L BUN 17 (7-17) mg/dL Creatinine 0.83 (0.52-1.04) mg/dL Estimated GFR 81.2 ML/MIN Glucose 117 H (74-106) mg/dL Calcium 9.4 (8.4-10.2) mg/dL Total Bilirubin 1.10 (0.2-1.3) mg/dL AST 32 (14-36) U/L ALT 23 (0-35) U/L Alkaline Phosphatase 66 (38-126) U/L Troponin I (0.000-0.033) ng/mL Serum Total Protein 7.1 (6.3-8.2) g/dL Albumin 4.2 (3.5-5.0) g/dL Influenza Type A Ag (NEGATIVE) Influenza Type B Ag (NEGATIVE) RSV (PCR) (NEGATIVE) SARS-CoV-2 (PCR) (NEGATIVE) Group A Strep Antibody (NEGATIVE) Slides for Path Review YES - Progress Progress: improved Air Movement: good Progress Note: Patient is a 59-year-old female presents to emergency department for evaluation of shortness of breath. Patient is a smoker and vapes. Patient hypoxic upon arrival. Patient has a significant cough as well. Physical exam reveals diminished coarse breath sounds with scattered wheezing. Workup reveals a leukocytosis. D-dimer positive. CT chest reveals a right upper right middle lobe pneumonia. Blood cultures obtained. Antibiotics infused. Patient received a dose of Solu-Medrol. Breathing treatment administered. Shortness of breath significantly improved. Patient is not hypoxic at rest. Viral panel negative. Patient will require hospitalization for further evaluation and treatment. Case discussed with Dr. Cabrera who accepts admission to observation. Patient will be placed in isolation for TB rule out. Plan of care discussed with patient. She agrees to admission to [facility] for further evaluation and treatment. Portions of this note were created with voice recognition technology. There may be grammatical, spelling, punctuation or sound alike errors Complexity of problem addressed is moderate acute complicated. No critical care time. Complexity of data reviewed and analyzed as extensive. Test ordered test reviewed results analyzed and correlated clinically with history and physical exam. Risk of complication and or risk of morbidity/mortality of patient management is high. Patient requires hospitalization for further evaluation and treatment. Vital stable. Time spent admit patient is approximately 15 minutes. Plan of care established for shared decision making. No social determinants of health present to impede follow-up. Portions of this note were created with voice recognition technology. There may be grammatical, spelling, punctuation or sound alike errors 03/16/25 14:47 Blood Culture(s) Obtained: Yes Antibiotics given: Yes Counseled pt/family regarding: lab results, diagnosis, rad results - Departure Departure Disposition: Observation Clinical Impression: Cough, SOB (shortness of breath), Leukocytosis, COPD exacerbation, Hypoxia, Pneumonia, Fatty liver, Hiatal hernia Condition: Stable Critical Care Time: No Referrals: BHARGAV ALANIS MD [Primary Care Provider] - Follow up/PCP as directed Instructions: Chronic Obstructive Pulmonary Disease
[2025-03-16 13:47] LABS: Slide Review 1 YES
--- NOTE | 2025-03-16 14:03 | XRAY ---
Indication: Short of breath. Cough. Elevated d-dimer. Multiple contiguous axial images obtained through the chest using 80 cc Isovue 370 contrast and PE protocol. Comparison: September 08, 2013 Good opacification pulmonary arteries including lobar and segmental branches. Again no pulmonary embolus. Heart not enlarged. Aorta is normal in course and caliber. No pathologic mediastinal/hilar lymphadenopathy. New small hiatal hernia. Lungs demonstrates new consolidating/nonconsolidating right lower lobe airspace disease. Lesser new patchy ground glass airspace disease right middle and inferior right upper lobes. Left lung clear again with incidental tiny left base calcified granuloma. Bony thorax intact. Limited upper abdomen now demonstrates fatty liver. Impression: 1. Continued negative pulmonary embolus. 2. New diffuse right lung airspace disease greatest lower lobe, consistent with clinical presentation. 3. Incidental new small hiatal hernia and new fatty liver.
[2025-03-16] MEDS ORDERED: ROCEPHIN 2 GM/100 ML NACL 2 GM/100 ML IVPB IV ONE (14:28)
[2025-03-16] MEDS: ROCEPHIN 2 GM/100 ML NACL 2 GM/100 ML IVPB IV ONE (14:29)
[2025-03-16] MEDS ORDERED: Zofran 4 MG/2 ML VIAL IV PRN (15:45)
--- NOTE | 2025-03-16 15:45 | PCM.HP ---
History of Present Illness - Chief Complaint Chief Complaint: pneumonia Date: 03/16/25 History of Present Illness: is a 59-year-old female with a past medical history of hypertension, tobacco use disorder, COPD (on room air at baseline), GERD, anxiety/depression, panic disorder, and chronic back pain who presented to the ED on 03/16/25 with a 6-day history of progressive shortness of breath, productive cough with white sputum, fatigue, subjective fevers, chills, nausea, and vomiting. On presentation, she was tachycardic (HR 110) and tachypneic. Initial labs revealed leukocytosis (WBC 18.4) and an elevated anion gap of 16.9. D-dimer was elevated, prompting a CTA of the chest, which ruled out pulmonary embolism but demonstrated new diffuse right lung airspace disease, greatest in the right lower lobe, consistent with pneumonia. Infectious workup including COVID-19, influenza, RSV, and streptococcal testing was negative. She was treated in the ED with ceftriaxone, azithromycin, Solu-Medrol, Duonebs, and Zofran, with noted clinical improvement. Admitted for further management of sepsis secondary to community-acquired pneumonia. - Review of Systems Constitutional: Fever, Chills, Fatigue Eyes: No Symptoms Ears, Nose, & Throat: No Symptoms Respiratory: Cough, Short Of Breath Cardiac: Chest Pain (with deep inhalation/cough) Abdominal/Gastrointestinal: Nausea, Vomiting Genitourinary Symptoms: No Symptoms Musculoskeletal: Back Pain (chronic) Neurological: No Symptoms Psychological: No Symptoms Endocrine: No Symptoms Hematologic/Lymphatic: No Symptoms Immunological/Allergic: No Symptoms Medications & Allergies Home Medications: Home Medication List Albuterol Sulfate [Proair Hfa] 2 puffs IH TID PRN PRN 02/04/15 [History Confirmed 03/16/25] Latanoprost 2.5 ml DROPS DAILY 08/07/24 [History Confirmed 03/16/25] Lisinopril 5 mg [Zestril 5 MG] 10 mg PO DAILY 08/07/24 [History Confirmed 03/16/25] Lurasidone HCl [Latuda] 120 mg PO DAILY 08/07/24 [History Confirmed 03/16/25] Ondansetron [Ondansetron Odt ] 8 mg PO DAILY PRN PRN 08/07/24 [History Confirmed 03/16/25] Rimegepant Sulfate [Nurtec Odt] 75 mg PO DAILY 08/07/24 [History Confirmed 03/16/25] Budesonide/Formoterol Fumarate [Symbicort 160-4.5 Mcg Inhaler] 10.2 gm IH DAILY 03/16/25 [History Confirmed 03/16/25] Allergies/Adverse Reactions: Allergies Allergy/AdvReac Type Severity Reaction Status Date / Time bupropion HCl Allergy Mild Verified 08/07/24 23:20 [From Wellbutrin] citalopram hydrobromide Allergy Mild Verified 08/07/24 23:20 [From Celexa] naproxen Allergy Mild Verified 08/07/24 23:20 sumatriptan [From Imitrex] Allergy Mild Headache Verified 08/07/24 23:20 sumatriptan succinate Allergy Mild Headache Verified 08/07/24 23:20 [From Imitrex] - Past Medical History Past Medical History: Yes Neurological History: No Pertinent History, Migraines ENT History: No Pertinent History Cardiac History: No Pertinent History Respiratory History: Asthma, Bronchitis, COPD, Pneumonia Endocrine Medical History: No Pertinent History Musculoskelatal History: No Pertinent History GI Medical History: GERD, Ulcer History: No Pertinent History Pyscho-Social History: Anxiety, Depression, Panic Disorder Reproductive Disorders: Fibroids Comment: chronic back pain - Past Surgical History Past Surgical History: Yes Neuro Surgical History: No Pertinent History Cardiac History: Cardiac Catheterization Respiratory Surgery: No Pertinent History GI Surgical History: No Pertinent History Genitourinary Surgical Hx: No Pertinent History Musculskeletal Surgical Hx: Joint Replacement Female Surgical History: Hysterectomy Other Surgical History: D&C, right elbow, tubes in ears, deviated septum Significant Family History: heart disease, cancer - Social History Smoking Status: Former smoker How long have you smoked: 40 Exposure to second hand smoke: Yes Alcohol: Rarely Drug Use: none - Social Determinants of Health Will the patient participate in the screening: Yes Do you worry about a steady place to live?: No Do you have any problems with any of the following?: No known problems In the past 12 months,have you had to go without utilities?: No Have you or anyone in your house had to go without enough: No Transportation Issues: No Has anyone in your support network made you feel unsafe?: No - Physical Exam Vital Signs: Vital Signs - 24 hr Temp Pulse Resp BP BP Pulse Ox 03/16/25 14:52 92 L 03/16/25 14:30 88 22 142/70 97 03/16/25 14:15 91 H 33 H 130/79 94 L 03/16/25 14:00 91 H 33 H 121/71 92 L 03/16/25 13:45 90 21 135/69 94 L 03/16/25 13:30 92 H 22 124/70 96 03/16/25 13:15 93 H 14 129/75 96 03/16/25 13:00 96 H 24 123/67 94 L 03/16/25 12:50 95 H 31 H 120/65 93 L 03/16/25 12:30 92 H 16 127/68 95 03/16/25 12:15 94 H 17 125/71 93 L 03/16/25 12:02 98 H 28 H 144/78 92 L 03/16/25 11:54 97 H 16 95 03/16/25 11:46 94 L 03/16/25 11:30 25 H 144/78 03/16/25 11:18 101 H 26 H 132/72 96 03/16/25 11:00 104 H 16 138/77 96 03/16/25 10:55 99.6 F 110 H 22 138/83 96 General Appearance: no apparent distress Neurologic Exam: alert, oriented x 3, cooperative Eye Exam: PERRL/EOMI Ears, Nose, Throat Exam: normal ENT inspection Neck Exam: normal inspection Respiratory Exam: diminished breath sounds, crackles/rales Cardiovascular Exam: regular rate/rhythm, normal heart sounds Pelvic Exam: not done Rectal Exam: deferred Back Exam: normal inspection Extremity Exam: normal inspection Skin Exam: normal color Results - Labs Lab/Micro Results: Lab Results-Last 24 Hours 03/16/25 03/16/25 03/16/25 Range/Units 11:35 11:35 11:35 WBC 18.4 H (3.98-10.04) x10^3/uL RBC 4.44 (3.93-5.22) x10^6/uL Hgb 13.0 (11.2-15.7) g/dL Hct 37.9 (34.1-44.9) % MCV 85.4 (79.4-94.8) fL MCH 29.3 (25.6-32.2) pg MCHC 34.3 (32.2-35.5) g/dL RDW 12.8 (11.7-14.4) % Plt Count 294 (182-369) x10^3/uL MPV 9.9 (9.4-12.3) fL Gran % 77.5 H (34.0-71.1) % Immature Gran % (Auto) 0.5 H (0.001-0.429) % Nucleat RBC Rel Count 0.0 (0.00-0.2) % Eos # (Auto) 0.03 L (0.04-0.36) x10^3/uL Immature Gran # (Auto) 0.10 H (0.001-0.031) x10^3u/L Absolute Lymphs (auto) 2.41 (1.18-3.74) x10^3/uL Absolute Monos (auto) 1.54 H (0.24-0.86) x10^3/uL Absolute Nucleated RBC 0.00 (0.00-0.012) x10^3u/L Lymphocytes % 13.1 L (19.3-51.7) % Monocytes % 8.4 (4.7-12.5) % Eosinophils % 0.2 L (0.7-5.8) % Basophils % 0.3 (0.1-1.2) % Absolute Granulocytes 14.30 H (1.56-6.13) x10^3/uL Basophils # 0.06 (0.01-0.08) x10^3/uL D-Dimer 0.52 H (0.0-0.50) mg/L Sodium 137 (135-145) mmol/L Potassium 3.6 (3.5-5.1) mmol/L Chloride 100 (98-107) mmol/L Carbon Dioxide 23 (22-30) mmol/L Anion Gap 16.9 H (5-15) MEQ/L BUN 17 (7-17) mg/dL Creatinine 0.83 (0.52-1.04) mg/dL Estimated GFR 81.2 ML/MIN Glucose 117 H (74-106) mg/dL Calcium 9.4 (8.4-10.2) mg/dL Total Bilirubin 1.10 (0.2-1.3) mg/dL AST 32 (14-36) U/L ALT 23 (0-35) U/L Alkaline Phosphatase 66 (38-126) U/L Troponin I (0.000-0.033) ng/mL Serum Total Protein 7.1 (6.3-8.2) g/dL Albumin 4.2 (3.5-5.0) g/dL Influenza Type A Ag (NEGATIVE) Influenza Type B Ag (NEGATIVE) RSV (PCR) (NEGATIVE) SARS-CoV-2 (PCR) (NEGATIVE) Group A Strep Antibody (NEGATIVE) Slides for Path Review YES 03/16/25 03/16/25 03/16/25 Range/Units 11:35 11:35 11:35 WBC (3.98-10.04) x10^3/uL RBC (3.93-5.22) x10^6/uL Hgb (11.2-15.7) g/dL Hct (34.1-44.9) % MCV (79.4-94.8) fL MCH (25.6-32.2) pg MCHC (32.2-35.5) g/dL RDW (11.7-14.4) % Plt Count (182-369) x10^3/uL MPV (9.4-12.3) fL Gran % (34.0-71.1) % Immature Gran % (Auto) (0.001-0.429) % Nucleat RBC Rel Count (0.00-0.2) % Eos # (Auto) (0.04-0.36) x10^3/uL Immature Gran # (Auto) (0.001-0.031) x10^3u/L Absolute Lymphs (auto) (1.18-3.74) x10^3/uL Absolute Monos (auto) (0.24-0.86) x10^3/uL Absolute Nucleated RBC (0.00-0.012) x10^3u/L Lymphocytes % (19.3-51.7) % Monocytes % (4.7-12.5) % Eosinophils % (0.7-5.8) % Basophils % (0.1-1.2) % Absolute Granulocytes (1.56-6.13) x10^3/uL Basophils # (0.01-0.08) x10^3/uL D-Dimer (0.0-0.50) mg/L Sodium (135-145) mmol/L Potassium (3.5-5.1) mmol/L Chloride (98-107) mmol/L Carbon Dioxide (22-30) mmol/L Anion Gap (5-15) MEQ/L BUN (7-17) mg/dL Creatinine (0.52-1.04) mg/dL Estimated GFR ML/MIN Glucose (74-106) mg/dL Calcium (8.4-10.2) mg/dL Total Bilirubin (0.2-1.3) mg/dL AST (14-36) U/L ALT (0-35) U/L Alkaline Phosphatase (38-126) U/L Troponin I < 0.012 (0.000-0.033) ng/mL Serum Total Protein (6.3-8.2) g/dL Albumin (3.5-5.0) g/dL Influenza Type A Ag NEGATIVE (NEGATIVE) Influenza Type B Ag NEGATIVE (NEGATIVE) RSV (PCR) NEGATIVE (NEGATIVE) SARS-CoV-2 (PCR) NEGATIVE (NEGATIVE) Group A Strep Antibody NOT DETECTED (NEGATIVE) Slides for Path Review - Radiology Impressions Radiology Exams & Impressions: Radiology Procedures Category Date Time Status CHEST WITH CONTRAST [CT] Stat Exams 03/16/25 12:18 Completed - Other Procedures and Tests Respiratory Therapy 03/16/25 11:54 Respiratory Therapy Assessment DAILY Assessment/Plan (1) Sepsis Current Visit: Yes Status: Acute Assessment & Plan: -Meets criteria with HR, RR, WBC at 18.4- known infection - pneumonia -CT chest demonstrated new diffuse right lung airspace disease, greatest in the right lower lobe, consistent with pneumonia -Covid/flu/rsv/strep negative -TB gold/ TB skin test per protocol -UA/lactic acid/PCT -Blood/sputum cultures pending -Ceftriaxone/azithromycin started in ED will continue -Solumedrol/DuoNebs -Supplemental oxygen with goal spo2>91% - currently on RA which is baseline -anti-pyretics/anti-emetics -PPI/Lovenox -RT eval and follow -IVF (2) Pneumonia Current Visit: Yes Status: Acute Assessment & Plan: -see sepsis for plan Code(s): J18.9 - PNEUMONIA, UNSPECIFIED ORGANISM (3) HTN (hypertension) Current Visit: Yes Status: Acute Assessment & Plan: -stable continue home lisinopril Code(s): I10 - ESSENTIAL (PRIMARY) HYPERTENSION (4) COPD exacerbation Current Visit: Yes Status: Acute Assessment & Plan: -see plan for sepsis above Code(s): J44.1 - CHRONIC OBSTRUCTIVE PULMONARY DISEASE W (ACUTE) EXACERBATION (5) Anxiety and depression Current Visit: Yes Status: Acute Assessment & Plan: -continue home meds Code(s): F41.9 - ANXIETY DISORDER, UNSPECIFIED; F32.A - DEPRESSION, UNSPECIFIED (6) Tobacco abuse Current Visit: Yes Status: Acute Assessment & Plan: -Advised cessation- patient states she smokes/vapes -less than 1 pack/1 vape per month -Nicotine patch Code(s): Z72.0 - TOBACCO USE (7) Chronic back pain Current Visit: Yes Status: Acute Assessment & Plan: -continue home regimen VTE: Lovenox PPI: protonix Dispo: 1-2 days Code status: Full code Next of Kin Fer Dee [phone] Code(s): M54.9 - DORSALGIA, UNSPECIFIED; G89.29 - OTHER CHRONIC PAIN Telemedicine Encounter - Telemedicine Encounter Telemedicine Encounter: "The entirety of this encounter was performed via Telemedicine" This visit was performed using real-time audio and video connection between my location and thepatients locationwith the assistance of a surrogateat the patients location. Written or verbal consent was obtained from the patient/guardian to perform this visit [facility] technology. Any patient questions regarding the telemedicine interaction were answered.
[2025-03-16] MEDS: ZITHROMAX IV*** 500 MG in Sodium Chloride 0.9% 250 ML 250 ML IV STA (16:10)
[2025-03-16] MEDS: Sodium Chloride 0.9% 1000 ML 1,000 ML IV SCH (17:16)
[2025-03-16] MEDS ORDERED: VENTOLIN COMMON CANISTER IH PRN (17:17)
[2025-03-16] MEDS: PROTONIX 40 MG IV IV SCH (17:19)
[2025-03-16] MEDS: NICODERM CQ 14 MG TOP SCH (17:19)
[2025-03-16] MEDS ORDERED: MEDICATION INTERVENTION MC SCH ×2 (17:30→17:45)
[2025-03-16] MEDS: DUONEB 0.5-3 MG/3 ml Neb IH SCH (19:45)
[2025-03-16] MEDS: FLUTICASONE-SALMETEROL 250-50 IH SCH (19:46)
[2025-03-16] MEDS ORDERED: Aplisol ID ONE (20:50)
[2025-03-16] MEDS: Aplisol ID ONE (20:58)
[2025-03-16] MEDS: Xalatan OP SCH (21:30)
[2025-03-16] MEDS: solu-MEDROL 40 MG, Sterile H2O 10 ml 1 ML IV SCH (21:30)
[2025-03-17 04:47] LABS: BASOPHIL % 0.1 % (0.1-1.2); Basophil (Absolute #) 0.01 x10^3/uL (0.01-0.08); Eosinophil (Absolute #) 0 x10^3/uL (0.04-0.36); IMMATURE GRAN # 0.07 x10^3u/L (0.001-0.031); IMMATURE GRAN % 0.7 % (0.001-0.429); Lymphocyte (Absolute #) 0.78 x10^3/uL (1.18-3.74); Lymphocytes % 7.5 % (19.3-51.7); Mean Cell Volume 87.6 fL (79.4-94.8); Mean Corpuscular Hemoglobin 29.2 pg (25.6-32.2); Mean Corpuscular Hgb Concent. 33.3 g/dL (32.2-35.5); Monocyte (Absolute #) 0.24 x10^3/uL (0.24-0.86); Monocytes % 2.3 % (4.7-12.5); Neutrophil % 89.4 % (34.0-71.1); Platelet Count 290 x10^3/uL (182-369); Red Blood Count 4.11 x10^6/uL (3.93-5.22); Red Cell Distribution Width 13.2 % (11.7-14.4); White Blood Count 10.4 x10^3/uL (3.98-10.04)
--- NOTE | 2025-03-17 05:15 | PCM.NOTE ---
Date and Time: 03/17/25 0514 Subjective Assessment: is a 59-year-old female with a past medical history of hypertension, tobacco use disorder, COPD (on room air at baseline), GERD, anxiety/depression, panic disorder, and chronic back pain who presented to the ED on 03/16/25 with a 6-day history of progressive shortness of breath, productive cough with white sputum, fatigue, subjective fevers, chills, nausea, and vomiting. On presentation, she was tachycardic (HR 110) and tachypneic. Initial labs revealed leukocytosis (WBC 18.4) and an elevated anion gap of 16.9. D-dimer was elevated, prompting a CTA of the chest, which ruled out pulmonary embolism but demonstrated new diffuse right lung airspace disease, greatest in the right lower lobe, consistent with pneumonia. Infectious workup including COVID-19, influenza, RSV, and streptococcal testing was negative. She was treated in the ED with ceftriaxone, azithromycin, Solu-Medrol, Duonebs, and Zofran, with noted clinical improvement. Admitted for further management of sepsis secondary to community-acquired pneumonia. 03/17/25: Met with patient bedside. Endorses improvement in dyspnea, though she continues to experience a productive cough. Nausea/vomiting have resolved. Tolerating a diet. Laboratory studies show a downtrend in white blood cell count, suggesting response to treatment. Blood and urine cultures are currently pending. She is on room air, consistent with her baseline oxygen requirements. Patient reports persistent generalized weakness and expresses that she does not feel physically capable of returning home at this time. - Review of Systems Constitutional: Weakness Eyes: No Symptoms Ears, Nose, & Throat: No Symptoms Respiratory: Cough, Short Of Breath, Wheezing Cardiac: No Symptoms Abdominal/Gastrointestinal: No Symptoms Genitourinary Symptoms: No Symptoms Musculoskeletal: No Symptoms Skin: No Symptoms Neurological: No Symptoms Psychological: No Symptoms Endocrine: No Symptoms Hematologic/Lymphatic: No Symptoms Immunological/Allergic: No Symptoms Objective Exam General Appearance: no apparent distress Neurologic Exam: alert, oriented x 3, cooperative Skin Exam: normal color Eye Exam: PERRL Ears, Nose, Throat Exam: normal ENT inspection Neck Exam: normal inspection Respiratory Exam: crackles/rales, wheezing Cardiovascular Exam: regular rate/rhythm, normal heart sounds Gastrointestinal/Abdomen Exam: soft, normal bowel sounds Extremity Exam: normal inspection Back Exam: normal inspection Pelvic Exam: deferred Rectal Exam: deferred Objective Data Vital Signs: Vital Signs - 24 hr Temp Pulse Resp BP BP Pulse Ox 03/17/25 04:00 97.4 F 79 18 116/55 94 L 03/17/25 01:31 80 18 98 03/16/25 23:48 97.3 F 72 18 112/55 94 L 03/16/25 19:47 97.9 F 84 18 124/58 96 03/16/25 16:57 89 18 95 03/16/25 16:25 96.8 F 97 H 16 106/69 94 L 03/16/25 14:52 92 L 03/16/25 14:30 88 22 142/70 97 03/16/25 14:15 91 H 33 H 130/79 94 L 03/16/25 14:00 91 H 33 H 121/71 92 L 03/16/25 13:45 90 21 135/69 94 L 03/16/25 13:30 92 H 22 124/70 96 03/16/25 13:15 93 H 14 129/75 96 03/16/25 13:00 96 H 24 123/67 94 L 03/16/25 12:50 95 H 31 H 120/65 93 L 03/16/25 12:30 92 H 16 127/68 95 03/16/25 12:15 94 H 17 125/71 93 L 03/16/25 12:02 98 H 28 H 144/78 92 L 03/16/25 11:54 97 H 16 95 03/16/25 11:46 94 L 03/16/25 11:30 25 H 144/78 03/16/25 11:18 101 H 26 H 132/72 96 03/16/25 11:00 104 H 16 138/77 96 03/16/25 10:55 99.6 F 110 H 22 138/83 96 Pain Assessment - Last Documented Pain Intensity 3 Intake and Output: Intake & Output 03/14/25 03/15/25 03/16/25 03/17/25 11:59 11:59 11:59 11:59 Intake Total 2075 Balance 2075 Weight 75 kg 75.7 kg Lab Results: Lab Results-Last 24 Hours 03/16/25 03/16/25 03/16/25 Range/Units 11:35 11:35 11:35 WBC 18.4 H (3.98-10.04) x10^3/uL RBC 4.44 (3.93-5.22) x10^6/uL Hgb 13.0 (11.2-15.7) g/dL Hct 37.9 (34.1-44.9) % MCV 85.4 (79.4-94.8) fL MCH 29.3 (25.6-32.2) pg MCHC 34.3 (32.2-35.5) g/dL RDW 12.8 (11.7-14.4) % Plt Count 294 (182-369) x10^3/uL MPV 9.9 (9.4-12.3) fL Gran % 77.5 H (34.0-71.1) % Immature Gran % (Auto) 0.5 H (0.001-0.429) % Nucleat RBC Rel Count 0.0 (0.00-0.2) % Eos # (Auto) 0.03 L (0.04-0.36) x10^3/uL Immature Gran # (Auto) 0.10 H (0.001-0.031) x10^3u/L Absolute Lymphs (auto) 2.41 (1.18-3.74) x10^3/uL Absolute Monos (auto) 1.54 H (0.24-0.86) x10^3/uL Absolute Nucleated RBC 0.00 (0.00-0.012) x10^3u/L Lymphocytes % 13.1 L (19.3-51.7) % Monocytes % 8.4 (4.7-12.5) % Eosinophils % 0.2 L (0.7-5.8) % Basophils % 0.3 (0.1-1.2) % Absolute Granulocytes 14.30 H (1.56-6.13) x10^3/uL Basophils # 0.06 (0.01-0.08) x10^3/uL D-Dimer 0.52 H (0.0-0.50) mg/L Sodium 137 (135-145) mmol/L Potassium 3.6 (3.5-5.1) mmol/L Chloride 100 (98-107) mmol/L Carbon Dioxide 23 (22-30) mmol/L Anion Gap 16.9 H (5-15) MEQ/L BUN 17 (7-17) mg/dL Creatinine 0.83 (0.52-1.04) mg/dL Estimated GFR 81.2 ML/MIN Glucose 117 H (74-106) mg/dL Lactic Acid (0.4-2.0) Calcium 9.4 (8.4-10.2) mg/dL Magnesium (1.6-2.3) mg/dL Total Bilirubin 1.10 (0.2-1.3) mg/dL AST 32 (14-36) U/L ALT 23 (0-35) U/L Alkaline Phosphatase 66 (38-126) U/L Troponin I (0.000-0.033) ng/mL Serum Total Protein 7.1 (6.3-8.2) g/dL Albumin 4.2 (3.5-5.0) g/dL Procalcitonin (0.030-0.080) ng/mL Influenza Type A Ag (NEGATIVE) Influenza Type B Ag (NEGATIVE) RSV (PCR) (NEGATIVE) SARS-CoV-2 (PCR) (NEGATIVE) Group A Strep Antibody (NEGATIVE) Slides for Path Review YES 03/16/25 03/16/25 03/16/25 Range/Units 11:35 11:35 11:35 WBC (3.98-10.04) x10^3/uL RBC (3.93-5.22) x10^6/uL Hgb (11.2-15.7) g/dL Hct (34.1-44.9) % MCV (79.4-94.8) fL MCH (25.6-32.2) pg MCHC (32.2-35.5) g/dL RDW (11.7-14.4) % Plt Count (182-369) x10^3/uL MPV (9.4-12.3) fL Gran % (34.0-71.1) % Immature Gran % (Auto) (0.001-0.429) % Nucleat RBC Rel Count (0.00-0.2) % Eos # (Auto) (0.04-0.36) x10^3/uL Immature Gran # (Auto) (0.001-0.031) x10^3u/L Absolute Lymphs (auto) (1.18-3.74) x10^3/uL Absolute Monos (auto) (0.24-0.86) x10^3/uL Absolute Nucleated RBC (0.00-0.012) x10^3u/L Lymphocytes % (19.3-51.7) % Monocytes % (4.7-12.5) % Eosinophils % (0.7-5.8) % Basophils % (0.1-1.2) % Absolute Granulocytes (1.56-6.13) x10^3/uL Basophils # (0.01-0.08) x10^3/uL D-Dimer (0.0-0.50) mg/L Sodium (135-145) mmol/L Potassium (3.5-5.1) mmol/L Chloride (98-107) mmol/L Carbon Dioxide (22-30) mmol/L Anion Gap (5-15) MEQ/L BUN (7-17) mg/dL Creatinine (0.52-1.04) mg/dL Estimated GFR ML/MIN Glucose (74-106) mg/dL Lactic Acid (0.4-2.0) Calcium (8.4-10.2) mg/dL Magnesium (1.6-2.3) mg/dL Total Bilirubin (0.2-1.3) mg/dL AST (14-36) U/L ALT (0-35) U/L Alkaline Phosphatase (38-126) U/L Troponin I < 0.012 (0.000-0.033) ng/mL Serum Total Protein (6.3-8.2) g/dL Albumin (3.5-5.0) g/dL Procalcitonin (0.030-0.080) ng/mL Influenza Type A Ag NEGATIVE (NEGATIVE) Influenza Type B Ag NEGATIVE (NEGATIVE) RSV (PCR) NEGATIVE (NEGATIVE) SARS-CoV-2 (PCR) NEGATIVE (NEGATIVE) Group A Strep Antibody NOT DETECTED (NEGATIVE) Slides for Path Review 03/16/25 03/16/25 03/16/25 Range/Units 11:37 15:45 15:50 WBC (3.98-10.04) x10^3/uL RBC (3.93-5.22) x10^6/uL Hgb (11.2-15.7) g/dL Hct (34.1-44.9) % MCV (79.4-94.8) fL MCH (25.6-32.2) pg MCHC (32.2-35.5) g/dL RDW (11.7-14.4) % Plt Count (182-369) x10^3/uL MPV (9.4-12.3) fL Gran % (34.0-71.1) % Immature Gran % (Auto) (0.001-0.429) % Nucleat RBC Rel Count (0.00-0.2) % Eos # (Auto) (0.04-0.36) x10^3/uL Immature Gran # (Auto) (0.001-0.031) x10^3u/L Absolute Lymphs (auto) (1.18-3.74) x10^3/uL Absolute Monos (auto) (0.24-0.86) x10^3/uL Absolute Nucleated RBC (0.00-0.012) x10^3u/L Lymphocytes % (19.3-51.7) % Monocytes % (4.7-12.5) % Eosinophils % (0.7-5.8) % Basophils % (0.1-1.2) % Absolute Granulocytes (1.56-6.13) x10^3/uL Basophils # (0.01-0.08) x10^3/uL D-Dimer (0.0-0.50) mg/L Sodium (135-145) mmol/L Potassium (3.5-5.1) mmol/L Chloride (98-107) mmol/L Carbon Dioxide (22-30) mmol/L Anion Gap (5-15) MEQ/L BUN (7-17) mg/dL Creatinine (0.52-1.04) mg/dL Estimated GFR ML/MIN Glucose (74-106) mg/dL Lactic Acid 1.3 (0.4-2.0) Calcium (8.4-10.2) mg/dL Magnesium 2.0 (1.6-2.3) mg/dL Total Bilirubin (0.2-1.3) mg/dL AST (14-36) U/L ALT (0-35) U/L Alkaline Phosphatase (38-126) U/L Troponin I (0.000-0.033) ng/mL Serum Total Protein (6.3-8.2) g/dL Albumin (3.5-5.0) g/dL Procalcitonin 0.225 H (0.030-0.080) ng/mL Influenza Type A Ag (NEGATIVE) Influenza Type B Ag (NEGATIVE) RSV (PCR) (NEGATIVE) SARS-CoV-2 (PCR) (NEGATIVE) Group A Strep Antibody (NEGATIVE) Slides for Path Review 03/16/25 03/16/25 03/17/25 Range/Units 15:53 19:37 04:15 WBC 10.4 H (3.98-10.04) x10^3/uL RBC 4.11 (3.93-5.22) x10^6/uL Hgb 12.0 (11.2-15.7) g/dL Hct 36.0 (34.1-44.9) % MCV 87.6 (79.4-94.8) fL MCH 29.2 (25.6-32.2) pg MCHC 33.3 (32.2-35.5) g/dL RDW 13.2 (11.7-14.4) % Plt Count 290 (182-369) x10^3/uL MPV 10.0 (9.4-12.3) fL Gran % 89.4 H (34.0-71.1) % Immature Gran % (Auto) 0.7 H (0.001-0.429) % Nucleat RBC Rel Count 0.0 (0.00-0.2) % Eos # (Auto) 0 L (0.04-0.36) x10^3/uL Immature Gran # (Auto) 0.07 H (0.001-0.031) x10^3u/L Absolute Lymphs (auto) 0.78 L (1.18-3.74) x10^3/uL Absolute Monos (auto) 0.24 (0.24-0.86) x10^3/uL Absolute Nucleated RBC 0.00 (0.00-0.012) x10^3u/L Lymphocytes % 7.5 L (19.3-51.7) % Monocytes % 2.3 L (4.7-12.5) % Eosinophils % 0.0 L (0.7-5.8) % Basophils % 0.1 (0.1-1.2) % Absolute Granulocytes 9.30 H (1.56-6.13) x10^3/uL Basophils # 0.01 (0.01-0.08) x10^3/uL D-Dimer (0.0-0.50) mg/L Sodium (135-145) mmol/L Potassium (3.5-5.1) mmol/L Chloride (98-107) mmol/L Carbon Dioxide (22-30) mmol/L Anion Gap (5-15) MEQ/L BUN (7-17) mg/dL Creatinine (0.52-1.04) mg/dL Estimated GFR ML/MIN Glucose (74-106) mg/dL Lactic Acid (0.4-2.0) Calcium (8.4-10.2) mg/dL Magnesium (1.6-2.3) mg/dL Total Bilirubin (0.2-1.3) mg/dL AST (14-36) U/L ALT (0-35) U/L Alkaline Phosphatase (38-126) U/L Troponin I < 0.012 < 0.012 (0.000-0.033) ng/mL Serum Total Protein (6.3-8.2) g/dL Albumin (3.5-5.0) g/dL Procalcitonin (0.030-0.080) ng/mL Influenza Type A Ag (NEGATIVE) Influenza Type B Ag (NEGATIVE) RSV (PCR) (NEGATIVE) SARS-CoV-2 (PCR) (NEGATIVE) Group A Strep Antibody (NEGATIVE) Slides for Path Review Radiology Exams: Radiology Procedures Category Date Time Status CHEST WITH CONTRAST [CT] Stat Exams 03/16/25 12:18 Completed Medications: Medications Generic Name Dose Route Start Last Admin Trade Name Freq PRN Reason Stop Dose Admin Acetaminophen 650 mg 03/16/25 15:45 Acetaminophen 325 Mg Tablet PO 04/15/25 15:44 Q4H PRN PRN PAIN, FEVER, HEADACHE Albuterol Sulfate 2 puff 03/16/25 17:17 Albuterol Common Canister Inhaler IH 04/15/25 17:16 TID PRN PRN shortness of breath/wheezing Albuterol/Ipratropium 3 ml 03/16/25 19:00 03/17/25 01:30 Ipratropium/Albuterol Sulfate 3 Ml Ampul.Neb IH 04/15/25 18:59 3 ml Q6HRT FIFI Administration Methylprednisolone Sodium 0 mg 03/16/25 22:00 03/16/25 21:30 Succinate 40 mg/ Sterile Water IV 04/15/25 21:59 40 mg 1 ml Q12HT FIFI Administration Enoxaparin Sodium 40 mg 03/17/25 10:00 Enoxaparin Sodium 40 Mg/0.4 Ml Syringe SQ 04/16/25 09:59 DAILY FIFI Sodium Chloride 1,000 mls @ 100 mls/hr 03/16/25 15:45 03/16/25 17:16 Sodium Chloride 0.9% 1000 Ml IV 04/15/25 15:44 100 mls/hr .Q10H FIFI Administration Ceftriaxone Sodium 1 gm in 100 mls @ 200 mls/hr 03/17/25 10:00 Rocephin 1 Gm / 100 Ml Nacl IV 04/16/25 09:59 Q24H10 FIFI Azithromycin 500 mg/ Sodium 250 mls @ 250 mls/hr 03/17/25 10:00 Chloride IV 04/16/25 09:59 Q24H10 FIFI Latanoprost 0 ml 03/16/25 22:00 03/16/25 21:30 Latanoprost 2.5 Ml Bottle OP 04/15/25 21:59 2.5 ml HS FIFI Administration Lisinopril 10 mg 03/17/25 10:00 Lisinopril 10 Mg Tablet PO 04/16/25 09:59 DAILY FIFI Miscellaneous Information 1 each 03/16/25 17:30 Medication Intervention 1 Each Each 04/15/25 17:29 .RN TO CHECK FIFI Miscellaneous Information 1 each 03/16/25 17:45 Medication Intervention 1 Each Each 04/15/25 17:44 .RN TO CHECK FIFI Nicotine 14 mg 03/16/25 15:45 Nicotine 14 Mg/Patch Patch TOP 04/15/25 15:44 DAILY FIFI Ondansetron HCl 4 mg 03/16/25 15:45 Ondansetron Hcl 4 Mg/2 Ml Vial IV 04/15/25 15:44 Q6H PRN PRN NAUSEA/VOMITING Pantoprazole Sodium 40 mg 03/16/25 15:45 03/16/25 17:19 Pantoprazole 40 Mg Vial IV 04/15/25 15:44 40 mg DAILY FIFI Administration Discontinued Medications Generic Name Dose Route Start Last Admin Trade Name Sheridan PRN Reason Stop Dose Admin Albuterol/Ipratropium 3 ml 03/16/25 11:24 03/16/25 11:49 Ipratropium/Albuterol Sulfate 3 Ml Ampul.Neb IH 03/16/25 11:25 3 ml STAT ONE Administration Albuterol/Ipratropium Confirm 03/16/25 11:38 Ipratropium/Albuterol Sulfate 3 Ml Ampul.Neb Administered 03/16/25 11:39 Dose 3 ml IH .STK-MED ONE Methylprednisolone Sodium 0 mg 03/16/25 11:24 03/16/25 11:36 Succinate 125 mg/ Sterile IV 03/16/25 11:25 125 mg Water 2 ml STAT ONE Administration Ceftriaxone Sodium 2 gm in 100 mls @ 200 mls/hr 03/16/25 14:09 03/16/25 14:29 Rocephin 2 Gm/100 Ml Nacl IV 03/16/25 14:38 200 mls/hr STAT ONE 200 mls/hr Administration Azithromycin 500 mg/ Sodium 250 mls @ 250 mls/hr 03/16/25 14:09 03/16/25 16:10 Chloride IV 03/16/25 15:08 250 mls/hr STAT STA Administration Ceftriaxone Sodium Confirm 03/16/25 14:28 Rocephin 2 Gm/100 Ml Nacl Administered 03/16/25 14:29 Dose 2 gm in 100 mls @ ud IV .STK-MED ONE Methylprednisolone Sodium Succinate Confirm 03/16/25 11:35 Methylprednis Sod Succ 125 Mg/2 Ml Vial Administered 03/16/25 11:36 Dose 125 mg .ROUTE .STK-MED ONE Non-Formulary Medication 10.2 gm 03/17/25 10:00 Budesonide/Formoterol Fumarate [Symbicort 160-4.5 Mcg Inhaler] IH 04/16/25 09:59 DAILY FIFI Ondansetron HCl 4 mg 03/16/25 11:50 03/16/25 11:53 Ondansetron Hcl 4 Mg/2 Ml Vial IV 03/16/25 11:51 4 mg STAT ONE Administration Ondansetron HCl Confirm 03/16/25 11:52 Ondansetron Hcl 4 Mg/2 Ml Vial Administered 03/16/25 11:53 Dose 4 mg .ROUTE .STK-MED ONE Sterile Water Confirm 03/16/25 11:35 Water For Injection,Sterile 10 Ml Vial Administered 03/16/25 11:36 Dose 10 ml IJ .STK-MED ONE Tuberculin PPD 5 unit 03/16/25 15:28 03/16/25 20:58 Aplisol (Tuberculin,Purif.Prot.Deriv.) 5 Unit/0.1 Ml Ml ID 03/16/25 15:29 5 unit STAT ONE Administration Tuberculin PPD Confirm 03/16/25 20:50 Aplisol (Tuberculin,Purif.Prot.Deriv.) 5 Unit/0.1 Ml Ml Administered 03/16/25 20:51 Dose 5 unit ID .STK-MED ONE Assessment/Plan (1) Sepsis Current Visit: Yes Status: Acute Assessment & Plan: -Meets criteria with HR, RR, WBC at 18.4- known infection - pneumonia -CT chest demonstrated new diffuse right lung airspace disease, greatest in the right lower lobe, consistent with pneumonia -Covid/flu/rsv/strep negative -TB gold/ TB skin test per protocol -UA/lactic acid/PCT -Blood/sputum cultures pending -Ceftriaxone/azithromycin started in ED will continue -Solumedrol/DuoNebs -Supplemental oxygen with goal spo2>91% - currently on RA which is baseline -anti-pyretics/anti-emetics -PPI/Lovenox -RT eval and follow -IVF 03/17: -WBC reviewed and improving at 10.4<18.4 -LA reviewed and WNL -Procal elevated at 0.225 -TB testing pending -UA pending collection -continue antibiotic/steroids -Discontinue IVF (2) Pneumonia Current Visit: Yes Status: Acute Assessment & Plan: -see sepsis for plan Code(s): J18.9 - PNEUMONIA, UNSPECIFIED ORGANISM (3) HTN (hypertension) Current Visit: Yes Status: Acute Assessment & Plan: -stable continue home lisinopril Code(s): I10 - ESSENTIAL (PRIMARY) HYPERTENSION (4) COPD exacerbation Current Visit: Yes Status: Acute Assessment & Plan: -see plan for sepsis above Code(s): J44.1 - CHRONIC OBSTRUCTIVE PULMONARY DISEASE W (ACUTE) EXACERBATION (5) Anxiety and depression Current Visit: Yes Status: Acute Assessment & Plan: -continue home meds Code(s): F41.9 - ANXIETY DISORDER, UNSPECIFIED; F32.A - DEPRESSION, UNSPECIFIED (6) Tobacco abuse Current Visit: Yes Status: Acute Assessment & Plan: -Advised cessation- patient states she smokes/vapes -less than 1 pack/1 vape per month -Nicotine patch Code(s): Z72.0 - TOBACCO USE (7) Chronic back pain Current Visit: Yes Status: Acute Assessment & Plan: -continue home regimen VTE: Lovenox PPI: protonix Dispo: 1-2 days Code status: Full code Next of Kin Fer Dee [phone] (2) Pneumonia Current Visit: Yes Status: Acute Code(s): J18.9 - PNEUMONIA, UNSPECIFIED ORGANISM (3) HTN (hypertension) Current Visit: Yes Status: Acute Code(s): I10 - ESSENTIAL (PRIMARY) HYPERTENSION (4) COPD exacerbation Current Visit: Yes Status: Acute Code(s): J44.1 - CHRONIC OBSTRUCTIVE PULMONARY DISEASE W (ACUTE) EXACERBATION (5) Anxiety and depression Current Visit: Yes Status: Acute Code(s): F41.9 - ANXIETY DISORDER, UNSPECIFIED; F32.A - DEPRESSION, UNSPECIFIED (6) Tobacco abuse Current Visit: Yes Status: Acute Code(s): Z72.0 - TOBACCO USE (7) Chronic back pain Current Visit: Yes Status: Acute Code(s): M54.9 - DORSALGIA, UNSPECIFIED; G89.29 - OTHER CHRONIC PAIN
[2025-03-17 05:28] LABS: ALBUMIN 3.8 g/dL (3.5-5.0); ANION GAP 14.7 MEQ/L (5-15); BILIRUBIN,TOTAL 0.4 mg/dL (0.2-1.3); Calcium 9.5 mg/dL (8.4-10.2); Creatinine 1 0.56 mg/dL (0.52-1.04); EST GLOMERULAR FILTRATION RATE 105.1 ML/MIN; Potassium 4.1 mmol/L (3.5-5.1); Total Protein 6.4 g/dL (6.3-8.2)
[2025-03-17] MEDS: TYLENOL 325 MG PO PRN (07:41)
[2025-03-17] MEDS: ROCEPHIN 1 GM / 100 ML NaCl 1 GM/100 ML IVPB IV SCH (09:30)
[2025-03-17] MEDS: ENOXAPARIN SODIUM SQ SCH (09:35)
[2025-03-17] MEDS: Zestril 10 MG PO SCH (09:39)
[2025-03-17] MEDS: ZITHROMAX IV*** 500 MG in Sodium Chloride 0.9% 250 ML 250 ML IV SCH (09:48)
[2025-03-17] MEDS ORDERED: Zestril 5 MG PO SCH (10:00)
[2025-03-17] MEDS ORDERED: NON-FORMULARY ITEM (Rimegepant Sulfate [Nurtec Odt] 75 MG Tab.Rapdis) PO SCH (10:00)
[2025-03-17] MEDS ORDERED: NON-FORMULARY ITEM (Budesonide/Formoterol Fumarate [Symbicort 160-4.5 Mcg Inhaler] 10.2 GM IH SCH (10:00)
[2025-03-17] MEDS ORDERED: LURASIDONE HCL 120 MG PO SCH (10:00)
[2025-03-17] MEDS ORDERED: solu-MEDROL ONE (22:32)
[2025-03-18 05:02] LABS: Absolute Neutrophil Ct (ANC) 14.23 x10^3/uL (1.56-6.13); BASOPHIL % 0.2 % (0.1-1.2); Basophil (Absolute #) 0.03 x10^3/uL (0.01-0.08); Eosinophil (Absolute #) 0 x10^3/uL (0.04-0.36); Hematocrit 34.8 % (34.1-44.9); Hemoglobin 11.3 g/dL (11.2-15.7); IMMATURE GRAN # 0.18 x10^3u/L (0.001-0.031); IMMATURE GRAN % 1.1 % (0.001-0.429); Lymphocyte (Absolute #) 0.79 x10^3/uL (1.18-3.74); Mean Cell Volume 89.5 fL (79.4-94.8); Mean Corpuscular Hgb Concent. 32.5 g/dL (32.2-35.5); Mean Platelet Volume 10.3 fL (9.4-12.3); Monocytes % 3.8 % (4.7-12.5); Neutrophil % 89.9 % (34.0-71.1); Platelet Count 283 x10^3/uL (182-369); Red Blood Count 3.89 x10^6/uL (3.93-5.22); Red Cell Distribution Width 13.5 % (11.7-14.4); White Blood Count 15.8 x10^3/uL (3.98-10.04)
--- NOTE | 2025-03-18 05:14 | PCM.DS ---
Discharge Summary Date of Admission: 03/16/25 14:55 Date of Discharge: 03/18/25 Admitting Physician: ALLYSON DUMONT MD Primary Care Provider: BHARGAV ALANIS MD Allergies Allergies bupropion HCl [From Wellbutrin] Allergy (Mild, Verified 08/07/24 23:20) CVA SYMPTOMS citalopram hydrobromide [From Celexa] Allergy (Mild, Verified 08/07/24 23:20) UNKNOWN REACTION naproxen Allergy (Mild, Verified 08/07/24 23:20) VOMIT BLOOD sumatriptan [From Imitrex] Allergy (Mild, Verified 08/07/24 23:20) Headache ELEVATES BLOOD PRESSURE sumatriptan succinate [From Imitrex] Allergy (Mild, Verified 08/07/24 23:20) Headache ELEVATES BLOOD PRESSURE Hospital Summary - Hospital Course Hospital Course: Ms. Matias is a 59-year-old female with a history of COPD (on room air at baseline), hypertension, tobacco use disorder, GERD, anxiety/depression, panic disorder, and chronic back pain who was admitted for sepsis secondary to community-acquired pneumonia. She presented with a 6-day history of progressive dyspnea, productive cough, fevers, chills, nausea, and vomiting. Initial workup revealed leukocytosis (WBC 18.4), elevated anion gap, and a positive D-dimer. CTA chest ruled out pulmonary embolism but showed new right-sided airspace disease consistent with pneumonia. COVID-19, influenza, RSV, and streptococcal testing were negative. She was treated with ceftriaxone, azithromycin, Solu- Medrol, and bronchodilators with clinical improvement. Sepsis resolved. Her white blood cell count trended down to 10.4, and she remained on room air throughout hospitalization. GI symptoms resolved, and she tolerated oral intake. Despite persistent weakness, she is clinically stable for discharge. She will be discharged on cefuroxime and prednisone with follow-up for pending culture results. Smoking cessation was discussed, and a nicotine patch was offered. Discharge Note New Diagnosis: Pneumonia New Medications: cefuroxime/prednisone Follow Up: PCP Results pending: Blood/sputum cultures I spent 35 minutes [id number] with the patient on the day of discharge performing discharge exam, discussing hospital stay and discharge instructions with patient and caregivers, preparation of discharge records, prescriptions & referral forms and addressing any questions/concerns the patient had as documented above. - Vitals & Intake/Output Vital Signs: Vital Signs Temperature 96.9 F 03/18/25 04:00 Pulse Rate 86 03/18/25 04:00 Respiratory Rate 16 03/18/25 04:00 Blood Pressure 99/50 03/18/25 04:00 O2 Sat by Pulse Oximetry 95 03/18/25 04:00 Intake & Output: Intake & Output 03/15/25 03/16/25 03/17/25 03/18/25 11:59 11:59 11:59 11:59 Intake Total 2556 1540 Balance 2556 1540 Weight 75 kg 75.6 kg - Lab Result Diagrams: 03/18/25 04:57 03/18/25 04:57 Lab Results-Last 24 Hrs: Lab Results-Last 24 Hours 03/16/25 03/17/25 Range/Units 11:35 04:15 Sodium 141 (135-145) mmol/L Potassium 4.1 (3.5-5.1) mmol/L Chloride 109 H (98-107) mmol/L Carbon Dioxide 22 (22-30) mmol/L Anion Gap 14.7 (5-15) MEQ/L BUN 12 (7-17) mg/dL Creatinine 0.56 (0.52-1.04) mg/dL Estimated GFR 105.1 ML/MIN Glucose 165 H (74-106) mg/dL Calcium 9.5 (8.4-10.2) mg/dL Total Bilirubin 0.40 (0.2-1.3) mg/dL AST 27 (14-36) U/L ALT 21 (0-35) U/L Alkaline Phosphatase 68 (38-126) U/L Troponin I < 0.012 (0.000-0.033) ng/mL Serum Total Protein 6.4 (6.3-8.2) g/dL Albumin 3.8 (3.5-5.0) g/dL - Radiology Exams Ordered Rad Exams-Entire Visit: Radiology Procedures Category Date Time Status CHEST WITH CONTRAST [CT] Stat Exams 03/16/25 12:18 Completed - Procedures and Test Procedures and Tests throughout Hospitalization: Therapy Orders & Screens 03/16/25 11:54 Respiratory Therapy Assessment DAILY Comment: 03/16/25 15:45 Respiratory Therapy Consult ONCE Comment: Reason For Exam: Diagnosis: pneumonia 03/16/25 16:20 Flutter Therapy UD Comment: Diagnosis: COPD exacerbation, pneumonia 03/17/25 07:23 Respiratory MDI BID Comment: Diagnosis: COPD exacerbation, hypoxia, leukocytosis, cough Discharge Exam General Appearance: no apparent distress Neurologic Exam: alert, oriented x 3, cooperative Eye Exam: PERRL Ears, Nose, Throat Exam: normal ENT inspection Neck Exam: normal inspection Respiratory Exam: crackles/rales, wheezing Cardiovascular Exam: regular rate/rhythm, normal heart sounds Gastrointestinal/Abdomen Exam: soft, normal bowel sounds Pelvic Exam: deferred Rectal Exam: deferred Back Exam: normal inspection Extremity Exam: normal inspection Skin Exam: normal color Final Diagnosis/Problem List - Final Discharge Diagnosis/Problem (1) Sepsis Current Visit: Yes Status: Resolved (2) Pneumonia Current Visit: Yes Status: Acute Code(s): J18.9 - PNEUMONIA, UNSPECIFIED ORGANISM (3) HTN (hypertension) Current Visit: Yes Status: Chronic Code(s): I10 - ESSENTIAL (PRIMARY) HYPERTENSION (4) COPD exacerbation Current Visit: Yes Status: Acute Code(s): J44.1 - CHRONIC OBSTRUCTIVE PULMONARY DISEASE W (ACUTE) EXACERBATION (5) Anxiety and depression Current Visit: Yes Status: Chronic Code(s): F41.9 - ANXIETY DISORDER, UNSPECIFIED; F32.A - DEPRESSION, UNSPECIFIED (6) Tobacco abuse Current Visit: Yes Status: Chronic Code(s): Z72.0 - TOBACCO USE (7) Chronic back pain Current Visit: Yes Status: Chronic Code(s): M54.9 - DORSALGIA, UNSPECIFIED; G89.29 - OTHER CHRONIC PAIN - Discharge Discharge Date: 03/18/25 Disposition: Home, Self-Care Condition: Stable Prescriptions: New cefuroxime axetiL [Cefuroxime] 500 mg PO BID 10 Days #20 tablet Prednisone 20 mg [Deltasone 20 mg] 20 mg PO BID 5 Days #10 tablet Albuterol/Ipratropium 3ml Neb* [DUONEB 0.5-3 MG/3 ml Neb] 3 ml IH Q6H PRN 30 Days #120 amp PRN Reason: Shortness Of Breath/Wheezing PANTOPRAZOLE 40 mg Tablet [Protonix 40MG Tablet] 40 mg PO QAM 30 Days #30 tab Continue Albuterol Sulfate [Proair Hfa] 2 puffs IH TID PRN PRN PRN Reason: shortness of breath/wheezing Ondansetron [Ondansetron Odt ] 8 mg PO DAILY PRN PRN PRN Reason: Nausea Latanoprost 2.5 ml DROPS HS Lurasidone HCl [Latuda] 120 mg PO DAILY Rimegepant Sulfate [Nurtec Odt] 75 mg PO HS PRN PRN Reason: Pain Lisinopril 5 mg [Zestril 5 MG] 10 mg PO DAILY Budesonide/Formoterol Fumarate [Symbicort 160-4.5 Mcg Inhaler] 10.2 gm IH DAILY Follow up with: BHARGAV ALANIS MD [Primary Care Provider] -
[2025-03-18 05:39] LABS: ALBUMIN 3.6 g/dL (3.5-5.0); BILIRUBIN,TOTAL 0.2 mg/dL (0.2-1.3); Calcium 9.4 mg/dL (8.4-10.2); Creatinine 1 0.68 mg/dL (0.52-1.04); EST GLOMERULAR FILTRATION RATE 100.3 ML/MIN; Potassium 4.2 mmol/L (3.5-5.1); Total Protein 6.3 g/dL (6.3-8.2)
[2025-03-18 08:20] VITALS: BP 118/66; PULSE 91; RESP 22; TEMP 96; O2SAT 97
[2025-03-19 13:18] LABS: QuantiFERON-TB Gold Plus Negative (Negative)
== END 2025-03-18 11:45 | disposition home or self-care (01) ==
LOC: ED 10:54 → MED SURG 14:55
PROVIDERS: ADMIT Internal Medicine; ATTEND Internal Medicine
DX: A41.9 Sepsis, unspecified organism (principal); J18.9 Pneumonia, unspecified organism; I10 Essential (primary) hypertension; J44.1 Chronic obstructive pulmonary disease with (acute) exacerbation; F41.9 Anxiety disorder, unspecified; F32.A Depression, unspecified; M54.9 Dorsalgia, unspecified; G89.29 Other chronic pain; R07.9 Chest pain, unspecified; Z72.0 Tobacco use; Z79.899 Other long term (current) drug therapy
CPT/HCPCS: 0241U; 36415; 71260; 80053; 83605; 83735; 84145; 84484; 85025; 85379; 86480; 87040; 87651; 93041; 93268; 94640; 94667; 94668; 94760; 96374; 96375; 99285; G0378; Q3014; J0456; J0696; J1650; J2405; J2919; A9270-GY